=== PATIENT | female | born 1960 | race American Indian/Alaskan Native ===

== ENCOUNTER 2018-04-10 10:39 | Emergency (ER) | payer MEDICARE ==
[2018-04-10 11:46] VITALS: BP 149/67
[2018-04-10] MEDS ORDERED: NORCO 5/325 PO ONE (11:54)
--- NOTE | 2018-04-10 12:20 | Emergency Department Report ---
ED Headache HPI - General Chief Complaint: Dyspnea/Respdistress Stated Complaint: DIFFICULTY BREATHING/HEADACHE Time Seen by Provider: 04/10/18 11:24 - History of Present Illness Initial Comments: Ms. Guillermo is 58 yo female wit hx of ESRD, SC, HTN. She has had headache and shortness of breath for 2 weeks. These symptoms have occurred after dialysis. her traffic sign supervisor Dr. Scales has adjusted her dialysis due to these symptoms. However, she continues to have headache and dyspnea. Moderate left frontal left temporal headache throbbing. No chest pain. Timing/Duration: other (2 weeks) Quality: moderate Head Injury Location: frontal, temporal Recent Head Trauma: no recent headache/trauma Modifying Factors: improves with: other (none) Associated Symptoms: denies symptoms Allergies/Adverse Reactions: Allergies Penicillins Allergy (Severe, Verified 04/10/18 11:21) Anaphylaxis Calcium Channel Blocking Agent Dilt Allergy (Unknown, Verified 04/10/18 11:21) Unknown nifedipine Allergy (Unknown, Verified 04/10/18 11:23) Unknown JOHN Inhibitors Adverse Reaction (Unknown, Verified 04/10/18 11:20) Unknown Iodinated Contrast- Oral and IV Dye Adverse Reaction (Unknown, Verified 11:22) Unknown Home Medications: Ambulatory Orders traMADol [Ultram 50 MG tab] 50 mg PO Q6HR PRN #10 tablet 04/10/18 ED Review of Systems ROS: Stated complaint: DIFFICULTY BREATHING/HEADACHE Other details as noted in HPI Comment: All other systems reviewed and negative Constitutional: denies: fever, malaise Respiratory: denies: cough Cardiovascular: denies: chest pain ED Past Medical Hx - Past Medical History Previous Medical History?: Yes Hx Hypertension: Yes Hx Heart Attack/AMI: Yes (2010) Hx Renal Disease: Yes - Surgical History Past Surgical History?: Yes Hx Cholecystectomy: Yes (2011) Additional Surgical History: Stent x1 01/18, fistula left arm, gastric bypass 2013, - Social History Other Social History: lives with family, moved from [place] June 2017 - Medications Home Medications: Home Medications Medication Instructions Recorded Confirmed Last Taken Type traMADol [Ultram 50 MG tab] 50 mg PO Q6HR PRN #10 tablet 04/10/18 Unknown Rx ED Physical Exam - General Limitations: No Limitations General appearance: alert, in no apparent distress - Head Head exam: Present: atraumatic, normocephalic - Eye Eye exam: Present: normal appearance - ENT ENT exam: Present: mucous membranes moist - Neck Neck exam: Present: normal inspection. Absent: tenderness, meningismus - Respiratory Respiratory exam: Present: normal lung sounds bilaterally. Absent: respiratory distress - Cardiovascular Cardiovascular Exam: Present: regular rate, normal rhythm, normal heart sounds. Absent: systolic murmur, diastolic murmur, rubs, gallop - GI/Abdominal GI/Abdominal exam: Present: soft, normal bowel sounds. Absent: tenderness, guarding, rebound - Extremities Exam Extremities exam: Present: normal inspection - Back Exam Back exam: Present: normal inspection - Neurological Exam Neurological exam: Present: alert, oriented X3 - Psychiatric Psychiatric exam: Present: normal affect, normal mood - Skin Skin exam: Present: warm, dry, intact, normal color. Absent: rash ED Course Vital Signs 04/10/18 04/10/18 04/10/18 11:02 11:15 11:30 Temperature Pulse Rate 91 H 78 70 Respiratory 22 13 12 Rate Blood Pressure 136/61 149/67 Blood Pressure [Right] O2 Sat by Pulse 100 100 Oximetry 04/10/18 11:34 Temperature 98.9 F Pulse Rate 65 Respiratory 18 Rate Blood Pressure Blood Pressure 136/61 [Right] O2 Sat by Pulse 100 Oximetry ED Medical Decision Making - Lab Data Vital Signs - 24 hr 04/10/18 04/10/18 04/10/18 11:02 11:15 11:30 Temperature Pulse Rate 91 H 78 70 Respiratory 22 13 12 Rate Blood Pressure 136/61 149/67 Blood Pressure [Right] O2 Sat by Pulse 100 100 Oximetry 04/10/18 11:34 Temperature 98.9 F Pulse Rate 65 Respiratory 18 Rate Blood Pressure Blood Pressure 136/61 [Right] O2 Sat by Pulse 100 Oximetry - Medical Decision Making Headache and dyspnea after dialysis for 2 weeks. I do feel that her symptoms are related to dialysis treatment. While in the ED, Ms. Guillermo is resting comfortably, sleeping under the covers. No indication of CVA, intracranial hemorrhage, PE, pneumonia, CHF, ACS. I consulted Dr. Ortiz who was traffic sign supervisor on-call for [facility]. Dr. Ortiz recommended follow-up tomorrow at Dr. Scales's nephrology clinic. I have prescribed tramadol for headache as needed. Critical care attestation.: If time is entered above; I have spent that time in minutes in the direct care of this critically ill patient, excluding procedure time. ED Disposition Clinical Impression: Headache, Shortness of breath, End stage renal disease Disposition: TO HOME OR SELFCARE Is pt being admited?: No Does the pt Need Aspirin: No Condition: Stable Instructions: Acute Headache (ED) Prescriptions: traMADol [Ultram 50 MG tab] 50 mg PO Q6HR PRN #10 tablet PRN Reason: Headache Referrals: DOMINGA SCALES MD [Staff Physician] - 3-5 Days Time of Disposition: 12:50
== END 2018-04-10 13:18 | disposition home or self-care (01) ==
LOC: ED 10:39
DX: I12.0 Hypertensive chronic kidney disease with stage 5 chronic kidney disease or end stage renal disease (principal); N18.6 End stage renal disease; R51 Headache; R06.02 Shortness of breath; I25.2 Old myocardial infarction; Z90.49 Acquired absence of other specified parts of digestive tract; Z95.1 Presence of aortocoronary bypass graft; Z88.0 Allergy status to penicillin; Z91.041 Radiographic dye allergy status; Z99.2 Dependence on renal dialysis
CPT/HCPCS: 99283

== ENCOUNTER 2019-04-02 13:07 | Emergency (ER) | payer MEDICARE ==
--- NOTE | 2019-04-02 13:20 | Emergency Department Report ---
Blank Doc - Documentation Documentation: 59 y o female presents with nausea started sunday dialysis patient MWF denies dysuria,f/abd pain, diarhea
[2019-04-02 14:16] LABS: Basophils # (Auto) 0.1 K/mm3 (0.0-0.1); Basophils % (Auto) 0.7 % (0.0-1.8); Eosinophils # (Auto) 0.6 K/mm3 (0.0-0.4); Eosinophils % (Auto) 5.9 % (0.0-4.3); Hematocrit 41.9 % (30.3-42.9); Hemoglobin 13.8 gm/dl (10.1-14.3); Lymphocytes # (Auto) 1.1 K/mm3 (1.2-5.4); Lymphocytes % (Auto) 10.1 % (13.4-35.0); Mean Corpuscular HGB Conc 33 % (30-34); Mean Corpuscular Volume 97 fl (79-97); Monocytes # (Auto) 0.9 K/mm3 (0.0-0.8); Monocytes % (Auto) 8.1 % (0.0-7.3); Red Blood Count 4.33 M/mm3 (3.65-5.03); Red Cell Distribution Width 15.5 % (13.2-15.2)
[2019-04-02 14:23] LABS: Calcium 7.5 mg/dL (8.4-10.2)
[2019-04-02 16:11] LABS: Platelet Count 207 K/mm3 (140-440)
[2019-04-02] MEDS ORDERED: ZOFRAN IV ONE (18:03)
[2019-04-02] MEDS ORDERED: NACL 0.9% 500 ML 500 ML IV ONE (18:03)
--- NOTE | 2019-04-02 18:08 | Emergency Department Report ---
HPI - General Chief Complaint: Nausea/Vomiting/Diarrhea Time Seen by Provider: 04/02/19 13:17 - HPI HPI: Room 7 The patient is a 59-year-old female presenting with a chief complaint of nausea and lightheadedness. The patient states for the past 5 days she's had intermittent lightheadedness and nausea. The patient states during first day she had some vomiting but none recently. Patient denies diarrhea but states her stool has been black for the past 5 days. Patient denies history of fever. Patient denies use of Pepto-Bismol Location: [See above] Duration: [See above] Quality: [See above] Severity: [See above] Modifying factors: [see above] Context: [see above] Mode of transportation: [not driving] ED Past Medical Hx - Past Medical History Previous Medical History?: Yes Hx Hypertension: Yes Hx Heart Attack/AMI: Yes (2010) Hx Renal Disease: Yes - Surgical History Past Surgical History?: Yes Hx Cholecystectomy: Yes (2011) Additional Surgical History: Stent x1 01/18, fistula left arm, gastric bypass 2013, - Family History Family history: no significant - Social History Smoking Status: Never Smoker Substance Use Type: None, Alcohol (occasional) - Medications Home Medications: Home Medications Medication Instructions Recorded Confirmed Last Taken Type traMADol [Ultram 50 MG tab] 50 mg PO Q6HR PRN #10 tablet 04/10/18 Unknown Rx Promethazine [Phenergan] 25 mg PO Q6HR PRN #20 tab 04/03/19 Unknown Rx Promethazine [Phenergan] 25 mg ID Q6HR PRN #5 supp.rect 04/03/19 Unknown Rx ED Review of Systems ROS: Stated complaint: ABDOMINAL PAIN Other details as noted in HPI Constitutional: denies: fever Eyes: denies: eye pain ENT: denies: throat pain Respiratory: no symptoms reported Cardiovascular: denies: chest pain Endocrine: no symptoms reported Gastrointestinal: nausea, vomiting, melena. denies: abdominal pain, diarrhea Genitourinary: denies: dysuria Musculoskeletal: denies: back pain Neurological: denies: headache Physical Exam - Physical Exam Vital Signs: Vital Signs 04/02/19 13:16 Temperature 97.7 F Pulse Rate 63 Respiratory 16 Rate Blood Pressure 94/57 O2 Sat by Pulse 99 Oximetry Physical Exam: GENERAL: The patient is well-developed well-nourished female lying on stretcher not appear to be in acute distress. [] HEENT: Normocephalic. Atraumatic. Extraocular motions are intact. Patient has moist mucous membranes. NECK: Supple. Trachea midline CHEST/LUNGS: Clear to auscultation. There is no respiratory distress noted. HEART/CARDIOVASCULAR: Regular. There is no tachycardia. There is no gallop rub or murmur. ABDOMEN: Abdomen is soft, with mild midepigastric discomfort to palpation. No rebound or guarding. Patient has normal bowel sounds. There is no abdominal distention. SKIN: There is no rash. There is no edema. There is no diaphoresis. NEURO: The patient is awake, alert, and oriented. The patient is cooperative. The patient has normal speech MUSCULOSKELETAL: There is no evidence of acute injury. RECTAL: Guaiac negative brown stool ED Course Vital Signs 04/02/19 13:16 Temperature 97.7 F Pulse Rate 63 Respiratory 16 Rate Blood Pressure 94/57 O2 Sat by Pulse 99 Oximetry - Reevaluation(s) Reevaluation #1: 04/03/19 01:55 Patient tolerating by mouth. CT scan discussed with patient including left renal mass. Need for follow-up explained. Patient verbalized understanding ED Medical Decision Making - Lab Data Result diagrams: 04/02/19 13:32 04/02/19 13:32 - Differential Diagnosis GI bleed Critical care attestation.: If time is entered above; I have spent that time in minutes in the direct care of this critically ill patient, excluding procedure time. ED Disposition Clinical Impression: Nausea & vomiting Disposition: DC-01 TO HOME OR SELFCARE Is pt being admited?: No Does the pt Need Aspirin: No Condition: Stable Instructions: Acute Nausea and Vomiting (ED) Additional Instructions: Return to the emergency department immediately should you develop worsening symptoms, fever, inability to tolerate food or liquid or any other concerns. Prescriptions: Promethazine [Phenergan] 25 mg PO Q6HR PRN #20 tab PRN Reason: Nausea Promethazine [Phenergan] 25 mg ID Q6HR PRN #5 supp.rect PRN Reason: Vomiting Referrals: [facility] MD HERNANDO [Primary Care Provider] - 3-5 Days SITA MERRILL MD [Staff Physician] - [facility] (Dr. Merrill is a gastroenterologi st. Please follow up with him for further evaluation) Time of Disposition: 01:57
[2019-04-02 20:35] LABS: INR 1.13 (0.87-1.13)
[2019-04-02 20:36] LABS: Partial Thromboplastin Time 27.2 Sec. (24.2-36.6)
[2019-04-02 20:44] LABS: Alanine Aminotransferase 11 units/L (7-56); Albumin 3.7 g/dL (3.9-5)
[2019-04-02 20:51] LABS: Bilirubin,Direct < 0.2 mg/dL (0-0.2)
[2019-04-02] MEDS ORDERED: REGLAN IV ONE (23:23)
--- NOTE | 2019-04-03 01:05 | Cat Scan Report ---
PROCEDURE: CT abdomen and pelvis without contrast. TECHNIQUE: Computerized axial tomography of the abdomen and pelvis was performed without intravenous contrast. This study is performed without intravascular contrast material and its sensitivity for ab dominal and pelvic pathology, including neoplasms, inflammation, abscess, free fluid, thrombosis, art erial dissection and infarction, is reduced compared with a contrast enhanced study. CT DOSE LENGTH PRODUCT: 1536.1 mGycm HISTORY: vomiting COMPARISONS: None. FINDINGS: The lung bases are clear. There are no pleural effusions. The heart size is normal. The liver, pancre as and spleen are grossly normal. Cholecystectomy clips are present. There is no biliary dilatation. The adrenal glands are not enlarged. Both kidneys are very small. There is a low-attenuation mass in the lateral aspect of the left kidney. This measures 1.6 cm in diameter. This could represent a simpl e cyst. It is an indeterminate finding. It be better evaluated by ultrasound scanning. The abdominal aorta has a normal caliber. There is no retroperitoneal adenopathy. There are surgical shannan in the stomach. There are also some small bowel surgical shannan. There are no signs of intestinal obstruct ion. A normal appendix is visible. There are a few diverticula in the sigmoid colon. The bladder, christi marcie and adnexal regions are unremarkable. There is a small midline ventral wall hernia located superi or to the umbilicus. This contains abdominal fat. The regional skeleton appears intact. There is paige re disc space narrowing at L5-S1. IMPRESSION: Previous cholecystectomy. Bilateral renal atrophy. Small indeterminate left renal mass. Ultrasound ev aluation should be considered. Previous gastric and small bowel surgery. Small ventral wall hernia co ntaining fat. This document is electronically signed by Miguel Fletcher MD., April 03 2019 01:03:34 AM ET
[2019-04-03] MEDS ORDERED: PHENERGAN PO ONE (01:14)
[2019-04-03 02:44] VITALS: BP 129/55
== END 2019-04-03 02:30 | disposition home or self-care (01) ==
LOC: ED 13:07
DX: R11.2 Nausea with vomiting, unspecified (principal); R42 Dizziness and giddiness; I10 Essential (primary) hypertension; I21.9 Acute myocardial infarction, unspecified; K92.1 Melena; Z88.0 Allergy status to penicillin; Z88.8 Allergy status to other drugs, medicaments and biological substances; Z87.442 Personal history of urinary calculi; Z90.49 Acquired absence of other specified parts of digestive tract; Z95.1 Presence of aortocoronary bypass graft; Z98.84 Bariatric surgery status; Z79.899 Other long term (current) drug therapy
CPT/HCPCS: 36415; 74176; 80048; 80076; 82271; 85025; 85610; 85730; 86850; 86900; 86901; 96374; 96375; 99284; J2405; J2765; J7040; Q0169

== ENCOUNTER 2019-04-07 10:19 | Inpatient (IN) | payer MEDICARE ==
--- NOTE | 2019-04-07 11:19 | Emergency Department Report ---
Vomiting/Diarrhea - HPI Chief Complaint: Abdominal Pain Stated Complaint: ABD PAIN/NAUSEA Time Seen by Provider: 04/07/19 10:57 Duration: 5 Days Severity: mild Nausea/Vomiting Severity: Mild Diarrhea Severity: None Pain Location: Right Sided Pain Severity: Mild Symptoms: Yes Able to Tolerate Fluids, No Watery Diarrhea, No Bloody diarrhea, No Fever, No Recent Unusual Foods, No Recent Untreated Water, No Recent use of Antibiotics, No Family w/ Similar Symptoms, No Contacts w/ Similar Symptoms, No Rash, No Hematuria, No Recent URI Symptoms Other History: This is a 59-year-old female who presents to the emergency room with nausea and vomiting for several days. Patient states she was seen in this emergency room 3 days ago with similar symptoms. She was diagnosed with a mass to the left kidney. Patient was referred to senior javascript engineer with no follow- up. Patient states her symptoms are not improving with nausea medication prescribed. She reports pain is all right upper quadrant abdominal pain radiating to back. Patient states she usually have dialysis today but didn't go due to not feeling well. She denies diarrhea, urinary frequency, urgency, dysuria, fever, or chills. ED Review of Systems ROS: Stated complaint: ABD PAIN/NAUSEA Other details as noted in HPI Constitutional: denies: chills, fever Respiratory: denies: cough, shortness of breath, wheezing Cardiovascular: denies: chest pain, palpitations Gastrointestinal: abdominal pain, nausea, vomiting. denies: diarrhea Genitourinary: denies: urgency, dysuria, discharge Musculoskeletal: back pain Skin: denies: rash, lesions Neurological: denies: headache, weakness, paresthesias Psychiatric: denies: anxiety, depression ED Past Medical Hx - Past Medical History Previous Medical History?: Yes Hx Hypertension: Yes Hx Heart Attack/AMI: Yes (2010) Hx Renal Disease: Yes - Surgical History Past Surgical History?: Yes Hx Cholecystectomy: Yes (2011) Additional Surgical History: Stent x1 01/18, fistula left arm, gastric bypass 2013, - Social History Smoking Status: Never Smoker Substance Use Type: None - Medications Home Medications: Home Medications Medication Instructions Recorded Confirmed Last Taken Type traMADol [Ultram 50 MG tab] 50 mg PO Q6HR PRN #10 tablet 04/10/18 Unknown Rx Promethazine [Phenergan] 25 mg PO Q6HR PRN #20 tab 04/03/19 Unknown Rx Promethazine [Phenergan] 25 mg AR Q6HR PRN #5 supp.rect 04/03/19 Unknown Rx Vomiting Diarrhea Exam - Exam General: Vital signs noted. No distress. Alert and acting appropriately. HEENT: Yes Moist Mucous Membranes, No Pharyngeal Erythema, No Pharyngeal Exudates, No Rhinorrhea, No Conjuctival Injection, No Frontal Tenderness, No Maxillary Tenderness Neck: No Adenopathy, No Rigidity Lungs: Yes Clear Lung Sounds, Yes Good Air Exchange, No Wheezes, No Stridor, No Cough, No Nasal Flaring, No Retractions, No Use of Accessory Muscles Heart exam: Regular: Yes, Murmur: No, Tachycardia: No Abdomen: Tenderness: Yes (right upper quadrant and right lower quadrant), Peritoneal Signs: No, Distention: No, Hyperactive Bowel sounds: No Skin exam: Rash: No, Edema: No, Normal turgor: Yes Neurologic: Alert and oriented, no deficits. Musculoskeletal: Unremarkable. ED Course Vital Signs 04/07/19 10:25 Temperature 98.2 F Pulse Rate 61 Respiratory 18 Rate Blood Pressure 139/63 O2 Sat by Pulse 99 Oximetry - Reevaluation(s) Reevaluation #1: 04/07/19 12:34 Consulted [facility] and spoke with nurse practitioner Christine Lewis on behalf of Dr. Kimball to admit for dialysis. 7 requested nephrology agreed to admit patient for dialysis via hospitalist. Consulted Dr. Nieto who agreed to admit patient. ED Medical Decision Making - Lab Data Result diagrams: 04/07/19 11:27 04/07/19 11:27 Lab Results 04/07/19 04/07/19 Range/Units 11:27 11:27 WBC 9.3 (4.5-11.0) K/mm3 RBC 4.41 (3.65-5.03) M/mm3 Hgb 14.2 (10.1-14.3) gm/dl Hct 43.3 H (30.3-42.9) % MCV 98 H (79-97) fl MCH 32 (28-32) pg MCHC 33 (30-34) % RDW 15.7 H (13.2-15.2) % Plt Count 180 (140-440) K/mm3 Sodium 135 L (137-145) mmol/L Potassium 6.2 H* D (3.6-5.0) mmol/L Chloride 97.4 L (98-107) mmol/L Carbon Dioxide 18 L (22-30) mmol/L Anion Gap 26 mmol/L BUN 78 H (7-17) mg/dL Creatinine 14.1 H (0.7-1.2) mg/dL Estimated GFR 3 ml/min BUN/Creatinine Ratio 6 % Glucose 94 (65-100) mg/dL Calcium 7.3 L (8.4-10.2) mg/dL - EKG Data -: No EKG Interpreted by Me (EKG interpreted by attending Dr. Kaba) EKG shows normal: sinus rhythm Rate: bradycardia - Medical Decision Making Patient was examined by me. Vitals are normal and patient is in no acute distress. Past medical history IA in 2010, hypertension, and end-stage renal disease on dialysis. She was seen in this emergency room 5 days ago with similar symptoms. She had labs and CT of abdomen and pelvis. The CT found a left renal mass and small ventral wall hernia. The patient was referred to Dr. Merrill who is a senior javascript engineer for follow-up which she has not called and made an appointment. Some labs were obtained to rule out dehydration. Patient instructed to follow-up with the senior javascript engineer and the importance. Reviewed labs and require dialysis. Consulted attending Jemma Collins who advised patient be admitted. Consulted her industrial plant custodian at [facility] who agreed to admit the patient via hospitalist. Consulted Dr. Nieto who agreed to admit patient. Critical care attestation.: If time is entered above; I have spent that time in minutes in the direct care of this critically ill patient, excluding procedure time. ED Disposition Clinical Impression: ESRD on dialysis, Acute renal disease, Hyperkalemia Nausea & vomiting Qualifiers: Vomiting type: unspecified Vomiting Intractability: non-intractable Qualified Code(s): R11.2 - Nausea with vomiting, unspecified Disposition: DC-09 OP ADMIT IP TO THIS HOSP Is pt being admited?: Yes Condition: Stable Instructions: Abdominal Pain (ED) Referrals: BRAEDEN SETHI MD [Primary Care Provider] - 3-5 Days
[2019-04-07 11:52] LABS: Hematocrit 43.3 % (30.3-42.9); Hemoglobin 14.2 gm/dl (10.1-14.3); Mean Corpuscular HGB Conc 33 % (30-34); Mean Corpuscular Volume 98 fl (79-97); Platelet Count 180 K/mm3 (140-440); Red Blood Count 4.41 M/mm3 (3.65-5.03); Red Cell Distribution Width 15.7 % (13.2-15.2)
[2019-04-07 12:03] LABS: Calcium 7.3 mg/dL (8.4-10.2)
[2019-04-07] MEDS ORDERED: KIONEX PO ONE (12:38)
[2019-04-07] MEDS ORDERED: CALCIUM CHLORIDE 1,000 MG in NACL 0.9% 100 ML IV ONE (12:38)
--- NOTE | 2019-04-07 12:54 | History and Physical Report ---
History of Present Illness Chief complaint: My stomach hurts, and Im nauseated, and rudy been throwing up. History of present illness: 59 YO Female with ESRD on HD (M,W,F), Obesity S/P Gastric Bypass, Noncompliant with low carbohydrate diet, CAD S/P Stent Placement, HTN, Obesity, ME presents to ED for evaluation. Pt states that she has experienced Abdominal pain over the past 1 week, with worsening symptoms over the past 3 days. Pt also reports nausea, multiple episodes of bilious vomiting. Pt states that pain is 5-6/10, localized to the Right Upper quadrant with radiating to the back. Pt states that she was feeling too sick today to go to dialysis. Pt transported to [facility] via private vehicle. Pt seen and evaluated in ED and found to have ESRD in need of dialysis, Acidosis, Abdominal Pain. No prior admissions for review. All listed medication reconciled at time of admission. CT Abdomen/Pelvis pending at time of admission. Pt admitted to medical floor with remote telemetry. Nephrology consulted in ED. Dialysis as per renal team. No prior admission for review. Past History Past Medical History: acute ME, CAD, ESRD, hypertension, other (Obesity') Past Surgical History: cholecystectomy, Other (AV Fistula, Cardiac Stent Placement.) Social history: single. denies: smoking, alcohol abuse Family history: CAD, hypertension Medications and Allergies Allergies Allergy/AdvReac Type Severity Reaction Status Date / Time Penicillins Allergy Severe Anaphylaxis Verified 04/10/18 11:21 Calcium Channel Blocking Allergy Unknown Unknown Verified 04/10/18 11:21 Agent Dilt nifedipine Allergy Unknown Unknown Verified 04/10/18 11:23 JOHN Inhibitors AdvReac Unknown Unknown Verified 04/10/18 11:20 Iodinated Contrast- Oral and AdvReac Unknown Unknown Verified 04/10/18 11:22 IV Dye Home Medications Medication Instructions Recorded Confirmed Last Taken Type traMADol [Ultram 50 MG tab] 50 mg PO Q6HR PRN #10 tablet 04/10/18 Unknown Rx Promethazine [Phenergan] 25 mg PO Q6HR PRN #20 tab 04/03/19 Unknown Rx Promethazine [Phenergan] 25 mg IN Q6HR PRN #5 supp.rect 04/03/19 Unknown Rx Exam - Constitutional Vitals: Temp Pulse Resp BP Pulse Ox 98.2 F 61 17 139/63 99 04/07/19 10:25 04/07/19 10:25 04/07/19 11:43 04/07/19 10:25 04/07/19 10:25 General appearance: Present: mild distress, obese - EENT Eyes: Present: PERRL ENT: hearing intact, clear oral mucosa - Neck Neck: Present: supple, normal ROM - Respiratory Respiratory effort: normal Respiratory: bilateral: CTA - Cardiovascular Heart Sounds: Present: S1 & S2. Absent: rub, click - Extremities Extremities: pulses symmetrical, No edema Peripheral Pulses: within normal limits - Abdominal General gastrointestinal: Present: soft, tender, non-distended, normal bowel sounds. Absent: hepatomegaly, splenomegaly, mass Localized gastrointestinal: tender: RUQ Female genitourinary: Present: normal - Integumentary Integumentary: Present: clear, warm, dry - Musculoskeletal Musculoskeletal: gait normal, strength equal bilaterally - Psychiatric Psychiatric: appropriate mood/affect, intact judgment & insight - Neurologic Neurologic: CNII-XII intact, moves all extremities Results - Labs CBC & Chem 7: 04/07/19 11:27 04/07/19 11:27 Labs: Abnormal lab results 04/07/19 04/07/19 Range/Units 11:27 11:27 Hct 43.3 H (30.3-42.9) % MCV 98 H (79-97) fl RDW 15.7 H (13.2-15.2) % Sodium 135 L (137-145) mmol/L Potassium 6.2 H* D (3.6-5.0) mmol/L Chloride 97.4 L (98-107) mmol/L Carbon Dioxide 18 L (22-30) mmol/L BUN 78 H (7-17) mg/dL Creatinine 14.1 H (0.7-1.2) mg/dL Calcium 7.3 L (8.4-10.2) mg/dL Assessment and Plan - Patient Problems (1) ESRD on dialysis Current Visit: Yes Status: Acute Plan to address problem: Nephrology notified in ED by ED staff, dialysis as per renal team, strict I/O, monitor uop q shift, avoid nephrotoxic agents. (2) Abdominal pain Current Visit: Yes Status: Acute Qualifiers: Abdominal location: right upper quadrant Qualified Code(s): R10.11 - Right upper quadrant pain Plan to address problem: CT Abdomen Pelvis/pending at time of admission. supportive care. CT Abdomen/Pelvis to evaluate for possible anastomotic leak versus ulcer, carafate po x1, (3) CAD (coronary artery disease) Current Visit: Yes Status: Acute Qualifiers: Associated angina: without angina Plan to address problem: Risk factor reduction, low cholesterol diet, statin therapy as indicated, (4) HTN (hypertension) Current Visit: Yes Status: Acute Qualifiers: Hypertension type: essential hypertension Qualified Code(s): I10 - Essential (primary) hypertension Plan to address problem: monitor bp q shift, continue medical management. (5) Acidosis Current Visit: Yes Status: Acute Plan to address problem: repeat bmp, dialysis as per renal team. (6) Hyperkalemia Current Visit: Yes Status: Acute Plan to address problem: IV calcium gluconate, kayexelate, No EKG changes, urgent dialysis. (7) Left renal mass Current Visit: Yes Status: Acute Plan to address problem: Incidental finding on CT Abdomen/Pelvis. Outpatient urology F/U. (8) DVT prophylaxis Current Visit: Yes Status: Acute Plan to address problem: SCD to BLE while in bed.
[2019-04-07] MEDS ORDERED: NACL 0.9% 100 ML IV PRN (13:02)
[2019-04-07 13:34] LABS: Alanine Aminotransferase 5 units/L (7-56); Albumin 3.8 g/dL (3.9-5)
[2019-04-07 14:12] LABS: Bilirubin,Direct < 0.2 mg/dL (0-0.2)
[2019-04-07] MEDS ORDERED: SODIUM CHLORIDE FLUSH SYRINGE 10 ML IV PRN (14:23)
[2019-04-07] MEDS ORDERED: TYLENOL PO PRN (14:23)
[2019-04-07] MEDS ORDERED: PROVENTIL IH PRN (14:23)
[2019-04-07] MEDS ORDERED: ZOFRAN IV PRN (14:23)
[2019-04-07] MEDS ORDERED: CARAFATE PO ONE (14:48)
[2019-04-07 17:14] LABS: Hepatitis B Surface Antigen Non-Reactive (Negative); Hepatitis C Virus Antibody Non-Reactive (NonReactive)
--- NOTE | 2019-04-07 19:51 | Cat Scan Report ---
CT abdomen pelvis wo con INDICATION: Right sided pain. TECHNIQUE: All CT scans at this location are performed using the following dose modulation technique: Automated exposure control. CONTRAST: None. COMPARISON: CT abdomen and pelvis 04/02/2019. CT abdomen: Evaluation of the parenchymal organs again demonstrates bilateral renal atrophy. A low d ensity left renal lesion measuring 1.6 cm is likely an incidental cyst. Negative for abdominal mass, fluid collection or inflammation. A fat-containing ventral hernia to the right of midline lies several CM above the umbilicus remains. Status post previous gastric bypass and cholecystectomy. Negative for biliary dilatation. CT PELVIS: Negative for mass, fluid collection or inflammation. A few noninflamed sigmoid diverticula are noted. IMPRESSION: 1. Negative for obstruction or active inflammation. 2. Incidental findings unchanged. Signer Name: Johnathon Pro MD Signed: 04/07/2019 6:46 PM Workstation Name: [id number]
[2019-04-08] MEDS: SODIUM CHLORIDE FLUSH SYRINGE 10 ML IV SCH ×3 (01:16→22:06)
[2019-04-08] MEDS: KIONEX PO ONE ×2 (08:30→09:30)
--- NOTE | 2019-04-08 08:32 | XRay Report ---
CHEST 2 VIEWS INDICATION: Pain. COMPARISON: None. FINDINGS: Support devices: None. Heart: Within normal limits. Lungs/Pleura: Mild parenchymal change at the right base No significant pleural effusion. IMPRESSION: Mild parenchymal change right base. Atelectasis is favored over pneumonia. Signer Name: Johnathon Pro MD Signed: 04/08/2019 7:27 AM Workstation Name: [id number]
--- NOTE | 2019-04-08 08:44 | Consultation ---
History of Present Illness - Reason for Consult Consult date: 04/08/19 end stage renal disease, hyperkalemia - History of Present Illness Mrs. Guillermo is a 59yo with ESRD on HD (M,W,F), hx of gastric bypass and cholecystectomy who presented to the ED with c/o abdominal pain, nausea and intermittent episodes of vomiting. She denies constipation, diarrhea, BRBPR, melena. Presently, she denies chest pain and SOB. In the ED, CT abd/pelvis was obtained and was unremarkable. Labs were notable for K 6.2. Nephrology was consulted for management of hyperkalemia, ESRD. Past History Past Medical History: acute LA, CAD (s/p LHC with PCI), ESRD, hypertension Past Surgical History: cholecystectomy, Other (AV Fistula creation, Parathyroidectomy, tubal ligation) Social history: single. denies: smoking, alcohol abuse Family history: CAD, hypertension Medications and Allergies Allergies Allergy/AdvReac Type Severity Reaction Status Date / Time Penicillins Allergy Severe Anaphylaxis Verified 04/10/18 11:21 Calcium Channel Blocking Allergy Unknown Unknown Verified 04/10/18 11:21 Agent Dilt nifedipine Allergy Unknown Unknown Verified 04/10/18 11:23 JOHN Inhibitors AdvReac Unknown Unknown Verified 04/10/18 11:20 Iodinated Contrast- Oral and AdvReac Unknown Unknown Verified 04/10/18 11:22 IV Dye Home Medications Medication Instructions Recorded Confirmed Last Taken Type traMADol [Ultram 50 MG tab] 50 mg PO Q6HR PRN #10 tablet 04/10/18 04/08/19 Unknown Rx Promethazine [Phenergan] 25 mg PO Q6HR PRN #20 tab 04/03/19 04/08/19 Unknown Rx Promethazine [Phenergan] 25 mg RI Q6HR PRN #5 supp.rect 04/03/19 04/08/19 Unknown Rx Active Meds: Active Medications Acetaminophen (Tylenol) 650 mg PO Q4H PRN PRN Reason: Pain MILD(1-3)/Fever >100.5/BROWN Albuterol (Proventil) 2.5 mg IH Q4HRT PRN PRN Reason: Shortness Of Breath Sodium Chloride (Nacl 0.9%) 100 mls @ 999 mls/hr IV LUIS E PRN PRN Reason: Hypotension Ondansetron HCl (Zofran) 4 mg IV Q8H PRN PRN Reason: Nausea And Vomiting Last Admin: 04/08/19 08:41 Dose: 4 mg Documented by: Sodium Chloride (Sodium Chloride Flush Syringe 10 Ml) 10 ml IV BID THERESE Last Admin: 04/08/19 01:16 Dose: 10 ml Documented by: Sodium Chloride (Sodium Chloride Flush Syringe 10 Ml) 10 ml IV PRN PRN PRN Reason: LINE FLUSH Review of Systems All systems: negative Exam - Vital Signs Vital signs: Vital Signs Temp Pulse Resp BP Pulse Ox 98.2 F 61 18 139/63 99 04/07/19 10:25 04/07/19 10:25 04/07/19 10:25 04/07/19 10:25 04/07/19 10:25 - General Appearance General appearance: well-developed, well-nourished EENT: ATNC Respiratory: Clear to Ascultation Heart: regular, S1S2 Gastrointestinal: Present: normal. Absent: tenderness, distended Integumentary: no rash, warm and dry Neurologic: no focal deficit Musculoskeletal: Absent: other Psychiatric: cooperative Results - Lab Results 04/07/19 11:27 04/07/19 11:27 Most recent lab results Calcium 7.3 mg/dL (8.4-10.2) L 04/07/19 11:27 Assessment and Plan Impression: * End stage renal disease on hemodialysis MWF * Hyperkalemia * Abdominal pain/nausea/vomiting * Anemia secondary to ESRD * Secondary hyperparathyroidism w/ hx of parathyroidectomy * Hypocalcemia s/p parathyroidectomy Plan: * Patient is s/p hemodialysis yesterday * AM BMP ordered and pending * Continue outpatient HD MWF schedule * UF as tolerated * Hold antiHTN (Hydralazine 25mg BID) for now * Resume PhosLo TID, Calcitriol and Tums supplement * Epogen TIW prn * Renal diet
[2019-04-08] MEDS ORDERED: NACL 0.9% 100 ML IV PRN (09:03)
[2019-04-08 10:46] LABS: Calcium 7.6 mg/dL (8.4-10.2)
[2019-04-08] MEDS: TUMS PO SCH ×2 (11:23→22:05)
[2019-04-08] MEDS: PHOSLO PO SCH ×2 (11:23→17:24)
[2019-04-08] MEDS: ROCALTROL PO SCH (12:00)
--- NOTE | 2019-04-08 13:21 | Progress Note ---
Assessment and Plan Assessment and plan: (1) ESRD on dialysis - Nephrology consulted and dialysis (2) Abdominal pain - CT abdomen and pelvis is negative - Symptomatic treatment - Likely uremia induced (3) CAD (coronary artery disease) -Continue home medications (4) HTN (hypertension) - Continue home medications (5) Acidosis -Resolved with dialysis (6) Hyperkalemia - Resolved after dialysis and Kayexalate (7) Left renal mass Incidental finding on CT Abdomen/Pelvis. Outpatient urology F/U. (8) DVT prophylaxis SCD to BLE while in bed. Disposition; possible discharge tomorrow if the patient's getting better. History Interval history: Patient was seen and evaluated this morning, patient started complaining of pain, nausea and vomiting. Hospitalist Physical - Physical exam Narrative exam: Not in cardiopulmonary distress. The patient is obese. Vital signs as documented. Head exam is unremarkable. No scleral icterus . Neck is without jugular venous distension, thyromegaly, or carotid bruits. Lungs are clear to auscultation. Cardiac exam reveals regular rate and Rhythm. First and second heart sounds normal. No murmurs, rubs or gallops. Abdominal exam reveals normal bowel sounds, no masses, no organomegaly and no aortic enlargement. Extremities are nonedematous and both femoral and pedal pulses are normal. CAR SCRUBBER: Alert and oriented 3. No focal weakness. - Constitutional Vitals: Temp Pulse Resp BP Pulse Ox 97.8 F 56 L 19 119/63 98 04/08/19 11:39 04/08/19 11:39 04/08/19 11:39 04/08/19 11:39 04/08/19 11:39 General appearance: Present: mild distress, obese Results - Labs CBC & Chem 7: 04/07/19 11:27 04/08/19 10:02 Labs: Laboratory Last Values WBC 9.3 K/mm3 (4.5-11.0) 04/07/19 11:27 RBC 4.41 M/mm3 (3.65-5.03) 04/07/19 11:27 Hgb 14.2 gm/dl (10.1-14.3) 04/07/19 11:27 Hct 43.3 % (30.3-42.9) H 04/07/19 11:27 MCV 98 fl (79-97) H 04/07/19 11:27 MCH 32 pg (28-32) 04/07/19 11:27 MCHC 33 % (30-34) 04/07/19 11:27 RDW 15.7 % (13.2-15.2) H 04/07/19 11:27 Plt Count 180 K/mm3 (140-440) 04/07/19 11:27 Sodium 136 mmol/L (137-145) L 04/08/19 10:02 Potassium 4.4 mmol/L (3.6-5.0) D 04/08/19 10:02 Chloride 94.7 mmol/L (98-107) L 04/08/19 10:02 Carbon Dioxide 25 mmol/L (22-30) D 04/08/19 10:02 21 mmol/L 04/08/19 10:02 BUN 34 mg/dL (7-17) H 04/08/19 10:02 8.6 mg/dL (0.7-1.2) H 04/08/19 10:02 Estimated GFR 6 ml/min 04/08/19 10:02 4 % 04/08/19 10:02 Glucose 104 mg/dL (65-100) H 04/08/19 10:02 Calcium 7.6 mg/dL (8.4-10.2) L 04/08/19 10:02 0.40 mg/dL (0.1-1.2) 04/07/19 11:27 < 0.2 mg/dL (0-0.2) 04/07/19 11:27 AST 21 units/L (5-40) 04/07/19 11:27 ALT 5 units/L (7-56) L 04/07/19 11:27 81 units/L (35-129) 04/07/19 11:27 8.1 g/dL (6.3-8.2) 04/07/19 11:27 3.8 g/dL (3.9-5) L 04/07/19 11:27 0.9 % 04/07/19 11:27 Hepatitis A IgM Ab Non-reactive (NonReactive) 04/07/19 13:12 Hep Bs Antigen Non-reactive (Negative) 04/07/19 13:12 Hep B Core IgM Ab Non-reactive (NonReactive) 04/07/19 13:12 Non-reactive (NonReactive) 04/07/19 13:12 Active Medications - Current Medications Current Medications: Generic Name Dose Route Start Last Admin Trade Name Freq PRN Reason Stop Dose Admin Acetaminophen 650 mg 04/07/19 14:23 Tylenol PO Q4H PRN Pain MILD(1-3)/Fever >100.5/BROWN Albuterol 2.5 mg 04/07/19 14:23 Proventil IH Q4HRT PRN Shortness Of Breath Calcitriol 0.5 mcg 04/08/19 12:00 Rocaltrol PO QDAY THERESE Calcium Acetate 1,334 mg 04/08/19 12:00 04/08/19 11:23 Phoslo PO 1,334 mg TIDWM THERESE Administration Calcium Carbonate/Glycine 500 mg 04/08/19 11:00 04/08/19 11:23 Tums PO 500 mg BID THERESE Administration Famotidine 10 mg 04/08/19 22:00 Pepcid PO BID THERESE Sodium Chloride 100 mls @ 999 mls/hr 04/08/19 09:03 Nacl 0.9% IV LUIS E PRN Hypotension Ondansetron HCl 4 mg 04/07/19 14:23 04/08/19 08:41 Zofran IV 4 mg Q8H PRN Administration Nausea And Vomiting Sodium Chloride 10 ml 04/07/19 22:00 04/08/19 09:22 Sodium Chloride Flush Syringe 10 Ml IV 10 ml BID THERESE Administration Sodium Chloride 10 ml 04/07/19 14:23 Sodium Chloride Flush Syringe 10 Ml IV PRN PRN LINE FLUSH
[2019-04-08] MEDS ORDERED: REGLAN PO PRN (13:22)
[2019-04-08] MEDS ORDERED: PERCOCET 5/325 PO PRN (13:23)
[2019-04-08] MEDS ORDERED: PEPCID PO SCH (22:00)
[2019-04-08] MEDS: PEPCID PO SCH (22:05)
[2019-04-09 08:28] LABS: Calcium 7.2 mg/dL (8.4-10.2)
--- NOTE | 2019-04-09 09:04 | Discharge Summary ---
Providers - Providers Date of Admission: 04/07/19 14:23 Attending physician: JASON MARTINEZ MD 04/08/19 08:22 Consult to Physician [CONS] Routine Comment: Consulting Provider: ALY CARTWRIGHT Physician Instructions: Reason For Exam: ESRD need dialysis Primary care physician: BRAEDEN SETHI Hospitalization Reason for admission: abdominal pain, ESRD on HD Condition: Stable Hospital course: 59 YO Female with ESRD on HD (M,W,F), Obesity S/P Gastric Bypass, Noncompliant with low carbohydrate diet, CAD S/P Stent Placement, HTN, Obesity, [place] presents to ED for evaluation. Pt states that she has experienced Abdominal pain over the past 1 week, with worsening symptoms over the past 3 days. Pt also reports nausea, multiple episodes of bilious vomiting. Pt states that pain is 5-6/10, localized to the Right Upper quadrant with radiating to the back. Pt states that she was feeling too sick today to go to dialysis. Pt transported to [facility] via private vehicle. Pt seen and evaluated in ED and found to have ESRD in need of dialysis, Acidosis, Abdominal Pain. No prior admissions for review. All listed medication reconciled at time of admission. CT Abdomen/Pelvis pending at time of admission. Pt admitted to medical floor with remote telemetry. Nephrology consulted in ED. Dialysis as per renal team. No prior admission for review. Patient admitted to the floor and abdominal pain is due to uremia, patient gets hemodialysis, nephrology wasn't appreciated. Abdominal pain was treated symptomatically and getting better. Abdominal pain subsided, patient is hemodynamically stable. Patient will be discharged home after hemodialysis. Appropriate medication prescription given at the time of discharge. Patient was evaluated for this before discharge. Disposition: TO HOME OR SELFCARE Time spent for discharge: 32 minutes - Discharge Diagnoses (1) Abdominal pain Status: Acute Qualifiers: Abdominal location: right upper quadrant Qualified Code(s): R10.11 - Right upper quadrant pain (2) Acidosis Status: Acute (3) ESRD on dialysis Status: Acute (4) HTN (hypertension) Status: Acute Qualifiers: Hypertension type: essential hypertension Qualified Code(s): I10 - Essential (primary) hypertension (5) Hyperkalemia Status: Acute Core Measure Documentation - Palliative Care Palliative Care/ Comfort Measures: Not Applicable - Core Measures Any of the following diagnoses?: none Exam - Physical Exam Narrative exam: Not in cardiopulmonary distress. The patient is obese. Vital signs as documented. Head exam is unremarkable. No scleral icterus . Neck is without jugular venous distension, thyromegaly, or carotid bruits. Lungs are clear to auscultation. Cardiac exam reveals regular rate and Rhythm. First and second heart sounds normal. No murmurs, rubs or gallops. Abdominal exam reveals normal bowel sounds, no masses, no organomegaly and no aortic enlargement. Extremities are nonedematous and both femoral and pedal pulses are normal. [employer] SPACELIFT: Alert and oriented 3. No focal weakness. - Constitutional Vitals: Temp Pulse Resp BP Pulse Ox 98.6 F 60 16 104/51 95 04/09/19 05:30 04/09/19 05:30 04/09/19 05:30 04/09/19 05:30 04/09/19 05:30 Plan Activity: no restrictions Weight Bearing Status: Full Weight Bearing Diet: low salt, renal Follow up with: BRAEDEN SETHI MD [Primary Care Provider] - 3-5 Days Prescriptions: oxyCODONE /ACETAMINOPHEN [Percocet 5/325 mg] 1 tab PO Q6H PRN #10 tablet PRN Reason: Pain, Moderate (4-6) Metoclopramide HCl [Reglan TAB] 10 mg PO TIDAC #30 tablet
[2019-04-09] MEDS ORDERED: REGLAN PO PRN (12:00)
[2019-04-09] MEDS: PEPCID PO SCH (14:01)
[2019-04-09] MEDS: PHOSLO PO SCH ×2 (14:01)
[2019-04-09] MEDS: TUMS PO SCH (14:01)
[2019-04-09] MEDS: SODIUM CHLORIDE FLUSH SYRINGE 10 ML IV SCH (14:02)
[2019-04-09] MEDS: ROCALTROL PO SCH (14:02)
[2019-04-09 15:21] VITALS: BP 154/78
[2019-04-09] MEDS ORDERED: NACL 0.9 (PRIMING MACHINE ONLY DIALYSIS) MC ONE (16:49)
== END 2019-04-09 15:30 | disposition home or self-care (01) | DRG 682 ==
LOC: ED 10:19 → 3A 14:23
PROVIDERS: ADMIT Internal Medicine; ATTEND Internal Medicine
PROC: 5A1D70Z Performance of Urinary Filtration, Intermittent, Less than 6 Hours Per Day (ICD-10-PCS; principal; 2019-04-07)
PROC: 5A1D70Z Performance of Urinary Filtration, Intermittent, Less than 6 Hours Per Day (ICD-10-PCS; 2019-04-09)
DX: I12.0 Hypertensive chronic kidney disease with stage 5 chronic kidney disease or end stage renal disease (principal); N18.6 End stage renal disease; E87.2 Acidosis; N25.81 Secondary hyperparathyroidism of renal origin; E87.5 Hyperkalemia; E66.9 Obesity, unspecified; N28.89 Other specified disorders of kidney and ureter; D63.1 Anemia in chronic kidney disease; I25.10 Atherosclerotic heart disease of native coronary artery without angina pectoris; Z99.2 Dependence on renal dialysis; Z68.38 Body mass index [BMI] 38.0-38.9, adult; Z95.5 Presence of coronary angioplasty implant and graft; I25.2 Old myocardial infarction; Z82.49 Family history of ischemic heart disease and other diseases of the circulatory system; Z90.49 Acquired absence of other specified parts of digestive tract; Z88.0 Allergy status to penicillin; Z88.8 Allergy status to other drugs, medicaments and biological substances; Z98.51 Tubal ligation status
CPT/HCPCS: 36415; 71046; 74176; 80048; 80074; 80076; 85027; 93005; 93010; 96365; G0378; J2405; J7030

== ENCOUNTER 2019-11-21 10:19 | Emergency (ER) | payer MEDICARE ==
[2019-11-21 10:35] VITALS: BP 165/86
--- NOTE | 2019-11-21 11:18 | Emergency Department Report ---
ED General Adult HPI - General Chief complaint: Fall Stated complaint: FALL INJURY/LOWER BACK/TAILBONE Time Seen by Provider: 11/21/19 11:04 Source: patient Mode of arrival: Ambulatory Limitations: No Limitations - History of Present Illness Initial comments: This is a 59-year-old female who presents to the ED complaining of lower back pain status post fall while she was in the kitchen in her home on Sunday afternoon. Patient states she tripped and fell on her right side hitting her leg. Patient states that she has been having lower back tailbone pain for the past 2 days. She denies any other symptoms. She denies hitting her head injury to her neck. She denies nausea or vomiting dizziness shortness of breath. - Related Data Previous Rx's Medication Instructions Recorded Last Taken Type Promethazine [Phenergan] 25 mg PO Q6HR PRN #20 tab 04/03/19 Unknown Rx Promethazine [Phenergan] 25 mg ND Q6HR PRN #5 supp.rect 04/03/19 Unknown Rx Metoclopramide HCl [Reglan TAB] 10 mg PO TIDAC #30 tablet 04/09/19 Unknown Rx oxyCODONE /ACETAMINOPHEN [Percocet 1 tab PO Q6H PRN #10 tablet 04/09/19 Unknown Rx 5/325 mg] traMADoL [Ultram 50 MG tab] 50 mg PO Q6HR PRN #10 tablet 11/21/19 Unknown Rx Allergies Allergy/AdvReac Type Severity Reaction Status Date / Time Penicillins Allergy Severe Anaphylaxis Verified 11/21/19 10:23 Calcium Channel Blocking Allergy Unknown Unknown Verified 11/21/19 10:23 Agent Dilt nifedipine Allergy Unknown Unknown Verified 11/21/19 10:23 JOHN Inhibitors AdvReac Unknown Unknown Verified 11/21/19 10:23 Iodinated Contrast Media AdvReac Unknown Unknown Verified 11/21/19 10:23 ED Review of Systems ROS: Stated complaint: FALL INJURY/LOWER BACK/TAILBONE Other details as noted in HPI Comment: All other systems reviewed and negative ED Past Medical Hx - Past Medical History Hx Hypertension: Yes Hx Heart Attack/AMI: Yes (2010) Hx Congestive Heart Failure: No Hx Diabetes: No Hx Renal Disease: Yes Hx Arthritis: Yes Hx Asthma: Yes Hx COPD: Yes Hx HIV: No - Surgical History Hx Cholecystectomy: Yes (2011) Additional Surgical History: Stent x1 01/18, fistula left arm, gastric bypass 2013, - Social History Smoking Status: Never Smoker Substance Use Type: None - Medications Home Medications: Home Medications Medication Instructions Recorded Confirmed Last Taken Type Promethazine [Phenergan] 25 mg PO Q6HR PRN #20 tab 04/03/19 04/08/19 Unknown Rx Promethazine [Phenergan] 25 mg ND Q6HR PRN #5 supp.rect 04/03/19 04/08/19 Unknown Rx Metoclopramide HCl [Reglan TAB] 10 mg PO TIDAC #30 tablet 04/09/19 Unknown Rx oxyCODONE /ACETAMINOPHEN [Percocet 1 tab PO Q6H PRN #10 tablet 04/09/19 Unknown Rx 5/325 mg] traMADoL [Ultram 50 MG tab] 50 mg PO Q6HR PRN #10 tablet 11/21/19 Unknown Rx ED Physical Exam - General Limitations: No Limitations General appearance: alert, in no apparent distress - Head Head exam: Present: atraumatic, normocephalic - Eye Eye exam: Present: normal appearance - ENT ENT exam: Present: mucous membranes moist - Neck Neck exam: Present: normal inspection - Respiratory Respiratory exam: Present: normal lung sounds bilaterally. Absent: respiratory distress - Cardiovascular Cardiovascular Exam: Present: regular rate, normal rhythm. Absent: systolic murmur, diastolic murmur, rubs, gallop - GI/Abdominal GI/Abdominal exam: Present: soft, normal bowel sounds - Extremities Exam Extremities exam: Present: normal inspection, full ROM, normal capillary refill. Absent: tenderness, joint swelling - Back Exam Back exam: Present: normal inspection, full ROM, tenderness (To lower latissimus dorsi muscles of the back. Mild tenderness to palpation of the sacral iliac region, no swelling, no bruising noted). Absent: CVA tenderness (R), CVA tenderness (L) - Neurological Exam Neurological exam: Present: alert, oriented X3 - Psychiatric Psychiatric exam: Present: normal affect, normal mood - Skin Skin exam: Present: warm, dry, intact, normal color. Absent: rash ED Course Vital Signs 11/21/19 11/21/19 11/21/19 10:33 12:33 12:54 Temperature 98.6 F Pulse Rate 84 Respiratory 16 16 16 Rate Blood Pressure 165/86 O2 Sat by Pulse 98 Oximetry ED Medical Decision Making - Radiology Data Radiology results: report reviewed Fluoro Time In Minutes: SACRUM AND COCCYX, 3 VIEWS INDICATION: pain. COMPARISON: None. IMPRESSION: Limited exam. No obvious sacral or coccyx defect is identified. The SI joints are symmetric. Degenerative changes are noted in the lower lumbar spine. If further evaluation is needed, CT is recommended. Signer Name: Bernardo Harrington Jr, MD Signed: 11/21/2019 11:58 AM Workstation Name: [id number] Transcribed By: TTR Dictated By: BERNARDO HARRINGTON JR, MD Electronically Authenticated By: BERNARDO HARRINGTON JR, MD Signed Date/Time: 11/21/19 1158 - Medical Decision Making 59-year-old female presents to ED with lower back pain status post trip and fall in her home ED course: Patient received Toradol and Flexeril in ED. X-ray shows no acute fracture or dislocation, see report above Vital signs are normal patient is in no acute distress Discussed with patient follow-up with primary care physician. Discussed the patient and take medications as prescribed. Patient has no neurological deficit. Patient is alert and oriented 3 and understands all instructions given. Discussed drowsiness effect of tramadol makes her drowsy and not to operate machinery while taking tramadol Critical care attestation.: If time is entered above; I have spent that time in minutes in the direct care of this critically ill patient, excluding procedure time. ED Disposition Clinical Impression: Fall, Tail bone pain, Low back pain Disposition: DC-01 TO HOME OR SELFCARE Is pt being admited?: No Does the pt Need Aspirin: No Condition: Stable Instructions: Low Back Strain (ED), Lumbar Radiculopathy (ED), Fall Prevention (ED) Additional Instructions: Make sure to follow up with the primary care physician as discussed. Take all your medications as you've been prescribed. If you have any worsening symptoms or develop new symptoms please return to ED immediately. Prescriptions: traMADoL [Ultram 50 MG tab] 50 mg PO Q6HR PRN #10 tablet PRN Reason: Headache Referrals: EMMETT MOON MD [Referring] - 3-5 Days [facility] [Provider Group] - 3-5 Days [facility] [Outside] - 3-5 Days [facility] [Outside] - 3-5 Days Forms: Work/School Release Form(ED) Time of Disposition: 12:25
--- NOTE | 2019-11-21 12:03 | XRay Report ---
SACRUM AND COCCYX, 3 VIEWS INDICATION: pain. COMPARISON: None. IMPRESSION: Limited exam. No obvious sacral or coccyx defect is identified. The SI joints are symmet marcin. Degenerative changes are noted in the lower lumbar spine. If further evaluation is needed, CT i s recommended. Signer Name: Bernardo Renee Jr, MD Signed: 11/21/2019 11:58 AM Workstation Name: [id number]
[2019-11-21] MEDS: IBUPROFEN 800 MG TAB PO ONE (12:33)
== END 2019-11-21 12:56 | disposition home or self-care (01) ==
LOC: ED 10:19
DX: M53.3 Sacrococcygeal disorders, not elsewhere classified (principal); M54.5 Low back pain; I10 Essential (primary) hypertension; I25.2 Old myocardial infarction; M19.90 Unspecified osteoarthritis, unspecified site; J45.909 Unspecified asthma, uncomplicated; Z90.49 Acquired absence of other specified parts of digestive tract; Z98.890 Other specified postprocedural states; Z79.899 Other long term (current) drug therapy; Z88.0 Allergy status to penicillin; Z88.8 Allergy status to other drugs, medicaments and biological substances; Z91.048 Other nonmedicinal substance allergy status; W18.39XA Other fall on same level, initial encounter; Y93.89 Activity, other specified; Y92.090 Kitchen in other non-institutional residence as the place of occurrence of the external cause; Y99.8 Other external cause status
CPT/HCPCS: 72220

== ENCOUNTER 2020-07-20 06:14 | Day surgery (SDC) | payer MEDICARE ==
[~2020-07-20 06:14] MED LIST: MIDAZOLAM 2 MG/2 ML INJ IV NR; SODIUM CHLORIDE 0.9% 1000 ML 1,000 ML IV SCH; fentaNYL 100 MCG/2 ML INJ IV PRN
[2020-07-20] MEDS ORDERED: SODIUM CHLORIDE 0.9% 500 ML 500 ML ONE (06:45)
[2020-07-20] MEDS ORDERED: BUPIVACAINE/PF (0.5%) 5 MG/1 ML 30 ML VIAL INFILTRATI ONE ×2 (06:45→08:49)
[2020-07-20] MEDS ORDERED: SODIUM CHLORIDE 0.9% 250ML 250 ML ONE (06:45)
[2020-07-20] MEDS ORDERED: HEPARIN 10,000 UNITS/10 ML VIAL ONE (06:45)
[2020-07-20 07:16] LABS: Hematocrit 30.6 % (30.3-42.9); Hemoglobin 10.2 gm/dl (10.1-14.3); Mean Corpuscular HGB Conc 33 % (30-34); Mean Corpuscular Volume 96 fl (79-97); Platelet Count 171 K/mm3 (140-440); Red Blood Count 3.18 M/mm3 (3.65-5.03)
[2020-07-20] MEDS ORDERED: BUPIVACAINE-EPINEPHRINE/PF 0.25%-1:200,000 (10 ML) VIAL INFILTRATI ONE (07:29)
[2020-07-20] MEDS ORDERED: dexAMETHasone 4 MG/ML VIAL ONE (07:29)
[2020-07-20 07:35] LABS: Calcium 9.1 mg/dL (8.4-10.2)
[2020-07-20] MEDS ORDERED: HEPARIN 5,000 UNIT/1 ML VIAL ONE (07:39)
--- NOTE | 2020-07-20 07:41 | Anesthesia Consultation ---
Anesthesia Consult and Med Hx Date of service: 07/20/20 - Airway Anesthetic Teeth Evaluation: Poor ROM Head & Neck: Adequate Mental/Hyoid Distance: Adequate Mallampati Class: Class II Intubation Access Assessment: Probably Good - Pulmonary Exam CTA: Yes - Cardiac Exam Cardiac Exam: RRR - Pre-Operative Health Status ASA Pre-Surgery Classification: ASA3 Proposed Anesthetic Plan: MAC Nerve Block: Supraclavicular - Pulmonary Hx Smoking: No Hx Respiratory Symptoms: No COPD: Yes (chronic bronchitis, last albuterol use 1 month ago) Home Oxygen Therapy: No - Cardiovascular System Hx Hypertension: Yes Hx Coronary Artery Disease: Yes (stable 2 pillow orthopnea, approx 4 met exercise tolerance) Hx Heart Attack/AMI: Yes (2011; no nitroglycerine use since stent placement) Hx Percutaneous Transluminal Coronary Angioplasty (PTCA): Yes (stent 2011) Hx Cardia Arrhythmia: No Hx Pacemaker: No Hx Internal Defibrillator: No - Central Nervous System CVA: No - Gastrointestinal Hx Gastroesophageal Reflux Disease: Yes (controlled) - Endocrine Hx End Stage Renal Disease: Yes (last HD 07/19/20) Hx Liver Disease: No Hx Insulin Dependent Diabetes: No Hx Non-Insulin Dependent Diabetes: No - Hematic Hx Anemia: Yes - Other Systems Hx Alcohol Use: Yes (Occas) Hx Obesity: Yes (BMI 36) - Additional Comments Anesthesia Medical History Comments: No hx anesthetic complications. No signs/symptoms HF decompensation on exam.
--- NOTE | 2020-07-20 07:41 | Anesthesia Day of Surgery ---
Anesthesia Day of Surgery - Day of Surgery Patient Examined: Yes Patient H&P Reviewed: Yes Patient is NPO: Yes
[2020-07-20] MEDS ORDERED: propofoL 200 MG/20 ML VIAL IV ONE ×2 (07:46→09:08)
[2020-07-20] MEDS ORDERED: ONDANSETRON 4 MG/2 ML INJ ONE (07:46)
[2020-07-20] MEDS ORDERED: LIDOCAINE MPF (2%) 20 MG/1 ML VIAL 5 ML ONE (07:46)
[2020-07-20] MEDS ORDERED: HYDROmorphone 1 MG/1 ML INJ ONE (08:17)
[2020-07-20] MEDS ORDERED: KETAMINE/STERILE WATER 50 MG/ML SYRINGE ONE (08:17)
[2020-07-20] MEDS ORDERED: LIDOCAINE 1%/EPINEPHRINE 1:100,000 VIAL (20 ML) INFILTRATI ONE ×3 (08:30→09:40)
[2020-07-20] MEDS ORDERED: HEPARIN 10,000 UNITS/10 ML VIAL IV ONE ×2 (08:49→10:02)
[2020-07-20] MEDS ORDERED: HEPARIN 5,000 UNIT/1 ML VIAL SUB-Q ONE ×2 (08:49)
[2020-07-20] MEDS ORDERED: GLYCOPYRROLATE 0.4 MG/2 ML INJ ONE (09:31)
[2020-07-20] MEDS ORDERED: rifAMPin 600 MG VIAL ONE (09:39)
[2020-07-20] MEDS ORDERED: SODIUM CHLORIDE P/F VIAL 10 ML 10 ML ONE (09:40)
[2020-07-20] MEDS ORDERED: rifAMPin 600 MG VIAL IV ONE (10:01)
--- NOTE | 2020-07-20 10:02 | Fluoroscopy Report ---
Chest single view INDICATION: Dyspnea IMPRESSION: Right perm catheter terminates near the right atrium. Fluoroscopy time: 121 seconds. Fluoroscopic images: 1. Signer Name: Giancarlo Maxwell MD Signed: 07/20/2020 9:57 AM Workstation Name: [id number]
[2020-07-20] MEDS ORDERED: HEPARIN 1,000 UNIT/1 ML VIAL IV ONE (10:03)
--- NOTE | 2020-07-20 11:26 | Short Stay Summary ---
Short Stay Documentation Date of service: 07/20/20 Narrative H&P: See H&P - History H&P: obtained from office - Allergies and Medications Current Medications: Allergies Penicillins Allergy (Severe, Verified 07/19/20 15:20) Anaphylaxis Calcium Channel Blocking Agent Dilt Allergy (Unknown, Verified 07/19/20 15:20) Unknown nifedipine Allergy (Unknown, Verified 07/19/20 15:20) Unknown JOHN Inhibitors Adverse Reaction (Unknown, Verified 07/19/20 15:20) Unknown Iodinated Contrast Media Adverse Reaction (Unknown, Verified 07/19/20 15:20) Unknown Home Medications Medication Instructions Recorded Confirmed Last Taken Type Promethazine [Phenergan] 25 mg GA Q6HR PRN #5 supp.rect 04/03/19 07/20/20 06/29/20 09:00 Rx Metoclopramide HCl [Reglan TAB] 10 mg PO TIDAC #30 tablet 04/09/19 07/20/20 Unknown Rx Aspirin 81 mg PO DAILY 07/20/20 07/20/20 07/19/20 17:00 History Calcitriol 0.5 mcg PO BID 07/20/20 07/20/20 07/19/20 17:00 History Calcium Acetate 667 mg PO AC 07/20/20 07/20/20 07/19/20 17:00 History Cyclobenzaprine 10 mg PO BID PRN 07/20/20 07/20/20 Unknown History Montelukast 10 mg PO DAILY PRN 07/20/20 07/20/20 Unknown History Nitroglycerin 0.4 mg SUBLINGUAL PRN PRN 07/20/20 07/20/20 Unknown History Pantoprazole 40 mg PO DAILY 07/20/20 07/20/20 07/19/20 15:00 History Renvela 800 mg PO AC 07/20/20 07/20/20 07/19/20 17:00 History Rosuvastatin (Nf) 5 mg PO DAILY 07/20/20 07/20/20 07/19/20 09:00 History Sodium Bicarbonate 10 gm PO BID 07/20/20 07/20/20 07/18/20 17:00 History Symbicort 160-4.5 Mcg Inhaler 2 puff 07/20/20 07/17/20 09:00 History Vitamin D2 2,000 mg PO DAILY 10/07/20/20 07/16/20 09:00 History Zolpidem 5 mg PO HS 07/20/20 07/20/20 07/19/20 21:00 History hydrALAZINE 25 mg PO BID 07/20/20 07/20/20 07/19/20 09:00 History Active Medications Fentanyl (Sublimaze) 100 mcg IV ONCE PRN PRN Reason: sedation for nerve block Stop: 07/20/20 23:59 Last Admin: 07/20/20 07:46 Dose: 100 mcg Documented by: Sodium Chloride (Nacl 0.9% 1000 Ml) 1,000 mls @ 42 mls/hr IV DIRECT THERESE Stop: 07/20/20 23:59 Last Admin: 07/20/20 07:45 Dose: 42 mls/hr Documented by: Clindamycin HCl (Cleocin 900 Mg/50 Ml) 900 mg in 50 mls @ 100 mls/hr IV PREOP NR; Protocol Stop: 07/20/20 23:59 Midazolam HCl (Versed) 2 mg IV PREOP NR Stop: 07/20/20 23:59 Last Admin: 07/20/20 07:46 Dose: 2 mg Documented by: - Brief post op/procedure progress note Date of procedure: 07/20/20 Pre-op diagnosis: Complications of Dialysis Access Post-op diagnosis: same Procedure: 1. Ultrasound-Guided Access Right Internal Jugular Vein 2. Placement of 23 cm Bard Glidepath Permacath 3. Radiologic Supervision with Interpretation 4. Revision of Left Arm Arteriovenous Fistula With Excision of Pseudoaneurysms and Repair with Interposition 7 mm Bovine Artegraft Anesthesia: MAC, regional, local Surgeon: ZA AIKEN Estimated blood loss: 50-100ml Pathology: list (Left arm arteriovenous fistula pseudoaneurysms) Specimen disposition: other (Pathology) Condition: stable - Disposition Condition at discharge: Good Disposition: DC-01 TO HOME OR SELFCARE Short Stay Discharge Plan Activity: other (No heavy lifting with left arm for 2 weeks. Okay to use right internal jugular permacath for dialysis.) Wound: open to air, keep clean and dry, other (Okay to wash daily left arm wound with soap and water but do not soak in water for 2 weeks.) Follow up with: ZA AIKEN MD [Staff Physician] - 14 Days Prescriptions: HYDROcodone/APAP 7.5-325 [[place] 7.5/325] 1 each PO Q6HR PRN #40 tablet PRN Reason: Pain
--- NOTE | 2020-07-20 11:37 | Operative Report ---
Operative Report Operative Report: Date of procedure: 07/20/2020 Pre-operative diagnosis: Complications of Dialysis Access Post-operative diagnosis: Same Procedure(s): 1. Ultrasound-Guided Access Right Internal Vein 2. Placement of 23 cm GlidePath Permacath 3. Radiologic Supervision with Interpretation 4. Revision of Left Arm Arteriovenous Fistula With Excision of Pseudoaneurysms and Repair with Interposition 7 mm Bovine Artegraft Surgeon: Myles Brown MD Maternity Nurse: None Anesthesia: Regional/MAC/Local EBL: 100 mL Counts: Correct Complications: None Condition: Stable Findings: Successful placement of right IJ permacath with distal tip in the right atrium and no evidence of pneumothorax at the completion of the case. Left arm arteriovenous access with palpable thrill at the completion of the case. Specimen: None Indication: The patient is a 60-year-old female with a history of end-stage renal disease who is currently on hemodialysis through a left arm arteriovenous fistula. She has 3 large pseudoaneurysms in the cannulation area that have thinning of the skin and require revision. She is in need of a permacath insertion in addition to to revision, to allow for continued hemodialysis. She has been given the risk, benefits, and alternative procedures and consented to the procedure. Description of Procedure: Prior to being transported to the operating room the patient had a regional block performed of her left arm. Once this was adequately achieved the patient was transported to the operating room and adequately sedated. She then had a right neck and chest prepped and draped in normal sterile fashion. Ultrasound was used to identify the right internal jugular vein and the overlying skin and soft tissue was anesthetized with lidocaine. An 11 blade was used to make a small stab incision and a 21-gauge micropuncture needle was used with ultrasound guidance to enter the right internal jugular vein. A 0.018 micropuncture wire was advanced into the inferior vena cava under fluoroscopy and after removing the needle the micropuncture sheath was advanced into the internal jugular vein by Seldinger technique. The wire and inner cannula were removed and a 0.035 J- wire was advanced into the inferior vena cava under direct fluoroscopic visualization. The tract was serially dilated up to a 16 Green[place]ic peel-away safety sheath. An exit site on the chest was then chosen and the presumed tunnel was anesthetized with lidocaine. A small stab incision was made on the chest and then the permacath was connected to the tunneler and pulled antegrade through the tunnel. The J-wire and inner cannula from the SafeSheath were removed and the catheter was inserted into the safe sheath. The safe sheath was then peeled away while advancing the catheter. The catheter was positioned under fluoroscopy with the distal tip in the right atrium. Once in adequate position, both ports were aspirated, flushed, and primed with the appropriate amount of heparin. The neck incision was then closed with 4-0 Monocryl in interrupted subcuticular fashion and dressed with Dermabond. The permacath was secured in place with a 2-0 Ethilon in interrupted fashion and dressed with a sterile dressing. Final fluoroscopy demonstrated the catheter was in adequate position with the distal tip in the right atrium and no evidence of pneumothorax. After completing the placement of the permacath the sterile field was broken and the patient's left arm was prepped and draped in normal sterile fashion. A longitudinal incision was made on the medial aspect of the fistula, extending from the pseudoaneurysm near the venous outflow towards the pseudoaneurysm near the arterial inflow. Sharp dissection was used to carry the dissection down to the normal caliber of the fistula near the arterial inflow. This was dissected circumferentially and then controlled with a vessel loop. Sharp dissection was then used to dissect down to the venous outflow of the fistula, at the normal caliber of the fistula and this was dissected circumferentially and controlled with a vessel loop. Curved Mayos were then used to dissect the pseudoaneurysms free from the surrounding soft tissue and skin and wants to have been dissected free cautery was used to achieve hemostasis within the wound bed. A Lalitha-Wick tunneler was then used to tunnel from the arterial inflow of the fistula towards the venous outflow the fistula, lateral to the incision and then a 7 mm Bovine Artegraft was pulled through the tunnel. Heparinized saline was infused into the graft to ensure that it was not kinked or twisted. Once this was done the patient was systemically heparinized with 3000 units of heparin IV and then both the arterial inflow of the fistula and the venous outflow of the fistula were clamped with angled DeBakey clamps. The pseudoaneurysmal portion of the fistula was then transected and passed off the specimen. The arterial inflow of the graft was then beveled and an end-to-end anastomosis was created using two 6-0 Prolene's in running fashion. After the anastomosis was completed the venous outflow of the graft was clamped and the clamp was removed from the arterial inflow of the fistula to check for hemostasis at the anastomosis. Once hemostasis was confirmed the arterial inflow was reclamped and the graft was flushed with heparinized saline. The graft was then cut to length and beveled. An end-to-end anastomosis between the venous outflow of the graft and the venous outflow of the fistula was created using two 5-0 Prolene's in running fashion. Prior to completing the anastomosis the venous outflow of the fistula was flashed and reclamped and the arterial inflow of the fistula was flashed and reclamped. The fistula was then flushed with heparinized saline. The anastomosis was completed and all clamps were removed to allow flow through the graft which had a palpable thrill. Hemostasis within the wound was achieved with a combination of Quick Clot and cautery. Once hemostasis was achieved the redundant skin at the previous areas of pseudoaneurysm was resected. The wound was then anesthetized with Marcaine and closed in 2 layers using 3-0 Vicryl running fashion in the deep dermal layer and 4-0 Monocryl in running fashion the subcuticular layer and then dressed with Dermabond. The patient tolerated the procedure well. All sponge, needle, and instrument counts were correct. The patient was transported to the recovery area in stable condition.
--- NOTE | 2020-07-20 13:54 | Post Anesthesia Evaluation ---
- Post Anesthesia Evaluation Patient Participated: Yes Airway Patent: Yes Stable Respiratory Function: Yes Nausea/Vomiting: No Temp > 96.8F: Yes Pain Manageable: Yes Adequeate Hydration: Yes Anesthesia Complications: No
[2020-07-20 14:05] VITALS: BP 116/74
== END 2020-07-20 06:15 | disposition home or self-care (01) ==
LOC: OR 06:14
PROVIDERS: ATTEND Surgery Vascular Surgery
DX: T82.898A Other specified complication of vascular prosthetic devices, implants and grafts, initial encounter (principal); I13.2 Hypertensive heart and chronic kidney disease with heart failure and with stage 5 chronic kidney disease, or end stage renal disease; N18.6 End stage renal disease; I50.9 Heart failure, unspecified; J44.9 Chronic obstructive pulmonary disease, unspecified; I25.10 Atherosclerotic heart disease of native coronary artery without angina pectoris; K21.9 Gastro-esophageal reflux disease without esophagitis; E66.9 Obesity, unspecified; M19.90 Unspecified osteoarthritis, unspecified site; Z98.891 History of uterine scar from previous surgery; Z98.890 Other specified postprocedural states; Z72.89 Other problems related to lifestyle; Z88.8 Allergy status to other drugs, medicaments and biological substances; Z91.041 Radiographic dye allergy status; Z79.899 Other long term (current) drug therapy; Z79.82 Long term (current) use of aspirin; Z68.36 Body mass index [BMI] 36.0-36.9, adult; Z82.49 Family history of ischemic heart disease and other diseases of the circulatory system; Y92.89 Other specified places as the place of occurrence of the external cause; Y82.8 Other medical devices associated with adverse incidents
CPT/HCPCS: 36415; 36558; 36832; 76937; 77001; 80048; 85027; 88304; C1750; C1768; C1769; J1100; J1170; J1644; J2250; J2405; J2704; J3010; J3490; J7030; J7040; J7050; 64450

== ENCOUNTER 2020-10-04 10:39 | Observation (INO) | payer MEDICARE ==
--- NOTE | 2020-10-04 13:16 | Emergency Department Report ---
ED Neuro Deficit HPI - General Chief Complaint: Altered Mental Status Stated Complaint: ALTERED MENTAL STATUS Time Seen by Provider: 10/04/20 13:04 Source: EMS Mode of arrival: Stretcher Limitations: No Limitations, Altered Mental Status - History of Present Illness Initial Comments: CC: altered mental status HPI: This is a 60 yo female with hx of ESRD on hemodialysis, arthritis, congestive heart failure, COPD, myocardial infarction, hypertension who presents with altered mental status after receiving hemodialysis. After completion of treatment patient appeared confused. Patient unable to name the date. She was unable to name but she did recall her social security number. EMS did not see any physical neurological deficits. Patient denies pain. She is obviously slow to respond. Bradycardia also detected by EMS. -: Sudden, This morning (Just prior to arrival) Location: speech History of same: No Place: other (Hemodialysis) Severity: moderate Quality: other (Confusion) Improves With: none Worsens With: none On Anticoagulants: No (According to EMR) Context: sudden onset Associated Symptoms: denies other symptoms (Patient denies any symptoms or concerns) - Related Data Home Medications: Home Medications Medication Instructions Recorded Confirmed Last Taken Aspirin 81 mg PO DAILY 07/20/20 07/20/20 07/19/20 17:00 Calcitriol 0.5 mcg PO BID 07/20/20 07/20/20 07/19/20 17:00 Calcium Acetate 667 mg PO AC 07/20/20 07/20/20 07/19/20 17:00 Cyclobenzaprine 10 mg PO BID PRN 07/20/20 07/20/20 Unknown Montelukast 10 mg PO DAILY PRN 07/20/20 07/20/20 Unknown Nitroglycerin 0.4 mg SUBLINGUAL PRN PRN 07/20/20 07/20/20 Unknown Pantoprazole 40 mg PO DAILY 07/20/20 07/20/20 07/19/20 15:00 Renvela 800 mg PO AC 07/20/20 07/20/20 07/19/20 17:00 Rosuvastatin (Nf) 5 mg PO DAILY 07/20/20 07/20/20 07/19/20 09:00 Sodium Bicarbonate 10 gm PO BID 07/20/20 07/20/20 07/18/20 17:00 Symbicort 160-4.5 Mcg Inhaler 2 puff 07/20/20 07/17/20 09:00 Vitamin D2 2,000 mg PO DAILY 07/20/20 07/20/20 07/16/20 09:00 Zolpidem 5 mg PO HS 07/20/20 07/20/20 07/19/20 21:00 hydrALAZINE 25 mg PO BID 07/20/20 07/20/20 07/19/20 09:00 Previous Rx's Medication Instructions Recorded Last Taken Type Promethazine [Phenergan SUPPOS] 25 mg MS Q6HR PRN #5 supp.rect 04/03/19 06/29/20 09:00 Rx Metoclopramide HCl [Reglan TAB] 10 mg PO TIDAC #30 tablet 04/09/19 Unknown Rx HYDROcodone/APAP 7.5-325 [[place] 1 each PO Q6HR PRN #40 tablet 07/20/20 Unknown Rx 7.5/325] Allergies/Adverse Reactions: Allergies Allergy/AdvReac Type Severity Reaction Status Date / Time Penicillins Allergy Severe Anaphylaxis Verified 07/19/20 15:20 Calcium Channel Blocking Allergy Unknown Unknown Verified 07/19/20 15:20 Agent Dilt nifedipine Allergy Unknown Unknown Verified 07/19/20 15:20 JOHN Inhibitors AdvReac Unknown Unknown Verified 07/19/20 15:20 Iodinated Contrast Media AdvReac Unknown Unknown Verified 07/19/20 15:20 ED Review of Systems ROS: Stated complaint: ALTERED MENTAL STATUS Other details as noted in HPI Comment: All other systems reviewed and negative Constitutional: denies: fever, malaise Respiratory: denies: cough, shortness of breath Cardiovascular: denies: chest pain Gastrointestinal: denies: abdominal pain, nausea, vomiting Neurological: confusion. denies: headache, weakness, numbness, paresthesias ED Past Medical Hx - Past Medical History Previous Medical History?: Yes Hx Hypertension: Yes Hx Heart Attack/AMI: Yes (2011; no nitroglycerine use since stent placement) Hx Congestive Heart Failure: Yes Hx GERD: Yes Hx Liver Disease: No Hx Renal Disease: Yes Hx Arthritis: Yes Hx COPD: Yes (chronic bronchitis, last albuterol use 1 month ago) - Surgical History Past Surgical History?: Yes Hx Pacemaker: No Hx Internal Defibrillator: No Hx Cholecystectomy: Yes (2011) Additional Surgical History: Stent x1 01/18, fistula left arm, gastric bypass 2013, - Social History Smoking Status: Never Smoker - Medications Home Medications: Home Medications Medication Instructions Recorded Confirmed Last Taken Type Promethazine [Phenergan SUPPOS] 25 mg MS Q6HR PRN #5 supp.rect 04/03/19 07/20/20 06/29/20 09:00 Rx Metoclopramide HCl [Reglan TAB] 10 mg PO TIDAC #30 tablet 04/09/19 07/20/20 Unknown Rx Aspirin 81 mg PO DAILY 07/20/20 07/20/20 07/19/20 17:00 History Calcitriol 0.5 mcg PO BID 07/20/20 07/20/20 07/19/20 17:00 History Calcium Acetate 667 mg PO AC 07/20/20 07/20/20 07/19/20 17:00 History Cyclobenzaprine 10 mg PO BID PRN 07/20/20 07/20/20 Unknown History HYDROcodone/APAP 7.5-325 [[place] 1 each PO Q6HR PRN #40 tablet 07/20/20 Unknown Rx 7.5/325] Montelukast 10 mg PO DAILY PRN 07/20/20 07/20/20 Unknown History Nitroglycerin 0.4 mg SUBLINGUAL PRN PRN 07/20/20 07/20/20 Unknown History Pantoprazole 40 mg PO DAILY 07/20/20 07/20/20 07/19/20 15:00 History Renvela 800 mg PO AC 07/20/20 07/20/20 07/19/20 17:00 History Rosuvastatin (Nf) 5 mg PO DAILY 07/20/20 07/20/20 07/19/20 09:00 History Sodium Bicarbonate 10 gm PO BID 07/20/20 07/20/20 07/18/20 17:00 History Symbicort 160-4.5 Mcg Inhaler 2 puff 07/20/20 07/17/20 09:00 History Vitamin D2 2,000 mg PO DAILY 07/20/20 07/20/20 07/16/20 09:00 History Zolpidem 5 mg PO HS 07/20/20 07/20/20 07/19/20 21:00 History hydrALAZINE 25 mg PO BID 07/20/20 07/20/20 07/19/20 09:00 History ED Neuro Physical Exam - General Limitations: No Limitations, Altered Mental Status General appearance: alert, in no apparent distress, other (Slow to respond obviously confused) Suspected Stroke: Yes - Head Head exam: Present: atraumatic, normocephalic - Eye Eye exam: Present: normal appearance - ENT ENT exam: Present: mucous membranes moist - Neck Neck exam: Present: normal inspection, full ROM - Respiratory Respiratory exam: Present: normal lung sounds bilaterally. Absent: respiratory distress, wheezes, rales, rhonchi - Cardiovascular Cardiovascular Exam: Present: normal rhythm, bradycardia, normal heart sounds. Absent: systolic murmur, diastolic murmur, rubs, gallop - GI/Abdominal GI/Abdominal exam: Present: soft, normal bowel sounds. Absent: distended, tenderness, guarding, rebound - Extremities Exam Extremities exam: Present: normal inspection - Back Exam Back exam: Present: normal inspection - Neurological Exam Neurological exam: Present: alert, oriented X3 - NIHSS Assessment Interval: Baseline 1a. Level of Consciousness: arousable/minor stimuli 1b. LOC Questions: answers 1 question correctly 1c. LOC Commands: performs 1 task correctly 2. Best Gaze: normal 3. Visual: no visual loss 4. Facial Palsy: minor paralysis 5b. Motor Arm Right: no drift 5a. Motor Arm Left: no drift 6a. Motor Leg Left: no drift 6b. Motor Leg Right: no drift 7. Limb Ataxia: absent 8. Sensory: normal 9. Best Language: mild/moderate aphasia 10. Dysarthria: normal 11. Extinction/Inattention: no abnormality Total Score: 5 Stroke Severity: Moderate Stroke - Psychiatric Psychiatric exam: Present: normal affect, normal mood - Skin Skin exam: Present: warm, dry, intact, normal color. Absent: rash ED Course Vital Signs 10/04/20 12:42 Temperature 97.7 F Pulse Rate 46 L Respiratory 15 Rate Blood Pressure 149/64 [Right] O2 Sat by Pulse 100 Oximetry - Lab Data Result diagrams: 10/04/20 13:12 10/04/20 13:12 Lab Results 10/04/20 10/04/20 10/04/20 Range/Units 13:12 13:12 13:12 WBC 7.4 (4.5-11.0) K/mm3 RBC 3.48 L (3.65-5.03) M/mm3 Hgb 10.8 (10.1-14.3) gm/dl Hct 32.2 (30.3-42.9) % MCV 93 (79-97) fl MCH 31 (28-32) pg MCHC 34 (30-34) % RDW 14.2 (13.2-15.2) % Plt Count 189 (140-440) K/mm3 Lymph % (Auto) 16.6 (13.4-35.0) % [place] % (Auto) 8.8 H (0.0-7.3) % Eos % (Auto) 5.7 H (0.0-4.3) % Baso % (Auto) 0.9 (0.0-1.8) % Lymph # (Auto) 1.2 (1.2-5.4) K/mm3 [place] # (Auto) 0.7 (0.0-0.8) K/mm3 Eos # (Auto) 0.4 (0.0-0.4) K/mm3 Baso # (Auto) 0.1 (0.0-0.1) K/mm3 Seg Neutrophils % 68.0 (40.0-70.0) % Seg Neutrophils # 5.1 (1.8-7.7) K/mm3 Sodium 131 L (137-145) mmol/L Potassium 3.7 (3.6-5.0) mmol/L Chloride 95.5 L (98-107) mmol/L Carbon Dioxide 24 (22-30) mmol/L Anion Gap 15 mmol/L BUN 42 H (7-17) mg/dL Creatinine 6.5 H (0.6-1.2) mg/dL Estimated GFR 8 ml/min BUN/Creatinine Ratio 6 % Glucose 99 (65-100) mg/dL POC Glucose (70-105) mg/dL Lactic Acid 0.80 (0.7-2.0) mmol/L Calcium 10.4 H (8.4-10.2) mg/dL Total Bilirubin 0.30 (0.1-1.2) mg/dL AST 13 (5-40) units/L ALT 12 (7-56) units/L Alkaline Phosphatase 83 (35-129) units/L Ammonia (25-60) umol/L Total Protein 7.2 (6.3-8.2) g/dL Albumin 3.7 L (3.9-5) g/dL Albumin/Globulin Ratio 1.1 % TSH (0.270-4.200) mlU/mL Salicylates (2.8-20.0) mg/dL Acetaminophen (10.0-30.0) ug/mL Plasma/Serum Alcohol (0-0.07) % 10/04/20 10/04/20 10/04/20 Range/Units 13:12 13:12 13:12 WBC (4.5-11.0) K/mm3 RBC (3.65-5.03) M/mm3 Hgb (10.1-14.3) gm/dl Hct (30.3-42.9) % MCV (79-97) fl MCH (28-32) pg MCHC (30-34) % RDW (13.2-15.2) % Plt Count (140-440) K/mm3 Lymph % (Auto) (13.4-35.0) % [place] % (Auto) (0.0-7.3) % Eos % (Auto) (0.0-4.3) % Baso % (Auto) (0.0-1.8) % Lymph # (Auto) (1.2-5.4) K/mm3 [place] # (Auto) (0.0-0.8) K/mm3 Eos # (Auto) (0.0-0.4) K/mm3 Baso # (Auto) (0.0-0.1) K/mm3 Seg Neutrophils % (40.0-70.0) % Seg Neutrophils # (1.8-7.7) K/mm3 Sodium (137-145) mmol/L Potassium (3.6-5.0) mmol/L Chloride (98-107) mmol/L Carbon Dioxide (22-30) mmol/L Anion Gap mmol/L BUN (7-17) mg/dL Creatinine (0.6-1.2) mg/dL Estimated GFR ml/min BUN/Creatinine Ratio % Glucose (65-100) mg/dL POC Glucose (70-105) mg/dL Lactic Acid (0.7-2.0) mmol/L Calcium (8.4-10.2) mg/dL Total Bilirubin (0.1-1.2) mg/dL AST (5-40) units/L ALT (7-56) units/L Alkaline Phosphatase (35-129) units/L Ammonia 13.0 L (25-60) umol/L Total Protein (6.3-8.2) g/dL Albumin (3.9-5) g/dL Albumin/Globulin Ratio % TSH 0.878 (0.270-4.200) mlU/mL Salicylates < 0.3 L (2.8-20.0) mg/dL Acetaminophen (10.0-30.0) ug/mL Plasma/Serum Alcohol (0-0.07) % 10/04/20 10/04/20 10/04/20 Range/Units 13:12 13:12 13:17 WBC (4.5-11.0) K/mm3 RBC (3.65-5.03) M/mm3 Hgb (10.1-14.3) gm/dl Hct (30.3-42.9) % MCV (79-97) fl MCH (28-32) pg MCHC (30-34) % RDW (13.2-15.2) % Plt Count (140-440) K/mm3 Lymph % (Auto) (13.4-35.0) % [place] % (Auto) (0.0-7.3) % Eos % (Auto) (0.0-4.3) % Baso % (Auto) (0.0-1.8) % Lymph # (Auto) (1.2-5.4) K/mm3 [place] # (Auto) (0.0-0.8) K/mm3 Eos # (Auto) (0.0-0.4) K/mm3 Baso # (Auto) (0.0-0.1) K/mm3 Seg Neutrophils % (40.0-70.0) % Seg Neutrophils # (1.8-7.7) K/mm3 Sodium (137-145) mmol/L Potassium (3.6-5.0) mmol/L Chloride (98-107) mmol/L Carbon Dioxide (22-30) mmol/L Anion Gap mmol/L BUN (7-17) mg/dL Creatinine (0.6-1.2) mg/dL Estimated GFR ml/min BUN/Creatinine Ratio % Glucose (65-100) mg/dL POC Glucose 50 L (70-105) mg/dL Lactic Acid (0.7-2.0) mmol/L Calcium (8.4-10.2) mg/dL Total Bilirubin (0.1-1.2) mg/dL AST (5-40) units/L ALT (7-56) units/L Alkaline Phosphatase (35-129) units/L Ammonia (25-60) umol/L Total Protein (6.3-8.2) g/dL Albumin (3.9-5) g/dL Albumin/Globulin Ratio % TSH (0.270-4.200) mlU/mL Salicylates (2.8-20.0) mg/dL Acetaminophen 5.0 L (10.0-30.0) ug/mL Plasma/Serum Alcohol < 0.01 (0-0.07) % 10/04/20 Range/Units 13:54 WBC (4.5-11.0) K/mm3 RBC (3.65-5.03) M/mm3 Hgb (10.1-14.3) gm/dl Hct (30.3-42.9) % MCV (79-97) fl MCH (28-32) pg MCHC (30-34) % RDW (13.2-15.2) % Plt Count (140-440) K/mm3 Lymph % (Auto) (13.4-35.0) % [place] % (Auto) (0.0-7.3) % Eos % (Auto) (0.0-4.3) % Baso % (Auto) (0.0-1.8) % Lymph # (Auto) (1.2-5.4) K/mm3 [place] # (Auto) (0.0-0.8) K/mm3 Eos # (Auto) (0.0-0.4) K/mm3 Baso # (Auto) (0.0-0.1) K/mm3 Seg Neutrophils % (40.0-70.0) % Seg Neutrophils # (1.8-7.7) K/mm3 Sodium (137-145) mmol/L Potassium (3.6-5.0) mmol/L Chloride (98-107) mmol/L Carbon Dioxide (22-30) mmol/L Anion Gap mmol/L BUN (7-17) mg/dL Creatinine (0.6-1.2) mg/dL Estimated GFR ml/min BUN/Creatinine Ratio % Glucose (65-100) mg/dL POC Glucose 86 (70-105) mg/dL Lactic Acid (0.7-2.0) mmol/L Calcium (8.4-10.2) mg/dL Total Bilirubin (0.1-1.2) mg/dL AST (5-40) units/L ALT (7-56) units/L Alkaline Phosphatase (35-129) units/L Ammonia (25-60) umol/L Total Protein (6.3-8.2) g/dL Albumin (3.9-5) g/dL Albumin/Globulin Ratio % TSH (0.270-4.200) mlU/mL Salicylates (2.8-20.0) mg/dL Acetaminophen (10.0-30.0) ug/mL Plasma/Serum Alcohol (0-0.07) % - EKG Data -: EKG Interpreted by De EKG shows normal: sinus rhythm, axis, intervals, QRS complexes, ST-T waves Rate: bradycardia 10/04/20 14:20 EKG obtained 1414 EKG interpreted by nh Sinus bradycardia rate 53 bpm normal axis normal intervals no ST-T signs of ischemia - Radiology Data Radiology results: report reviewed - Medical Decision Making 1.Clinical impression TIA: On my initial exam patient answered questions incorrectly including month year. She had difficulty TV finding her words. She also had partial facial droop. After evaluation by teleneurologist, Dr. Lopez did not detect any neurological deficits. According to Dr. Lopez teleneurologist patient is not a candidate for alteplase thrombolytic therapy. 2. Asymptomatic bradycardia: Normotensive, patient denies any symptoms, EKG reveals heart rate to be 53 bpm, EKG obtained on 0 04/07/2019 revealed sinus bradycardia 57 bpm - Thrombolytic Inclusion/Exclusion Thrombolytic Exclusion Criteria: Onset of Symptoms Unknown Thrombolytic Inclusion Criteria: Glucose of 50-400mg/dl Critical Care Time: Yes Critical care time in (mins) excluding proc time.: 40 Critical care attestation.: If time is entered above; I have spent that time in minutes in the direct care of this critically ill patient, excluding procedure time. 40 minutes of critical care time excluding procedures were used in the care of t he patient. I came immediately to the bedside upon patient's arrival to emergency department. I obtained history from EMS at the bedside. I discussed treatment plan with the nursing team members. I reviewed electronic record. I initiated code stroke once I was able to perform a full exam. Patient required multiple interventions and reassessments. ED Disposition Clinical Impression: TIA (transient ischemic attack), Bradycardia, sinus Disposition: [id number] OP ADMIT IP TO THIS HOSP Is pt being admited?: Yes Does the pt Need Aspirin: No Condition: Stable
[2020-10-04 13:35] LABS: Basophils # (Auto) 0.1 K/mm3 (0.0-0.1); Basophils % (Auto) 0.9 % (0.0-1.8); Eosinophils # (Auto) 0.4 K/mm3 (0.0-0.4); Eosinophils % (Auto) 5.7 % (0.0-4.3); Hematocrit 32.2 % (30.3-42.9); Hemoglobin 10.8 gm/dl (10.1-14.3); Lymphocytes # (Auto) 1.2 K/mm3 (1.2-5.4); Lymphocytes % (Auto) 16.6 % (13.4-35.0); Mean Corpuscular HGB Conc 34 % (30-34); Mean Corpuscular Volume 93 fl (79-97); Monocytes # (Auto) 0.7 K/mm3 (0.0-0.8); Monocytes % (Auto) 8.8 % (0.0-7.3); Platelet Count 189 K/mm3 (140-440); Red Blood Count 3.48 M/mm3 (3.65-5.03); Red Cell Distribution Width 14.2 % (13.2-15.2)
--- NOTE | 2020-10-04 13:37 | Consultation ---
History of Present Illness History of present illness: [facility] Date of Service: 10/04/2020 13:13:29 Impression: R41.82 - AMS (Altered Mental Status) Comments/Sign-Out: 60 y/o woman with h/o CHF, ESRD, CAD who presents to the ED with AMS when she showed up to her dialysis appointment. Metrics: Last Known Well: Unknown [facility] Notification Time: 10/04/2020 13:13:07 Arrival Time: 10/04/2020 10:39:00 Stamp Time: 10/04/2020 13:13:29 Time First Login Attempt: 10/04/2020 13:19:31 Symptoms: AMS NIHSS Start Assessment Time: 10/04/2020 13:29:28 Patient is not a candidate for Alteplase/Activase. Patient was not deemed candidate for Alteplase/Activase thrombolytics because of NIHSS 0. Unknown last known well. . CT head was reviewed. Clinical Presentation is not Suggestive of Large Vessel Occlusive Disease ED Physician notified of diagnostic impression and management plan on 10/04/2020 13:34:43 Our recommendations are outlined below. Recommendations: Activate Stroke Protocol Admission/Order Set Stroke/Telemetry Floor Neuro Checks Bedside Swallow Eval DVT Prophylaxis IV Fluids, Normal Saline Head of Bed 30 Degrees Euglycemia and Avoid Hyperthermia (PRN Acetaminophen) ASA Covid testing Routine Consultation with Inhouse Neurology for Follow up Care Sign Out: Discussed with Emergency Department Provider History of Present Illness: Patient is a 60 year old Female. Patient was brought by EMS for symptoms of AMS 60 y/o woman with h/o CHF, ESRD, CAD who presents to the ED with AMS when she showed up to her dialysis appointment. Patient reportedly missed her previous dialysis appointment. Patient was reportedly "acting fidgety" when she got to dialysis. Emergent telestroke consult requested. CT brain reviewed and case discussed with ED attending at bedside. Patient is hypoglycemic. Unknown last known well. Patient denies being a diabetic. She said she didn't have breakfast this morning. She says "I feel fine." Examination: BP(149/64), Pulse(46), Blood Glucose(50) 1A: Level of Consciousness - Alert; keenly responsive + 0 1B: Ask Month and Age - Both Questions Right + 0 1C: Blink Eyes & Squeeze Hands - Performs Both Tasks + 0 2: Test Horizontal Extraocular Movements - Normal + 0 3: Test Visual [place] - No Visual Loss + 0 4: Test Facial Palsy (Use Grimace if Obtunded) - Normal symmetry + 0 5A: Test Left Arm Motor Drift - No Drift for 10 Seconds + 0 5B: Test Right Arm Motor Drift - No Drift for 10 Seconds + 0 6A: Test Left Leg Motor Drift - No Drift for 5 Seconds + 0 6B: Test Right Leg Motor Drift - No Drift for 5 Seconds + 0 7: Test Limb Ataxia (FNF/Heel-Whipple) - No Ataxia + 0 8: Test Sensation - Normal; No sensory loss + 0 9: Test Language/Aphasia - Normal; No aphasia + 0 10: Test Dysarthria - Normal + 0 11: Test Extinction/Inattention - No abnormality + 0 NIHSS Score: 0 Patient/Family was informed the Neurology Consult would happen via TeleHealth consult by way of interactive audio and video telecommunications and consented to receiving care in this manner. Due to the immediate potential for life-threatening deterioration due to underlying acute neurologic illness, I spent 20 minutes providing critical care. This time includes time for face to face visit via telemedicine, review of medical records, imaging studies and discussion of findings with providers, the patient and/or family. Dr Bahman Lopez [facility] Case [id number] Medications and Allergies Allergies Allergy/AdvReac Type Severity Reaction Status Date / Time Penicillins Allergy Severe Anaphylaxis Verified 07/19/20 15:20 Calcium Channel Blocking Allergy Unknown Unknown Verified 07/19/20 15:20 Agent Dilt nifedipine Allergy Unknown Unknown Verified 07/19/20 15:20 JOHN Inhibitors AdvReac Unknown Unknown Verified 07/19/20 15:20 Iodinated Contrast Media AdvReac Unknown Unknown Verified 07/19/20 15:20 Home Medications Medication Instructions Recorded Confirmed Last Taken Type Promethazine [Phenergan SUPPOS] 25 mg NV Q6HR PRN #5 supp.rect 04/03/19 07/20/20 06/29/20 09:00 Rx Metoclopramide HCl [Reglan TAB] 10 mg PO TIDAC #30 tablet 04/09/19 07/20/20 Unknown Rx Aspirin 81 mg PO DAILY 07/20/20 07/20/20 07/19/20 17:00 History Calcitriol 0.5 mcg PO BID 07/20/20 07/20/20 07/19/20 17:00 History Calcium Acetate 667 mg PO AC 07/20/20 07/20/20 07/19/20 17:00 History Cyclobenzaprine 10 mg PO BID PRN 07/20/20 07/20/20 Unknown History HYDROcodone/APAP 7.5-325 [[place] 1 each PO Q6HR PRN #40 tablet 07/20/20 Unknown Rx 7.5/325] Montelukast 10 mg PO DAILY PRN 07/20/20 07/20/20 Unknown History Nitroglycerin 0.4 mg SUBLINGUAL PRN PRN 07/20/20 07/20/20 Unknown History Pantoprazole 40 mg PO DAILY 07/20/20 07/20/20 07/19/20 15:00 History Renvela 800 mg PO AC 07/20/20 07/20/20 07/19/20 17:00 History Rosuvastatin (Nf) 5 mg PO DAILY 07/20/20 07/20/20 07/19/20 09:00 History Sodium Bicarbonate 10 gm PO BID 07/20/20 07/20/20 07/18/20 17:00 History Symbicort 160-4.5 Mcg Inhaler 2 puff 07/20/20 07/17/20 09:00 History Vitamin D2 2,000 mg PO DAILY 07/20/20 07/20/20 07/16/20 09:00 History Zolpidem 5 mg PO HS 07/20/20 07/20/20 07/19/20 21:00 History hydrALAZINE 25 mg PO BID 07/20/20 07/20/20 07/19/20 09:00 History Physical Examination - Vital Signs Vital Signs: Vital Signs Temp Pulse Resp BP Pulse Ox 97.7 F 46 L 15 149/64 100 10/04/20 12:42 10/04/20 12:42 10/04/20 12:42 10/04/20 12:42 10/04/20 12:42 Results - Laboratory Findings CBC and BMP: 10/04/20 13:12 Abnormal Lab Findings: Abnormal Labs 10/04/20 10/04/20 13:12 13:17 RBC 3.48 L [place] % (Auto) 8.8 H Eos % (Auto) 5.7 H POC Glucose 50 L
--- NOTE | 2020-10-04 13:40 | Cat Scan Report ---
CT HEAD WITHOUT CONTRAST INDICATION / CLINICAL INFORMATION: Altered Mental Status. TECHNIQUE: Axial imaging performed from the skull apex through the skull base without the use of cont rast. Sagittal and coronal reformatted images. All CT scans at this location are performed using CT dose reduction for ALARA by means of automated exposure control. COMPARISON: None available. FINDINGS: CEREBRAL PARENCHYMA: No acute parenchymal abnormality. Mild hypoattenuation throughout the white paul er is identified consistent with chronic microangiopathy. HEMORRHAGE: None. EXTRA-AXIAL SPACES: Normal in size and morphology for the patient's age. VENTRICULAR SYSTEM: Normal in size and morphology for the patient's age. MIDLINE SHIFT OR HERNIATION: None. CEREBELLUM / BRAINSTEM: No significant abnormality. CALVARIUM: Mild hyperostosis is suspected in both frontal bones. There are 2 subtle lucent lesions in the left frontal bone measuring up to 1 cm. The etiology of these are unclear. Metastatic lesions or multiple myeloma is difficult to exclude. ORBITS: Normal as visualized. PARANASAL SINUSES / MASTOID AIR CELLS: Normal as visualized. SOFT TISSUES of HEAD: No significant abnormality. ADDITIONAL FINDINGS: None. IMPRESSION: No acute intracranial abnormality. Mild chronic white matter changes as described. Subtle lucent lesions in the left frontal bone as described. Correlate with the patient's history. CODE STROKE: Time of Communication 1333 hours EST Licensed Practitioner Receiving Report: Dr. Kaba A read back was performed. Signer Name: Bernardo Renee Jr, MD Signed: 10/04/2020 1:35 PM Workstation Name: [id number]
[2020-10-04 13:57] LABS: Albumin 3.7 g/dL (3.9-5); Calcium 10.4 mg/dL (8.4-10.2)
--- NOTE | 2020-10-04 14:51 | XRay Report ---
CHEST 1 VIEW INDICATION: Altered Mental Status. COMPARISON: 04/08/2019 FINDINGS: Support devices: None. Heart: Within normal limits. Lungs/Pleura: No acute air space or interstitial disease. Additional findings: None. IMPRESSION: No acute findings. Signer Name: Bernardo Renee Jr, MD Signed: 10/04/2020 2:46 PM Workstation Name: [id number]
--- NOTE | 2020-10-04 15:00 | History and Physical Report ---
History of Present Illness Chief complaint: She got weak all of a sudden History of present illness: 60 YO Female with ESRD on HD (M,W,F), Obesity S/P Gastric Bypass, Noncompliant with low carbohydrate diet, CAD S/P Stent Placement, HTN, Obesity, MT, OA presents to ED for evaluation. Pt states is confused and provides minimal history. Patient taken from EMS staff, ED staff. Patient presented to outpatient dialysis center for routine scheduled dialysis today. Patient developed acute onset weakness and confusion at the end of dialysis which persisted shortly after dialysis. EMS was notified and upon arrival the patient was found to be in distress and subsequently transported to [facility] for further care and evaluation. The patient was seen and evaluated in the emergency department. All lab and imaging studies reviewed. The patient was found to have a focal neurologic deficit. A code stroke was called. Teleneurology consulted in ED. Patient found to have symptoms consistent with CVA, as well as dialysis disequilibrium syndrome. Patient placed in observation status and initiated on stroke protocol. No further history is obtainable. Patient is unable to provide detailed history due to confusion. But patient has a positive gag reflex and is able to maintain her airway without difficulty. Prior admission on 04/07/2019 reviewed. All medication listed at time of admission has been reconciled. Advanced care planning conducted in ED. Past History Past Medical History: acute MT, arthritis, CAD, GERD, hypertension, other (See HPI) Past Surgical History: cholecystectomy, bowel surgery, Other (AV fistula, cardiac stent placement) Social history: single. denies: smoking, alcohol abuse, prescription drug abuse Family history: diabetes, hypertension Medications and Allergies Allergies Allergy/AdvReac Type Severity Reaction Status Date / Time Penicillins Allergy Severe Anaphylaxis Verified 07/19/20 15:20 Calcium Channel Blocking Allergy Unknown Unknown Verified 07/19/20 15:20 Agent Dilt nifedipine Allergy Unknown Unknown Verified 07/19/20 15:20 JOHN Inhibitors AdvReac Unknown Unknown Verified 07/19/20 15:20 Iodinated Contrast Media AdvReac Unknown Unknown Verified 07/19/20 15:20 Home Medications Medication Instructions Recorded Confirmed Last Taken Type Promethazine [Phenergan SUPPOS] 25 mg MA Q6HR PRN #5 supp.rect 04/03/19 10/04/20 06/29/20 09:00 Rx Metoclopramide HCl [Reglan TAB] 10 mg PO TIDAC #30 tablet 04/09/19 10/04/20 Unknown Rx Aspirin 81 mg PO DAILY 07/20/20 10/04/20 07/19/20 17:00 History Calcitriol 0.5 mcg PO BID 07/20/20 10/04/20 07/19/20 17:00 History Calcium Acetate 667 mg PO AC 07/20/20 10/04/20 07/19/20 17:00 History Cyclobenzaprine 10 mg PO BID PRN 07/20/20 10/04/20 Unknown History HYDROcodone/APAP 7.5-325 [[place] 1 each PO Q6HR PRN #40 tablet 07/20/20 10/04/20 Unknown Rx 7.5/325] Montelukast 10 mg PO DAILY PRN 07/20/20 10/04/20 Unknown History Nitroglycerin 0.4 mg SUBLINGUAL PRN PRN 07/20/20 10/04/20 Unknown History Pantoprazole 40 mg PO DAILY 07/20/20 10/04/20 07/19/20 15:00 History Renvela 800 mg PO AC 07/20/20 10/04/20 07/19/20 17:00 History Rosuvastatin (Nf) 5 mg PO DAILY 07/20/20 10/04/20 07/19/20 09:00 History Sodium Bicarbonate 10 gm PO BID 07/20/20 10/04/20 07/18/20 17:00 History Symbicort 160-4.5 Mcg Inhaler 2 puff INHALATION BID PRN 07/20/20 10/04/20 07/17/20 09:00 History Vitamin D2 2,000 mg PO DAILY 07/20/20 10/04/20 07/16/20 09:00 History Zolpidem 5 mg PO HS 07/20/20 10/04/20 07/19/20 21:00 History hydrALAZINE 25 mg PO BID 07/20/20 10/04/20 07/19/20 09:00 History Review of Systems ROS unobtainable: due to mental status Exam - Constitutional Vitals: Temp Pulse Resp BP Pulse Ox 97.7 F 46 L 15 149/64 100 10/04/20 12:42 10/04/20 12:42 10/04/20 12:42 10/04/20 12:42 10/04/20 12:42 General appearance: Present: mild distress, obese - EENT Eyes: Present: PERRL ENT: hearing intact, clear oral mucosa, hearing decreased - Neck Neck: Present: supple, normal ROM - Respiratory Respiratory effort: normal Respiratory: bilateral: CTA - Cardiovascular Heart Sounds: Present: S1 & S2. Absent: rub, click - Extremities Extremities: pulses symmetrical, No edema Peripheral Pulses: within normal limits - Abdominal General gastrointestinal: Present: soft, non-tender, non-distended, normal bowel sounds Female genitourinary: Present: normal - Integumentary Integumentary: Present: clear, warm, dry - Musculoskeletal Musculoskeletal: generalized weakness - Psychiatric Psychiatric: no appropriate mood/affect, no intact judgment & insight, no memory intact - Neurologic Neurologic: CNII-XII intact, moves all extremities, no gait normal Results - Labs CBC & Chem 7: 10/04/20 13:12 10/04/20 13:12 Labs: Abnormal lab results 10/04/20 10/04/20 10/04/20 Range/Units 13:12 13:12 13:12 RBC 3.48 L (3.65-5.03) M/mm3 [place] % (Auto) 8.8 H (0.0-7.3) % Eos % (Auto) 5.7 H (0.0-4.3) % Sodium 131 L (137-145) mmol/L Chloride 95.5 L (98-107) mmol/L BUN 42 H (7-17) mg/dL Creatinine 6.5 H (0.6-1.2) mg/dL POC Glucose (70-105) mg/dL Calcium 10.4 H (8.4-10.2) mg/dL Ammonia 13.0 L (25-60) umol/L Albumin 3.7 L (3.9-5) g/dL Salicylates (2.8-20.0) mg/dL Acetaminophen (10.0-30.0) ug/mL 10/04/20 10/04/20 10/04/20 Range/Units 13:12 13:12 13:17 RBC (3.65-5.03) M/mm3 [place] % (Auto) (0.0-7.3) % Eos % (Auto) (0.0-4.3) % Sodium (137-145) mmol/L Chloride (98-107) mmol/L BUN (7-17) mg/dL Creatinine (0.6-1.2) mg/dL POC Glucose 50 L (70-105) mg/dL Calcium (8.4-10.2) mg/dL Ammonia (25-60) umol/L Albumin (3.9-5) g/dL Salicylates < 0.3 L (2.8-20.0) mg/dL Acetaminophen 5.0 L (10.0-30.0) ug/mL Assessment and Plan - Patient Problems (1) CVA (cerebral vascular accident) Current Visit: Yes Status: Acute Qualifiers: CVA mechanism: unspecified Qualified Code(s): I63.9 - Cerebral infarction, unspecified Plan to address problem: CVA protocol: CT head, neuro check, seizure precaution, aspiration precautions, physical therapy consulted, Occupational Therapy consulted, speech therapy consulted, antiplatelet therapy, lipid panel, statin therapy, teleneurology consulted in ED. echocardiogram, carotid Doppler. (2) Dialysis disequilibrium syndrome Current Visit: Yes Status: Acute Plan to address problem: Supportive care, nephrology team consulted, dialysis as per renal team, monitor blood pressure every shift, continue supportive care. (3) ESRD on dialysis Current Visit: No Status: Acute Plan to address problem: Nephrology team consulted in ED, strict I's/O, monitor urine output every shift, daily weight, avoid nephrotoxic agents (4) HTN (hypertension) Current Visit: No Status: Acute Qualifiers: Hypertension type: essential hypertension Qualified Code(s): I10 - Essential (primary) hypertension Plan to address problem: Monitor blood pressure every shift, continue medical management (5) DVT prophylaxis Current Visit: No Status: Acute Plan to address problem: SCD to bilateral lower extremities while in bed, prophylactic anticoagulation (6) Advance care planning Current Visit: Yes Status: Acute Plan to address problem: Disease education conducted, patient is full code, care plan discussed, prognosis discussed, +30 minutes
[2020-10-04] MEDS ORDERED: ACETAMINOPHEN 325 MG TAB PO PRN (15:16)
[2020-10-04] MEDS ORDERED: METOCLOPRAMIDE 10 MG TAB PO PRN (15:16)
[2020-10-04] MEDS ORDERED: MAGNESIUM HYDROXIDE (MOM) ORAL LIQD UDC PO PRN (15:16)
[2020-10-04] MEDS ORDERED: PROMETHAZINE 25 MG RECT SUPP PR PRN ×2 (15:16→18:26)
[2020-10-04] MEDS ORDERED: ONDANSETRON 4 MG/2 ML INJ IV PRN (15:16)
[2020-10-04] MEDS ORDERED: NON-FORMULARY EACH (Cyclobenzaprine 10 MG) PO PRN (18:26)
[2020-10-04] MEDS ORDERED: NON-FORMULARY EACH (Symbicort 160-4.5 Mcg Inhaler 2 PUFF) INHALATION PRN (18:26)
[2020-10-04] MEDS ORDERED: NON-FORMULARY EACH (Montelukast 10 MG) PO PRN (18:26)
[2020-10-04] MEDS ORDERED: CYCLOBENZAPRINE 10 MG TAB PO PRN (20:38)
[2020-10-04] MEDS ORDERED: MONTELUKAST 10 MG TAB PO PRN (20:49)
[2020-10-04] MEDS: hydrALAZINE 25 MG TAB PO SCH (21:40)
[2020-10-04] MEDS: CALCITRIOL 0.5 MCG CAP PO SCH ×2 (21:41→22:42)
[2020-10-04] MEDS: HEPARIN 5,000 UNIT/1 ML VIAL SUB-Q SCH (21:41)
[2020-10-04] MEDS ORDERED: NON-FORMULARY EACH (Hydralazine 25 MG) PO SCH (22:00)
[2020-10-04] MEDS ORDERED: CALCITRIOL 0.5 MCG PO SCH (22:00)
[2020-10-04] MEDS ORDERED: ZOLPIDEM 5 MG PO SCH (22:00)
[2020-10-04] MEDS ORDERED: SODIUM BICARBONATE 10 GM PO SCH (22:00)
[2020-10-04] MEDS ORDERED: ZOLPIDEM 5 MG TAB PO SCH (22:00)
[2020-10-04] MEDS: SODIUM BICARBONATE 650 MG TAB PO SCH (22:43)
[2020-10-05] MEDS ORDERED: CALCIUM ACETATE 667 MG CAP PO SCH (07:30)
[2020-10-05] MEDS ORDERED: RENVELA 800 MG PO SCH (07:30)
[2020-10-05] MEDS ORDERED: NON-FORMULARY EACH (Metoclopramide Hcl [Reglan Tab] 5 MG Tablet) PO SCH (07:30)
[2020-10-05] MEDS ORDERED: ARFORMOTEROL 15 MCG/2 ML NEBU IH SCH (08:00)
[2020-10-05] MEDS ORDERED: BUDESONIDE 0.5 MG/2 ML NEBU IH SCH (08:00)
--- NOTE | 2020-10-05 08:00 | Vascular Lab Report ---
Duplex carotid sonography with spectral analysis Indication: stroke Mild carotid atherosclerotic changes are seen. In the right internal carotid artery no significant velocity elevations are seen to suggest a hemodyn amically-significant stenosis. Peak systolic velocity of the right ICA is 102 cm/s. In the left internal carotid artery no significant velocity elevations are seen to suggest a hemodyna mically-significant stenosis. Peak systolic velocity of the left ICA is 88 cm/s. Vertebral flow is antegrade bilaterally. Incidental note is made of a complex 17 mm partially cystic nodule in the lower pole the right lobe o f the thyroid. Impression: 1. No evidence of hemodynamically-significant stenosis by NASCET-type criteria. 2. Right thyroid complex nodule. If this is not a known finding, dedicated thyroid ultrasound is sugg ammy. INCIDENTAL THYROID NODULE RECOMMENDATIONS Nonpalpable nodules detected on US or other anatomic imaging studies are termed incidentally discover ed nodules or incidentalomas. Nonpalpable nodules have the same risk of malignancy as palpable nodule s with the same size. Generally, only nodules >1 cm should be evaluated, since they have a greater po tential to be clinically significant cancers. (ALEXANDER, 2009). Follow up for incidental thyroid nodules <1 cm is not recommended. In patients <35 years with an incidental thyroid nodule detected on CT, MRI, or extrathyroidal ultras ound, dedicated thyroid ultrasound is recommended if the nodule is 1 cm, has no suspicious imaging fe atures, and if the patient has normal life expectancy. In patients 35 years with an incidental thyroid nodule detected on CT, MRI, or extrathyroidal ultraso und, dedicated thyroid ultrasound is recommended if the nodule is 1.5 cm, has no suspicious imaging f eatures, and if the patient has normal life expectancy. Signer Name: Riley Arriola MD Signed: 10/05/2020 7:56 AM Workstation Name: [id number]
[2020-10-05] MEDS: SEVELAMER CARBONATE 800 MG TAB PO SCH ×2 (08:21→11:17)
[2020-10-05 08:45] VITALS: BP 127/63
[2020-10-05] MEDS ORDERED: PANTOPRAZOLE 40 MG TAB PO SCH (10:00)
[2020-10-05] MEDS ORDERED: NON-FORMULARY EACH (Aspirin 81 MG) PO SCH (10:00)
[2020-10-05] MEDS ORDERED: NON-FORMULARY EACH (Rosuvastatin (Nf) 5 MG) PO SCH (10:00)
[2020-10-05] MEDS ORDERED: NON-FORMULARY EACH (Pantoprazole 40 MG) PO SCH (10:00)
[2020-10-05] MEDS ORDERED: ASPIRIN 81 MG TAB CHEW PO SCH (10:00)
[2020-10-05] MEDS ORDERED: CHOLECALCIFEROL (VIT D3) 1000 UNIT (25 mcg) TAB PO SCH (10:00)
--- NOTE | 2020-10-05 10:48 | Consultation ---
History of Present Illness - Reason for Consult Consult date: 10/05/20 end stage renal disease, accelerated hypertension Requesting physician: MIKKI DE LA O - History of Present Illness 60 YO Female with ESRD on HD (M,W,F), Obesity S/P Gastric Bypass, Noncompliant with low carbohydrate diet, CAD S/P Stent Placement, HTN, Obesity, [place], OA presents to ED for evaluation. Pt states is confused and provides minimal history. Patient taken from EMS staff, ED staff. Patient presented to outpatient dialysis center for routine scheduled dialysis today. Patient developed acute onset weakness and confusion at the end of dialysis which persisted shortly after dialysis. EMS was notified and upon arrival the patient was found to be in distress and subsequently transported to [facility] for further care and evaluation. The patient was seen and evaluated in the emergency department. All lab and imaging studies reviewed. The patient was found to have a focal neurologic deficit. A code stroke was called. Teleneurology consulted in ED. Patient found to have symptoms consistent with CVA, as well as dialysis disequilibrium syndrome. Patient placed in observation status and initiated on stroke protocol. No further history is obtainable. Patient is unable to provide detailed history due to confusion. But patient has a positive gag reflex and is able to maintain her airway without difficulty. Prior admission on 04/07/2019 reviewed. All medication listed at time of admission has been reconciled. Advanced care planning conducted in ED. Past History Past Medical History: acute [place], arthritis, CAD, GERD, hypertension, other (See HPI) Past Surgical History: cholecystectomy, bowel surgery, Other (AV fistula, cardiac stent placement) Social history: single. denies: smoking, alcohol abuse, prescription drug abuse Family history: diabetes, hypertension Medications and Allergies Allergies Allergy/AdvReac Type Severity Reaction Status Date / Time Penicillins Allergy Severe Anaphylaxis Verified 07/19/20 15:20 Calcium Channel Blocking Allergy Unknown Unknown Verified 07/19/20 15:20 Agent Dilt nifedipine Allergy Unknown Unknown Verified 07/19/20 15:20 JOHN Inhibitors AdvReac Unknown Unknown Verified 07/19/20 15:20 Iodinated Contrast Media AdvReac Unknown Unknown Verified 07/19/20 15:20 Home Medications Medication Instructions Recorded Confirmed Last Taken Type Promethazine [Phenergan SUPPOS] 25 mg DE Q6HR PRN #5 supp.rect 04/03/19 10/04/20 06/29/20 09:00 Rx Metoclopramide HCl [Reglan TAB] 10 mg PO TIDAC #30 tablet 04/09/19 10/04/20 Unknown Rx Aspirin 81 mg PO DAILY 07/20/20 10/04/20 07/19/20 17:00 History Calcitriol 0.5 mcg PO BID 07/20/20 10/04/20 07/19/20 17:00 History Calcium Acetate 667 mg PO AC 07/20/20 10/04/20 07/19/20 17:00 History Cyclobenzaprine 10 mg PO BID PRN 07/20/20 10/04/20 Unknown History HYDROcodone/APAP 7.5-325 [[place] 1 each PO Q6HR PRN #40 tablet 07/20/20 10/04/20 Unknown Rx 7.5/325] Montelukast 10 mg PO DAILY PRN 07/20/20 10/04/20 Unknown History Nitroglycerin 0.4 mg SUBLINGUAL PRN PRN 07/20/20 10/04/20 Unknown History Pantoprazole 40 mg PO DAILY 07/20/20 10/04/20 07/19/20 15:00 History Renvela 800 mg PO AC 07/20/20 10/04/20 07/19/20 17:00 History Rosuvastatin (Nf) 5 mg PO DAILY 07/20/20 10/04/20 07/19/20 09:00 History Sodium Bicarbonate 10 gm PO BID 07/20/20 10/04/20 07/18/20 17:00 History Symbicort 160-4.5 Mcg Inhaler 2 puff INHALATION BID PRN 07/20/20 10/04/20 09:00 History Vitamin D2 2,000 mg PO DAILY 07/20/20 10/04/20 07/16/20 09:00 History Zolpidem 5 mg PO HS 07/20/20 10/04/20 07/19/20 21:00 History hydrALAZINE 25 mg PO BID 07/20/20 10/04/20 07/19/20 09:00 History Review of Systems ROS unobtainable: due to mental status Past History Past Medical History: acute [place], arthritis, CAD, GERD, hypertension, other (See HPI) Past Surgical History: cholecystectomy, bowel surgery, Other (AV fistula, cardiac stent placement) Social history: single. denies: smoking, alcohol abuse, prescription drug abuse Family history: diabetes, hypertension Medications and Allergies Allergies Allergy/AdvReac Type Severity Reaction Status Date / Time Penicillins Allergy Severe Anaphylaxis Verified 07/19/20 15:20 Calcium Channel Blocking Allergy Unknown Unknown Verified 07/19/20 15:20 Agent Dilt nifedipine Allergy Unknown Unknown Verified 07/19/20 15:20 JOHN Inhibitors AdvReac Unknown Unknown Verified 07/19/20 15:20 Iodinated Contrast Media AdvReac Unknown Unknown Verified 07/19/20 15:20 Home Medications Medication Instructions Recorded Confirmed Last Taken Type Promethazine [Phenergan SUPPOS] 25 mg DE Q6HR PRN #5 supp.rect 04/03/19 10/04/20 06/29/20 09:00 Rx Metoclopramide HCl [Reglan TAB] 10 mg PO TIDAC #30 tablet 04/09/19 10/04/20 Unknown Rx Aspirin 81 mg PO DAILY 07/20/20 10/04/20 07/19/20 17:00 History Calcitriol 0.5 mcg PO BID 07/20/20 10/04/20 07/19/20 17:00 History Calcium Acetate 667 mg PO AC 07/20/20 10/04/20 07/19/20 17:00 History Cyclobenzaprine 10 mg PO BID PRN 07/20/20 10/04/20 Unknown History HYDROcodone/APAP 7.5-325 [[place] 1 each PO Q6HR PRN #40 tablet 07/20/20 10/04/20 Unknown Rx 7.5/325] Montelukast 10 mg PO DAILY PRN 07/20/20 10/04/20 Unknown History Nitroglycerin 0.4 mg SUBLINGUAL PRN PRN 07/20/20 10/04/20 Unknown History Pantoprazole 40 mg PO DAILY 07/20/20 10/04/20 07/19/20 15:00 History Renvela 800 mg PO AC 07/20/20 10/04/20 07/19/20 17:00 History Rosuvastatin (Nf) 5 mg PO DAILY 07/20/20 10/04/20 07/19/20 09:00 History Sodium Bicarbonate 10 gm PO BID 07/20/20 10/04/20 07/18/20 17:00 History Symbicort 160-4.5 Mcg Inhaler 2 puff INHALATION BID PRN 07/20/20 10/04/20 07/17/20 09:00 History Vitamin D2 2,000 mg PO DAILY 07/20/20 10/04/20 07/16/20 09:00 History Zolpidem 5 mg PO HS 07/20/20 10/04/20 07/19/20 21:00 History hydrALAZINE 25 mg PO BID 07/20/20 10/04/20 07/19/20 09:00 History Active Meds: Active Medications Acetaminophen (Acetaminophen 325 Mg Tab) 650 mg PO Q4H PRN PRN Reason: Pain, Mild (1-3) Arformoterol Tartrate (Arformoterol 15 Mcg/2 Ml Nebu) 15 mcg IH Q12HRT [facility] Last Admin: 10/05/20 08:06 Dose: 15 mcg Documented by: Aspirin (Aspirin 81 Mg Tab Chew) 81 mg PO QDAY [facility] Atorvastatin Calcium (Atorvastatin 40 Mg Tab) 40 mg PO QHS [facility] Last Admin: 10/04/20 21:40 Dose: 40 mg Documented by: Atorvastatin Calcium (Atorvastatin 10 Mg Tab) 10 mg PO QHS [facility] Last Admin: 10/04/20 21:41 Dose: Not Given Documented by: Bisacodyl (Bisacodyl 10 Mg Rect Supp) 10 mg DE QDAY PRN PRN Reason: Constipation Budesonide (Budesonide 0.5 Mg/2 Ml Nebu) 0.5 mg IH Q12HRT [facility] Last Admin: 10/05/20 08:06 Dose: 0.5 mg Documented by: Calcitriol (Calcitriol 0.5 Mcg Cap) 0.5 mcg PO BID [facility] Last Admin: 10/04/20 21:41 Dose: Not Given Documented by: Calcitriol (Calcitriol 0.5 Mcg Cap) 0.5 mcg PO BID [facility] Last Admin: 10/04/20 22:42 Dose: 0.5 mcg Documented by: Cholecalciferol (Cholecalciferol (Vit D3) 1000 Unit (25 Mcg) Tab) 2,000 unit PO DAILY [facility] Cyclobenzaprine HCl (Cyclobenzaprine 10 Mg Tab) 10 mg PO BID PRN PRN Reason: Muscle Spasm Heparin Sodium (Porcine) (Heparin 5,000 Unit/1 Ml Vial) 5,000 unit SUB-Q Q12HR [facility] Last Admin: 10/04/20 21:41 Dose: 5,000 unit Documented by: Hydralazine HCl (Hydralazine 25 Mg Tab) 25 mg PO BID [facility] Last Admin: 10/04/20 21:40 Dose: 25 mg Documented by: Magnesium Hydroxide (Magnesium Hydroxide (Mom) Oral Liqd Udc) 30 ml PO Q4H PRN PRN Reason: Constipation Metoclopramide HCl (Metoclopramide 10 Mg Tab) 10 mg PO Q6H PRN PRN Reason: Nausea And Vomiting Montelukast Sodium (Montelukast 10 Mg Tab) 10 mg PO QHS PRN PRN Reason: SHORTNESS OF BREATH Ondansetron HCl (Ondansetron 4 Mg/2 Ml Inj) 4 mg IV Q8H PRN PRN Reason: Nausea And Vomiting Pantoprazole Sodium (Pantoprazole 40 Mg Tab) 40 mg PO DAILY [facility] Promethazine HCl (Promethazine 25 Mg Rect Supp) 25 mg DE Q6HR PRN PRN Reason: Vomiting Sevelamer Carbonate (Sevelamer Carbonate 800 Mg Tab) 800 mg PO [facility] Sodium Bicarbonate (Sodium Bicarbonate 650 Mg Tab) 650 mg PO BID [facility] Last Admin: 10/04/20 22:43 Dose: Not Given Documented by: Sodium Chloride (Sodium Chloride 0.9% 10 Ml Flush Syringe) 10 ml IV PRN PRN PRN Reason: LINE FLUSH Zolpidem Tartrate (Zolpidem 5 Mg Tab) 5 mg PO QHS [facility] Last Admin: 10/04/20 21:41 Dose: 5 mg Documented by: Exam - Vital Signs Vital signs: Vital Signs Temp Pulse Resp BP Pulse Ox 97.7 F 46 L 15 149/64 100 10/04/20 12:42 10/04/20 12:42 10/04/20 12:42 10/04/20 12:42 10/04/20 12:42 - Physical Exam Narrative exam: General appearance: Present: mild distress, obese - EENT Eyes: Present: PERRL ENT: hearing intact, clear oral mucosa, hearing decreased - Neck Neck: Present: supple, normal ROM - Respiratory Respiratory effort: normal Respiratory: bilateral: CTA - Cardiovascular Heart Sounds: Present: S1 & S2. Absent: rub, click - Extremities Extremities: pulses symmetrical, No edema Peripheral Pulses: within normal limits - Abdominal General gastrointestinal: Present: soft, non-tender, non-distended, normal bowel sounds Female genitourinary: Present: normal - Integumentary Integumentary: Present: clear, warm, dry - Musculoskeletal Musculoskeletal: generalized weakness - Psychiatric Psychiatric: no appropriate mood/affect, no intact judgment & insight, no memory intact - Neurologic Neurologic: CNII-XII intact, moves all extremities, no gait normal Results - Lab Results 10/04/20 13:12 10/04/20 13:12 Most recent lab results Calcium 10.4 mg/dL (8.4-10.2) H 10/04/20 13:12 Assessment and Plan Impression: * End stage renal disease on hemodialysis MWF * Hyperkalemia * Abdominal pain/nausea/vomiting * AMS * Hypotension * Bradycardia * Anemia secondary to ESRD * Secondary hyperparathyroidism w/ hx of parathyroidectomy * Hypocalcemia s/p parathyroidectomy Plan: * Continue outpatient HD MWF schedule * hold bp meds * ct noted, * does not have dialysis disequilibrium syndrome * may be due to hypotension with hd * rec cards consult for bradycardia * UF as tolerated * Epogen TIW prn * Renal diet
[2020-10-05] MEDS: CALCITRIOL 0.5 MCG CAP PO SCH ×2 (11:16→11:21)
[2020-10-05] MEDS: hydrALAZINE 25 MG TAB PO SCH (11:16)
[2020-10-05] MEDS: SODIUM BICARBONATE 650 MG TAB PO SCH (11:16)
[2020-10-05] MEDS: HEPARIN 5,000 UNIT/1 ML VIAL SUB-Q SCH (11:17)
--- NOTE | 2020-10-05 16:46 | Discharge Summary ---
Providers - Providers Date of Admission: 10/04/20 15:16 Date of discharge: 10/05/20 Attending physician: BRAEDEN SETHI 10/04/20 15:16 Occupational Therapy Evaluate and Treat [CONS] Routine Comment: Reason For Exam: Neuro deficits Physical Therapy Evaluation and Treat [CONS] Routine Comment: Reason For Exam: Neuro deficits 10/04/20 15:17 Speech Therapy Evaluation and Treat [CONS] Routine Reason For Exam: swallow eval 10/04/20 15:19 Consult to Physician [CONS] Routine Comment: Consulting Provider: ALY CARTWRIGHT Physician Instructions: Reason For Exam: esrd Primary care physician: [employer] Hospitalization Condition: Stable Hospital course: 60 YO Female with ESRD on HD (M,W,F), Obesity S/P Gastric Bypass, Noncompliant with low carbohydrate diet, CAD S/P Stent Placement, HTN, Obesity, [place], OA presents to ED for evaluation. Pt states is confused and provides minimal history. Patient taken from EMS staff, ED staff. Patient presented to outpatient dialysis center for routine scheduled dialysis today. Patient developed acute onset weakness and confusion at the end of dialysis which persisted shortly after dialysis. EMS was notified and upon arrival the patient was found to be in distress and subsequently transported to [facility] for further care and evaluation. The patient was seen and evaluated in the emergency department. All lab and imaging studies reviewed. The patient was found to have a focal neurologic deficit. A code stroke was called. Teleneurology consulted in ED. Patient found to have symptoms consistent with CVA, as well as dialysis disequilibrium syndrome. Patient placed in observation status and initiated on stroke protocol. No further history is obtainable. Patient was unable to provide detailed history due to confusion. October 05, 2020 Patient alert and oriented Patient moving all 4 extremities Able to walk 5/5 power in all 4 extremities No evidence of any cerebrovascular accident Patient had echocardiogram results of which are pending Assessment and plan (1) CVA (cerebral vascular accident) CVA unlikely CVA work-up (2) Dialysis disequilibrium syndrome Current Visit: Yes Status: Acute Plan to address problem: Admitting diagnoses more supportive dialysis disequilibrium which involved confusion and difficulty in giving history Patient today alert and oriented (3) ESRD on dialysis Current Visit: No Status: Acute Plan to address problem: Patient had hemodialysis (4) HTN (hypertension) Current Visit: No Status: Acute Qualifiers: Hypertension type: essential hypertension Qualified Code(s): I10 - E ssential (primary) hypertension Plan to address problem: Blood pressure well controlled (5) DVT prophylaxis Current Visit: No Status: Acute Plan to address problem: SCD to bilateral lower extremities while in bed, prophylactic anticoagulation Disposition: DC-01 TO HOME OR SELFCARE Time spent for discharge: 35 minutes - Discharge Diagnoses (1) Dialysis disequilibrium syndrome Status: Acute (2) HTN (hypertension) Status: Chronic Qualifiers: Hypertension type: essential hypertension Qualified Code(s): I10 - Essential (primary) hypertension Comment: Continue antihypertensives (3) Hyperkalemia Status: Acute Comment: Repeat BMP pending Patient to be discharged home if potassium level is normal (4) CVA (cerebral vascular accident) Status: Acute Qualifiers: CVA mechanism: unspecified Qualified Code(s): I63.9 - Cerebral infarction, unspecified Comment: Ruled out Core Measure Documentation - Palliative Care Palliative Care/ Comfort Measures: Not Applicable - Core Measures Any of the following diagnoses?: none Exam - Constitutional Vitals: Temp Pulse Resp BP Pulse Ox 98.4 F 53 L 18 127/63 100 10/05/20 08:45 10/05/20 08:45 10/05/20 08:45 10/05/20 08:45 10/05/20 08:45 General appearance: Present: no acute distress, well-nourished - EENT Eyes: Present: PERRL ENT: hearing intact, clear oral mucosa - Neck Neck: Present: supple, normal ROM - Respiratory Respiratory effort: normal Respiratory: bilateral: CTA - Cardiovascular Heart rate: 78 Rhythm: regular Heart Sounds: Present: S1 & S2. Absent: rub, click - Extremities Extremities: pulses symmetrical, No edema Peripheral Pulses: within normal limits - Abdominal General gastrointestinal: Present: soft, non-tender, non-distended, normal bowel sounds Female genitourinary: Present: normal - Integumentary Integumentary: Present: clear, warm, dry - Musculoskeletal Musculoskeletal: strength equal bilaterally (Power is 5/5 power in both upper and lower extremities) - Psychiatric Psychiatric: appropriate mood/affect, intact judgment & insight - Neurologic Neurologic: CNII-XII intact, moves all extremities, other (Alert and oriented x4) Plan Activity: no restrictions Diet: renal Follow up with: EDDA WILKES MD [Primary Care Provider] - 7 Days WENDY FERNANDEZ MD [Staff Physician] - 7 Days
[2020-10-05] MEDS ORDERED: SODIUM POLYSTYRENE 15 GM/60 ML ORAL LIQD PO SCH (17:00)
[2020-10-05 17:57] LABS: Calcium 9.8 mg/dL (8.4-10.2)
== END 2020-10-05 18:43 | disposition home or self-care (01) ==
LOC: ED 10:39 → 4A 15:16
PROVIDERS: ADMIT Internal Medicine; ATTEND Internal Medicine
DX: I63.9 Cerebral infarction, unspecified (principal); E87.8 Other disorders of electrolyte and fluid balance, not elsewhere classified; I13.2 Hypertensive heart and chronic kidney disease with heart failure and with stage 5 chronic kidney disease, or end stage renal disease; I50.9 Heart failure, unspecified; N18.6 End stage renal disease; E66.9 Obesity, unspecified; I25.2 Old myocardial infarction; M19.90 Unspecified osteoarthritis, unspecified site; K21.9 Gastro-esophageal reflux disease without esophagitis; R00.1 Bradycardia, unspecified; R29.705 NIHSS score 5; R41.82 Altered mental status, unspecified; Z99.2 Dependence on renal dialysis; Z98.84 Bariatric surgery status; Z90.49 Acquired absence of other specified parts of digestive tract; Z98.890 Other specified postprocedural states; Z79.82 Long term (current) use of aspirin; Z95.1 Presence of aortocoronary bypass graft; Z79.899 Other long term (current) drug therapy; Z68.36 Body mass index [BMI] 36.0-36.9, adult
CPT/HCPCS: 36415; 70450; 71045; 80048; 80053; 82140; 82962; 84443; 85025; 92610; 93005; 93306; 93880; 94640; 96372; 97162; 97165; 99291; A9270; G0378; J1644; 80320; G0480

== ENCOUNTER 2021-01-03 13:17 | Observation (INO) | payer MEDICARE ==
--- NOTE | 2021-01-03 14:05 | XRay Report ---
CHEST 2 VIEWS INDICATION / CLINICAL INFORMATION: Chest pain. COMPARISON: One view of the chest from 10/04/2020. FINDINGS: SUPPORT DEVICES: None. HEART / MEDIASTINUM: No significant abnormality. LUNGS / PLEURA: Clear lungs. No significant pleural effusion. No pneumothorax. ADDITIONAL FINDINGS: A stent is partially visualized along the left axillary region with adjacent cli ps. IMPRESSION: 1. No acute abnormality of the chest. Signer Name: Phillip Schofield MD Signed: 01/03/2021 2:00 PM Workstation Name: [id number]
[2021-01-03 14:24] LABS: Basophils # (Auto) 0.1 K/mm3 (0.0-0.1); Basophils % (Auto) 0.6 % (0.0-1.8); Eosinophils # (Auto) 0.9 K/mm3 (0.0-0.4); Eosinophils % (Auto) 9.2 % (0.0-4.3); Hematocrit 38.4 % (30.3-42.9); Hemoglobin 12.5 gm/dl (10.1-14.3); Lymphocytes # (Auto) 1.4 K/mm3 (1.2-5.4); Mean Corpuscular HGB Conc 33 % (30-34); Mean Corpuscular Volume 96 fl (79-97); Monocytes # (Auto) 0.8 K/mm3 (0.0-0.8); Monocytes % (Auto) 8.3 % (0.0-7.3); Platelet Count 172 K/mm3 (140-440); Red Blood Count 3.99 M/mm3 (3.65-5.03); Red Cell Distribution Width 15.4 % (13.2-15.2)
[2021-01-03 14:42] LABS: Albumin 3.7 g/dL (3.9-5); Calcium 10.8 mg/dL (8.4-10.2)
--- NOTE | 2021-01-03 18:57 | Emergency Department Report ---
ED Chest Pain HPI - General Chief Complaint: Chest Pain Stated Complaint: CHEST PAIN Time Seen by Provider: 01/03/21 18:45 Source: patient Mode of arrival: Ambulatory Limitations: No Limitations - History of Present Illness Initial Comments: 60-year-old female with history of ESRD, CAD with stent, hypertension, TIA, presents to ED with chest pain. Patient states pain started at around 12:30 PM, after returning from dialysis. Patient reports pain lasted for approximately 1 hour. Pain located in the left chest, nonradiating, throbbing in nature, co nstant. Onset at rest. Denies any aggravating or alleviating factors. Pain is currently resolved. She denies any associated shortness of breath, leg pain or swelling, nausea or vomiting, or diaphoresis. Patient states last stress test was approximately 2 years ago. Key Bed Installer: Dr. Carlos BEGUM Complaint: chest pain -: This afternoon Onset: during rest Pain Location: left chest Pain Radiation: none Severity: moderate Quality: other (throbbing) Consistency: constant, now resolved Improves With: nothing Worsens With: nothing re: denies: nausea, vomting, diaphoresis, dyspnea Other Symptoms: denies: cough, fever, leg swelling Treatments Prior to Arrival: aspirin - Related Data Home Medications Medication Instructions Recorded Confirmed Last Taken Aspirin 81 mg PO DAILY 07/20/20 10/04/20 07/19/20 17:00 Calcitriol 0.5 mcg PO BID 07/20/20 10/04/20 07/19/20 17:00 Calcium Acetate 667 mg PO AC 07/20/20 10/04/20 07/19/20 17:00 Cyclobenzaprine 10 mg PO BID PRN 07/20/20 10/04/20 Unknown Montelukast 10 mg PO DAILY PRN 07/20/20 10/04/20 Unknown Nitroglycerin 0.4 mg SUBLINGUAL PRN PRN 07/20/20 10/04/20 Unknown Pantoprazole 40 mg PO DAILY 07/20/20 10/04/20 07/19/20 15:00 Renvela 800 mg PO AC 07/20/20 10/04/20 07/19/20 17:00 Rosuvastatin (Nf) 5 mg PO DAILY 07/20/20 10/04/20 07/19/20 09:00 Sodium Bicarbonate 10 gm PO BID 07/20/20 10/04/2007/18/20 17:00 Symbicort 160-4.5 Mcg Inhaler 2 puff INHALATION BID PRN 07/20/20 10/04/20 07/17/20 09:00 Vitamin D2 2,000 mg PO DAILY 07/20/20 10/04/20 07/16/20 09:00 Zolpidem 5 mg PO HS 07/20/20 10/04/20 07/19/20 21:00 hydrALAZINE 25 mg PO BID 07/20/20 10/04/20 07/19/20 09:00 Previous Rx's Medication Instructions Recorded Last Taken Type Promethazine [Phenergan SUPPOS] 25 mg SC Q6HR PRN #5 supp.rect 04/03/19 06/29/20 09:00 Rx Metoclopramide HCl [Reglan TAB] 10 mg PO TIDAC #30 tablet 04/09/19 Unknown Rx HYDROcodone/APAP 7.5-325 [[place] 1 each PO Q6HR PRN #40 tablet 07/20/20 Unknown Rx 7.5-325 mg TAB] Allergies Allergy/AdvReac Type Severity Reaction Status Date / Time Penicillins Allergy Severe Anaphylaxis Verified 01/03/21 13:23 Calcium Channel Blocking Allergy Unknown Unknown Verified 01/03/21 13:23 Agent Dilt nifedipine Allergy Unknown Unknown Verified 01/03/21 13:23 JOHN Inhibitors AdvReac Unknown Unknown Verified 01/03/21 13:23 Iodinated Contrast Media AdvReac Unknown Unknown Verified 01/03/21 13:23 Heart Score - HEART Score History: Slightly suspicious EKG: Normal Age: 45-65 Risk factors: > 3 risk factors or hx of atherosclerotic disease Troponin: < normal limit HEART Score: 3 ED Review of Systems ROS: Stated complaint: CHEST PAIN Other details as noted in HPI Comment: All other systems reviewed and negative Constitutional: denies: chills, fever Respiratory: denies: cough, shortness of breath Cardiovascular: chest pain Gastrointestinal: denies: nausea, vomiting ED Past Medical Hx - Past Medical History Hx Hypertension: Yes Hx Heart Attack/AMI: Yes (2011; no nitroglycerine use since stent placement) Hx Congestive Heart Failure: Yes Hx GERD: Yes Hx Liver Disease: No Hx Renal Disease: Yes Hx Arthritis: Yes Hx COPD: Yes (chronic bronchitis, last albuterol use 1 month ago) - Surgical History Hx Pacemaker: No Hx Internal Defibrillator: No Hx Cholecystectomy: Yes (2011) Additional Surgical History: Stent x1 01/18, fistula left arm, gastric bypass 2013, - Social History Smoking Status: Never Smoker Substance Use Type: None - Medications Home Medications: Home Medications Medication Instructions Recorded Confirmed Last Taken Type Promethazine [Phenergan SUPPOS] 25 mg SC Q6HR PRN #5 supp.rect 04/03/19 10/04/20 06/29/20 09:00 Rx Metoclopramide HCl [Reglan TAB] 10 mg PO TIDAC #30 tablet 04/09/19 10/04/20 Unkn own Rx Aspirin 81 mg PO DAILY 07/20/20 10/04/20 07/19/20 17:00 History Calcitriol 0.5 mcg PO BID 07/20/20 10/04/20 07/19/20 17:00 History Calcium Acetate 667 mg PO AC 07/20/20 10/04/20 07/19/20 17:00 History Cyclobenzaprine 10 mg PO BID PRN 07/20/20 10/04/20 Unknown History HYDROcodone/APAP 7.5-325 [[place] 1 each PO Q6HR PRN #40 tablet 07/20/20 10/04/20 Unknown Rx 7.5-325 mg TAB] Montelukast 10 mg PO DAILY PRN 07/20/20 10/04/20 Unknown History Nitroglycerin 0.4 mg SUBLINGUAL PRN PRN 07/20/20 10/04/20 Unknown History Pantoprazole 40 mg PO DAILY 07/20/20 10/04/20 07/19/20 15:00 History Renvela 800 mg PO AC 07/20/20 10/04/20 07/19/20 17:00 History Rosuvastatin (Nf) 5 mg PO DAILY 07/20/20 10/04/20 07/19/20 09:00 History Sodium Bicarbonate 10 gm PO BID 07/20/20 10/04/20 07/18/20 17:00 History Symbicort 160-4.5 Mcg Inhaler 2 puff INHALATION BID PRN 07/20/20 10/04/20 07/17/20 09:00 History Vitamin D2 2,000 mg PO DAILY 07/20/20 10/04/20 07/16/20 09:00 History Zolpidem 5 mg PO HS 07/20/20 10/04/20 07/19/20 21:00 History hydrALAZINE 25 mg PO BID 07/20/20 10/04/20 07/19/20 09:00 History ED Physical Exam - General Limitations: No Limitations General appearance: alert, in no apparent distress - Head Head exam: Present: atraumatic, normocephalic - Eye Eye exam: Present: normal appearance, EOMI - ENT ENT exam: Present: mucous membranes moist - Neck Neck exam: Present: normal inspection - Respiratory Respiratory exam: Present: normal lung sounds bilaterally. Absent: respiratory distress - Cardiovascular Cardiovascular Exam: Present: regular rate, normal rhythm - GI/Abdominal GI/Abdominal exam: Present: soft. Absent: distended, tenderness - Extremities Exam Extremities exam: Present: normal inspection - Neurological Exam Neurological exam: Present: alert, oriented X3 - Psychiatric Psychiatric exam: Present: normal affect, normal mood - Skin Skin exam: Present: warm, dry, intact, normal color ED Course Vital Signs 01/03/21 01/03/21 01/03/21 13:22 19:00 19:01 Temperature 97.8 F 97.7 F Pulse Rate 99 H 70 Respiratory 20 18 18 Rate Blood Pressure 91/56 Blood Pressure 105/52 [Right] O2 Sat by Pulse 99 98 98 Oximetry 01/03/21 01/03/21 01/03/21 19:21 19:22 20:00 Temperature 98.2 F Pulse Rate 66 62 Respiratory 15 11 L Rate Blood Pressure 117/64 Blood Pressure 110/57 [Right] O2 Sat by Pulse 100 100 Oximetry 01/03/21 01/03/21 01/03/21 21:00 22:00 23:29 Temperature Pulse Rate 65 71 71 Respiratory 14 15 Rate Blood Pressure 111/60 109/58 Blood Pressure [Right] O2 Sat by Pulse 98 100 Oximetry ED Medical Decision Making - Lab Data Result diagrams: 01/03/21 14:01 01/03/21 14:01 - EKG Data -: EKG Interpreted by Co EKG shows normal: sinus rhythm, axis, intervals, QRS complexes, ST-T waves Rate: normal - EKG Data Interpretation: no acute changes - Radiology Data Radiology results: report reviewed, image reviewed - Medical Decision Making 60-year-old female with history of CAD presents to ED with chest pain. Patient reports pain lasted for approximately 1 hour. EKG shows no ST changes, troponin within normal limits x2. Chest x-ray is unremarkable. Patient is currently chest pain-free. Patient states she has followed up with her program development specialist in the past year. States it has been approximately 2 years since her last stress test. Patient reports taking aspirin at home prior to ED arrival. Spoke with hospitalist, Dr. Alcocer, who will admit the patient for further management. - Differential Diagnosis ACS, pneumonia, atypical chest pain Critical care attestation.: If time is entered above; I have spent that time in minutes in the direct care of this critically ill patient, excluding procedure time. ED Disposition Clinical Impression: Chest pain Disposition: DC-09 OP ADMIT IP TO THIS HOSP Is pt being admited?: Yes Condition: Stable Time of Disposition: 21:37
[2021-01-03] MEDS ORDERED: ASPIRIN 325 MG TAB PO ONE (21:37)
[2021-01-03] MEDS ORDERED: NITROGLYCERIN 0.4 MG TAB SUBL SL PRN (22:13)
[2021-01-03] MEDS ORDERED: ONDANSETRON 4 MG/2 ML INJ IV PRN (22:13)
[2021-01-03] MEDS ORDERED: ACETAMINOPHEN 325 MG TAB PO PRN ×2 (22:13)
[2021-01-03] MEDS ORDERED: MAGNESIUM HYDROXIDE (MOM) ORAL LIQD UDC PO PRN (22:13)
[2021-01-03] MEDS ORDERED: traMADol 50 MG TAB PO PRN (22:13)
[2021-01-03] MEDS ORDERED: MORPHINE 4 MG/1 ML INJ IV PRN (22:13)
--- NOTE | 2021-01-03 22:27 | History and Physical Report ---
History of Present Illness Date of examination: 01/03/21 Date of admission: 01/03/21 21:38 Chief complaint: Chest Pain History of present illness: 60-year-old -Greek female with known history of coronary artery disease with stent in the past, hypertension, TIA, end-stage renal disease on dialysis on Sunday, Sunday and Sunday presenting to the emergency room today complaining of chest pain. Chest pain was said to have started earlier this afternoon after returning from dialysis session. Pain lasted for about 1 hour and was left-sided and throbbing in nature. Pain was constant and nonradiating. No no relieving or exacerbating factor. She denies any nausea vomiting, no headache or dizziness, no diaphoresis, no shortness of breath. Patient follows up with rn homecare Dr. Gonzalez and indicates her last stress test was about 2 years ago. Work-up in the emergency room so far has been negative. Patient is being admitted for chest pain work-up. Past History Past Medical History: arthritis, CAD (With [place] in 2011), COPD, dialysis, ESRD, GERD, hypertension Past Surgical History: cholecystectomy, PTCA (stent placement in 2012), Other (A-V fistula placement. Gastric bypass in 2013.) Social history: no significant social history Family history: no significant family history Medications and Allergies Allergies Allergy/AdvReac Type Severity Reaction Status Date / Time Penicillins Allergy Severe Anaphylaxis Verified 01/03/21 13:23 Calcium Channel Blocking Allergy Unknown Unknown Verified 01/03/21 13:23 Agent Dilt nifedipine Allergy Unknown Unknown Verified 01/03/21 13:23 JOHN Inhibitors AdvReac Unknown Unknown Verified 01/03/21 13:23 Iodinated Contrast Media AdvReac Unknown Unknown Verified 01/03/21 13:23 Home Medications Medication Instructions Recorded Confirmed Last Taken Type Promethazine [Phenergan SUPPOS] 25 mg SC Q6HR PRN #5 supp.rect 04/03/19 10/04/20 06/29/20 09:00 Rx Metoclopramide HCl [Reglan TAB] 10 mg PO TIDAC #30 tablet 04/09/19 10/04/20 Unknown Rx Aspirin 81 mg PO DAILY 07/20/20 10/04/20 07/19/20 17:00 History Calcitriol 0.5 mcg PO BID 07/20/20 10/04/20 07/19/20 17:00 History Calcium Acetate 667 mg PO AC 07/20/20 10/04/20 07/19/20 17:00 History Cyclobenzaprine 10 mg PO BID PRN 07/20/20 10/04/20 Unknown History HYDROcodone/APAP 7.5-325 [[place] 1 each PO Q6HR PRN #40 tablet 07/20/20 10/04/20 Unknown Rx 7.5-325 mg TAB] Montelukast 10 mg PO DAILY PRN 07/20/20 10/04/20 Unknown History Nitroglycerin 0.4 mg SUBLINGUAL PRN PRN 07/20/20 10/04/20 Unknown History Pantoprazole 40 mg PO DAILY 07/20/20 10/04/20 07/19/20 15:00 History Renvela 800 mg PO AC 07/20/20 10/04/20 07/19/20 17:00 History Rosuvastatin (Nf) 5 mg PO DAILY 07/20/20 10/04/20 07/19/20 09:00 History Sodium Bicarbonate 10 gm PO BID 07/20/20 10/04/20 07/18/20 17:00 History Symbicort 160-4.5 Mcg Inhaler 2 puff INHALATION BID PRN 07/20/20 10/04/20 07/17/20 09:00 History Vitamin D2 2,000 mg PO DAILY 07/20/20 10/04/20 07/16/20 09:00 History Zolpidem 5 mg PO HS 07/20/20 10/04/20 07/19/20 21:00 History hydrALAZINE 25 mg PO BID 07/20/20 10/04/20 07/19/20 09:00 History Active Meds: Active Medications Acetaminophen (Acetaminophen 325 Mg Tab) 650 mg PO Q4H PRN PRN Reason: Pain MILD(1-3)/Fever >100.5/BROWN Acetaminophen (Acetaminophen 325 Mg Tab) 650 mg PO Q6H PRN PRN Reason: Pain, Mild (1-3) Aspirin (Aspirin Ec 325 Mg Tab) 325 mg PO QDAY THERESE Heparin Sodium (Porcine) (Heparin 5,000 Unit/1 Ml Vial) 5,000 unit SUB-Q Q8HR [facility]ERESE Magnesium Hydroxide (Magnesium Hydroxide (Mom) Oral Liqd Udc) 30 ml PO Q4H PRN PRN Reason: Constipation Morphine Sulfate (Morphine 4 Mg/1 Ml Inj) 2 mg IV Q5MIN PRN PRN Reason: Chest Pain Nitroglycerin (Nitroglycerin 0.4 Mg Tab Subl) 0.4 mg SL Q5M PRN PRN Reason: Chest Pain Ondansetron HCl (Ondansetron 4 Mg/2 Ml Inj) 4 mg IV Q8H PRN PRN Reason: Nausea And Vomiting Sodium Chloride (Sodium Chloride 0.9% 10 Ml Flush Syringe) 10 ml IV BID THERESE Sodium Chloride (Sodium Chloride 0.9% 10 Ml Flush Syringe) 10 ml IV PRN PRN PRN Reason: LINE FLUSH Sodium Chloride (Sodium Chloride 0.9% 10 Ml Flush Syringe) 10 ml IV PRN PRN PRN Reason: LINE FLUSH Tramadol HCl (Tramadol 50 Mg Tab) 50 mg PO Q6H PRN PRN Reason: Pain, Moderate (4-6) Review of Systems Constitutional: no fever, no chills Ears, nose, mouth and throat: no nasal congestion, no sore throat Cardiovascular: chest pain, no palpitations Respiratory: no cough, no shortness of breath Gastrointestinal: no abdominal pain, no nausea, no vomiting, no diarrhea Genitourinary Female: no dysuria, no hematuria Musculoskeletal: no neck pain, no low back pain Integumentary: no rash, no pruritis Neurological: no headaches, no confusion Psychiatric: no anxiety, no confusion Endocrine: nocturia, no polyphagia, no polydipsia, no polyuria Exam - Constitutional Vitals: Temp Pulse Resp BP Pulse Ox 98.2 F 71 15 109/58 100 01/03/21 19:22 01/03/21 22:00 01/03/21 22:00 01/03/21 22:00 01/03/21 22:00 General appearance: Present: no acute distress, well-nourished - EENT Eyes: Present: PERRL, EOM intact. Absent: scleral icterus ENT: hearing intact, clear oral mucosa, dentition normal - Neck Neck: Present: supple, normal ROM - Respiratory Respiratory effort: normal Respiratory: bilateral: CTA - Cardiovascular Rhythm: regular Heart Sounds: Present: S1 & S2. Absent: gallop, systolic murmur, diastolic murmur, rub, click - Extremities Extremities: no ischemia, pulses intact, pulses symmetrical, No edema, normal temperature, normal color, Full ROM Peripheral Pulses: within normal limits - Abdominal General gastrointestinal: Present: soft, non-tender, non-distended, normal bowel sounds. Absent: mass - Integumentary Integumentary: Present: clear, warm, dry, normal turgor. Absent: rash - Musculoskeletal Musculoskeletal: strength equal bilaterally - Psychiatric Psychiatric: appropriate mood/affect, intact judgment & insight, memory intact, cooperative - Neurologic Neurologic: CNII-XII intact, moves all extremities HEART Score - HEART Score History: Slightly suspicious EKG: Non-specific Age: 45-65 Risk factors: 1-2 risk factors Troponin: Troponin T 0.019 ng/mL (0.00-0.029) 01/03/21 19:00 Troponin: < normal limit HEART Score: 3 Results - Labs CBC & Chem 7: 01/03/21 14:01 01/03/21 14:01 Labs: Abnormal lab results 01/03/21 01/03/21 Range/Units 14:01 14:01 RDW 15.4 H (13.2-15.2) % [place] % (Auto) 8.3 H (0.0-7.3) % Eos % (Auto) 9.2 H (0.0-4.3) % Eos # (Auto) 0.9 H (0.0-0.4) K/mm3 Sodium 132 L (137-145) mmol/L Chloride 96.1 L (98-107) mmol/L Carbon Dioxide 20 L (22-30) mmol/L BUN 22 H (7-17) mg/dL Creatinine 4.8 H (0.6-1.2) mg/dL Calcium 10.8 H (8.4-10.2) mg/dL Albumin 3.7 L (3.9-5) g/dL Assessment and Plan - Patient Problems (1) Chest pain Current Visit: Yes Status: Acute Plan to address problem: Patient admitted and placed on telemetry. We will monitor serial cardiac enzymes. Patient placed on aspirin, sublingual nitroglycerin and IV morphine as needed for chest pain. We will place consult to cardiology for evaluation. (2) CAD (coronary artery disease) Current Visit: No Status: Acute Qualifiers: Associated angina: without angina Plan to address problem: Patient has known history of coronary artery disease with stent placement sometime in 2012. Last stress test was about 2 years ago. Patient follows up with rn homecare -Dr. Gonzalez (3) ESRD on dialysis Current Visit: No Status: Acute Plan to address problem: Patient gets dialysis on Mondays, Wednesdays and Fridays. She has been compliant with her dialysis. We will place consult to nephrology for evaluation. (4) HTN (hypertension) Current Visit: No Status: Chronic Qualifiers: Hypertension type: essential hypertension Qualified Code(s): I10 - Essential (primary) hypertension Plan to address problem: We will resume routine home medications and monitor vital signs closely. (5) DVT prophylaxis Current Visit: No Status: Acute Plan to address problem: Patient placed on subcutaneous heparin. (6) Full code status Current Visit: Yes Status: Acute Plan to address problem: Patient is a full code.
[2021-01-04] MEDS ORDERED: PROMETHAZINE 25 MG RECT SUPP PR PRN (01:24)
[2021-01-04] MEDS ORDERED: NON-FORMULARY EACH (Symbicort 160-4.5 Mcg Inhaler 2 PUFF) INHALATION PRN (01:24)
[2021-01-04 06:14] LABS: Basophils # (Auto) 0.1 K/mm3 (0.0-0.1); Basophils % (Auto) 0.8 % (0.0-1.8); Eosinophils # (Auto) 0.9 K/mm3 (0.0-0.4); Hemoglobin 11.8 gm/dl (10.1-14.3); Lymphocytes # (Auto) 1.6 K/mm3 (1.2-5.4); Lymphocytes % (Auto) 18.2 % (13.4-35.0); Mean Corpuscular HGB Conc 33 % (30-34); Mean Corpuscular Volume 94 fl (79-97); Monocytes # (Auto) 0.8 K/mm3 (0.0-0.8); Monocytes % (Auto) 9.1 % (0.0-7.3); Platelet Count 184 K/mm3 (140-440); Red Blood Count 3.84 M/mm3 (3.65-5.03); Red Cell Distribution Width 15.4 % (13.2-15.2)
[2021-01-04 06:23] LABS: INR 1.04 (0.87-1.13)
[2021-01-04] MEDS: HEPARIN 5,000 UNIT/1 ML VIAL SUB-Q SCH ×3 (06:55→21:14)
[2021-01-04 07:00] LABS: Calcium 10.5 mg/dL (8.4-10.2); Chol/HDL Ratio 1.87 %
[2021-01-04] MEDS ORDERED: REGADENOSON 0.4 MG/5 ML INJ IV ONE ×2 (07:11→10:04)
[2021-01-04] MEDS ORDERED: NON-FORMULARY EACH (Metoclopramide Hcl [Reglan Tab] 5 MG Tablet) PO SCH (07:30)
[2021-01-04] MEDS ORDERED: RENVELA 800 MG PO SCH (07:30)
[2021-01-04] MEDS ORDERED: BUDESONIDE 0.5 MG/2 ML NEBU IH SCH (08:00)
[2021-01-04] MEDS: SEVELAMER CARBONATE 800 MG TAB PO SCH ×3 (09:51→16:29)
[2021-01-04] MEDS: METOCLOPRAMIDE 10 MG TAB PO SCH ×3 (09:51→16:29)
[2021-01-04] MEDS: ASPIRIN EC 325 MG TAB PO SCH ×2 (09:52→14:04)
[2021-01-04] MEDS: hydrALAZINE 25 MG TAB PO SCH ×3 (09:52→21:13)
[2021-01-04] MEDS: PANTOPRAZOLE 40 MG TAB PO SCH (09:53)
[2021-01-04] MEDS: CHOLECALCIFEROL (VIT D3) 1000 UNIT (25 mcg) TAB PO SCH ×2 (09:53→14:03)
[2021-01-04] MEDS: SODIUM BICARBONATE 650 MG TAB PO SCH ×3 (09:53→21:22)
[2021-01-04] MEDS: CALCITRIOL 0.5 MCG CAP PO SCH ×3 (09:53→21:15)
[2021-01-04] MEDS ORDERED: VITAMIN D2 PO SCH (10:00)
[2021-01-04] MEDS ORDERED: SODIUM BICARBONATE 10 GM PO SCH (10:00)
[2021-01-04] MEDS ORDERED: NON-FORMULARY EACH (Pantoprazole 40 MG) PO SCH (10:00)
[2021-01-04] MEDS ORDERED: NON-FORMULARY EACH (Hydralazine 25 MG) PO SCH (10:00)
[2021-01-04] MEDS ORDERED: NON-FORMULARY EACH (Rosuvastatin (Nf) 5 MG) PO SCH (10:00)
[2021-01-04] MEDS ORDERED: CALCITRIOL 0.5 MCG PO SCH (10:00)
--- NOTE | 2021-01-04 10:44 | Discharge Summary ---
Providers - Providers Date of Admission: 01/03/21 21:38 Date of discharge: 01/04/21 Attending physician: EVELINA ROSENBAUM 01/03/21 Consult to Cardiac Rehabilitation [CONS] Routine Reason For Exam: Phase I 01/03/21 22:13 Consult to Cardiology [CONS] Routine Consulting Provider: JORGE BISHOP Reason For Exam: chest pain 01/04/21 08:37 Consult to Physician [CONS] Routine Comment: Consulting Provider: DOMINGA BUTLER Physician Instructions: Reason For Exam: ESRD oN HD Primary care physician: ZA DURON Hospitalization Reason for admission: Chest pain Condition: Stable Hospital course: 60-year-old -Central African female with known history of coronary artery disease with stent in the past, hypertension, COPD, GERD TIA, end-stage renal disease on dialysis on Sunday, Sunday and Sunday presenting to the emergency room yesterday complaining of chest pain. The patient was admitted with diagnosis of chest pain. EKG revealed normal sinus rhythm with no ST-T wave changes. Troponin was found to be normal. The patient underwent stress test and if found to be negative will likely discharge home. Etiology of chest pain if stress test negative secondary to GERD. Patient is currently pain-free. Dedicated discharge time 32 minutes. Disposition: - TO HOME OR SELFCARE Final Discharge Diagnosis (Prints w/discharge instructions): Chest pain associated with GERD Time spent for discharge: 32 - Discharge Diagnoses (1) GERD (gastroesophageal reflux disease) Status: Acute (2) Chest pain Status: Acute Core Measure Documentation - Palliative Care Palliative Care/ Comfort Measures: Not Applicable - Core Measures Any of the following diagnoses?: none Exam - Constitutional Vitals: Temp Pulse Resp BP Pulse Ox 97.9 F 67 16 120/54 100 01/04/21 07:36 01/04/21 07:36 01/04/21 07:36 01/04/21 07:36 01/04/21 07:36 General appearance: Present: no acute distress, well-nourished - EENT Eyes: Present: PERRL ENT: hearing intact, clear oral mucosa - Neck Neck: Present: supple, normal ROM - Respiratory Respiratory effort: normal Respiratory: bilateral: CTA - Cardiovascular Heart Sounds: Present: S1 & S2. Absent: rub, click - Extremities Extremities: pulses symmetrical, No edema Peripheral Pulses: within normal limits - Abdominal General gastrointestinal: Present: soft, non-tender, non-distended, normal bowel sounds Female genitourinary: Present: normal - Integumentary Integumentary: Present: clear, warm, dry - Musculoskeletal Musculoskeletal: gait normal, strength equal bilaterally - Psychiatric Psychiatric: appropriate mood/affect, intact judgment & insight - Neurologic Neurologic: CNII-XII intact, moves all extremities Plan Activity: advance as tolerated Weight Bearing Status: Weight Bear as Tolerated Diet: low fat, low cholesterol, low salt Follow up with: ZA DURON MD [Primary Care Provider] - 3-5 Days Prescriptions: Pantoprazole 40 mg PO DAILY #30
--- NOTE | 2021-01-04 11:57 | Consultation ---
History of Present Illness - Reason for Consult Consult date: 01/04/21 end stage renal disease - History of Present Illness This is a 60 year-old woman with ESRD who presents for chest pain Patient usually dialyzes M/W/F at [facility]. Last HD 01/03. Denies any recent issues with HD, including dizziness, lightheadedness, cramping, chest pain on HD. However, she began having chest discomfort on left side about 1-2 hours after HD, not had recently similar pain. Currently, patient denies any issues including dyspnea, edema, access issues, nausea, vomiting, headaches. Notes that chest is feeling better this AM. Past History Past Medical History: arthritis, CAD (With [place] in 2011), COPD, dialysis, ESRD, GERD, hypertension Past Surgical History: cholecystectomy, PTCA (stent placement in 2012), Other (A-V fistula placement. Gastric bypass in 2013.) Social history: no significant social history Family history: no significant family history Medications and Allergies Allergies Allergy/AdvReac Type Severity Reaction Status Date / Time Penicillins Allergy Severe Anaphylaxis Verified 01/03/21 13:23 Calcium Channel Blocking Allergy Unknown Unknown Verified 01/03/21 13:23 Agent Dilt nifedipine Allergy Unknown Unknown Verified 01/03/21 13:23 JOHN Inhibitors AdvReac Unknown Unknown Verified 01/03/21 13:23 Iodinated Contrast Media AdvReac Unknown Unknown Verified 01/03/21 13:23 Home Medications Medication Instructions Recorded Confirmed Last Taken Type Promethazine [Phenergan SUPPOS] 25 mg NC Q6HR PRN #5 supp.rect 04/03/19 10/04/20 06/29/20 09:00 Rx Metoclopramide HCl [Reglan TAB] 10 mg PO TIDAC #30 tablet 04/09/19 10/04/20 Unknown Rx Aspirin 81 mg PO DAILY 07/20/20 10/04/20 07/19/20 17:00 History Calcitriol 0.5 mcg PO BID 07/20/20 10/04/20 07/19/20 17:00 History Calcium Acetate 667 mg PO AC 07/20/20 10/04/20 07/19/20 17:00 History Cyclobenzaprine 10 mg PO BID PRN 07/20/20 10/04/20 Unknown History HYDROcodone/APAP 7.5-325 [[place] 1 each PO Q6HR PRN #40 tablet 07/20/20 10/04/20 Unknown Rx 7.5-325 mg TAB] Montelukast 10 mg PO DAILY PRN 07/20/20 10/04/20 Unknown History Nitroglycerin 0.4 mg SUBLINGUAL PRN PRN 07/20/20 10/04/20 Unknown History Renvela 800 mg PO AC 07/20/20 10/04/20 07/19/20 17:00 History Rosuvastatin (Nf) 5 mg PO DAILY 07/20/20 10/04/20 07/19/20 09:00 History Sodium Bicarbonate 10 gm PO BID 07/20/20 10/04/20 07/18/20 17:00 History Symbicort 160-4.5 Mcg Inhaler 2 puff INHALATION BID PRN 07/20/20 10/04/20 07/17/20 09:00 History Vitamin D2 2,000 mg PO DAILY 07/20/20 10/04/20 07/16/20 09:00 History Zolpidem 5 mg PO HS 07/20/20 10/04/20 07/19/20 21:00 History hydrALAZINE 25 mg PO BID 07/20/20 10/04/20 07/19/20 09:00 History Pantoprazole 40 mg PO DAILY #30 01/04/21 Unknown Rx Active Meds: Active Medications Acetaminophen (Acetaminophen 325 Mg Tab) 650 mg PO Q4H PRN PRN Reason: Pain MILD(1-3)/Fever >100.5/BROWN Arformoterol Tartrate (Arformoterol 15 Mcg/2 Ml Nebu) 15 mcg IH Q12HRT [facility] Aspirin (Aspirin Ec 325 Mg Tab) 325 mg PO QDAY [facility] Last Admin: 01/04/21 09:52 Dose: Not Given Documented by: Atorvastatin Calcium (Atorvastatin 10 Mg Tab) 10 mg PO QHS [facility] Budesonide (Budesonide 0.5 Mg/2 Ml Nebu) 1 mg IH Q12HRT [facility] Calcitriol (Calcitriol 0.5 Mcg Cap) 0.5 mcg PO BID [facility] Last Admin: 01/04/21 09:53 Dose: Not Given Documented by: Cholecalciferol (Cholecalciferol (Vit D3) 1000 Unit (25 Mcg) Tab) 2,000 unit PO DAILY [facility] Last Admin: 01/04/21 09:53 Dose: Not Given Documented by: Heparin Sodium (Porcine) (Heparin 5,000 Unit/1 Ml Vial) 5,000 unit SUB-Q Q8HR [facility] Last Admin: 01/04/21 06:55 Dose: 5,000 unit Documented by: Hydralazine HCl (Hydralazine 25 Mg Tab) 25 mg PO BID [facility] Last Admin: 01/04/21 09:52 Dose: Not Given Documented by: Magnesium Hydroxide (Magnesium Hydroxide (Mom) Oral Liqd Udc) 30 ml PO Q4H PRN PRN Reason: Constipation Metoclopramide HCl (Metoclopramide 10 Mg Tab) 5 mg PO TIDAC [facility] Last Admin: 01/04/21 09:51 Dose: Not Given Documented by: Morphine Sulfate (Morphine 4 Mg/1 Ml Inj) 2 mg IV Q5MIN PRN PRN Reason: Chest Pain Nitroglycerin (Nitroglycerin 0.4 Mg Tab Subl) 0.4 mg SL Q5M PRN PRN Reason: Chest Pain Ondansetron HCl (Ondansetron 4 Mg/2 Ml Inj) 4 mg IV Q8H PRN PRN Reason: Nausea And Vomiting Pantoprazole Sodium (Pantoprazole 40 Mg Tab) 40 mg PO DAILY [facility] Last Admin: 01/04/21 09:53 Dose: Not Given Documented by: Promethazine HCl (Promethazine 25 Mg Rect Supp) 25 mg NC Q6HR PRN PRN Reason: Vomiting Sevelamer Carbonate (Sevelamer Carbonate 800 Mg Tab) 800 mg PO AC [facility] Last Admin: 01/04/21 09:51 Dose: Not Given Documented by: Sodium Bicarbonate (Sodium Bicarbonate 650 Mg Tab) 650 mg PO BID [facility] Last Admin: 01/04/21 09:53 Dose: Not Given Documented by: Sodium Chloride (Sodium Chloride 0.9% 10 Ml Flush Syringe) 10 ml IV BID [facility] Last Admin: 01/04/21 09:52 Dose: 10 ml Documented by: Sodium Chloride (Sodium Chloride 0.9% 10 Ml Flush Syringe) 10 ml IV PRN PRN PRN Reason: LINE FLUSH Tramadol HCl (Tramadol 50 Mg Tab) 50 mg PO Q6H PRN PRN Reason: Pain, Moderate (4-6) Zolpidem Tartrate (Zolpidem 5 Mg Tab) 5 mg PO QHS [facility] Review of Systems All systems: negative (as per HPI) Exam - Vital Signs Vital signs: Vital Signs Temp Pulse Resp BP Pulse Ox 97.8 F 99 H 20 91/56 99 01/03/21 13:22 01/03/21 13:22 01/03/21 13:22 01/03/21 13:22 01/03/21 13:22 - Physical Exam Narrative exam: Constitutional: no acute distress Head: NC/AT Neck: supple Lungs: clear to auscultation CV: RRR, no M/R/G Abdomen: soft, non-tender, bowel sounds present Back: nontender Extremities: no edema, pulses WNL Skin: intact Neuro: no focal deficits, alert and oriented x4 Results - Lab Results 01/04/21 05:46 01/04/21 05:46 Most recent lab results Calcium 10.5 mg/dL (8.4-10.2) H 01/04/21 05:46 Assessment and Plan This is a 60 year old woman who presents with chest pain # ESRD: no indication for HD today per labs/volume, plan for HD tomorrow inpatient or outpatient pending cardiology workup - daily labs - renally dose meds - avoid nephrotoxins - renal diet # Anemia: last hemoglobin at goal for ESRD, no indication for ESAs # HTN: UF as tolerated. BP reasonable # Secondary Hyperparathyroidism: continue home binders as needed # Chest Pain: management per primary/cardiology, history of CAD with stent placement in 2012. Per history, pain did not occur on HD but HD remains risk factor for cardiac stress. Follows with Dr. Gonzalez outpatient
--- NOTE | 2021-01-04 12:25 | Consultation ---
History of Present Illness Consult date: 01/04/21 Consult reason: chest pain History of present illness: Patient is a 60-year-old woman with end-stage renal disease on hemodialysis, referred to the emergency room for chest pain evaluation. She states that she had some left-sided chest pain which occurred at rest, associated with some shortness of breath, in the emergency room ECG was normal sinus rhythm with no ST or T wave abnormalities, normal ECG. Chest x-ray revealed a normal-sized cardiac silhouette and clear lungs. The troponin levels x3 were negative. She was referred for a Lexiscan thallium stress test which has been completed, results are pending. The patient gives a history of coronary artery disease and states that she had a coronary stent implantation in 2008, but there are no records available to review the details of this coronary intervention. An echocardiogram done in this hospital just 3 months ago reported normal left ventricular systolic funct ion with ejection fraction 55 to 60%. Past History Past Medical History: arthritis, CAD (With AR in 2011), COPD, dialysis, ESRD, GERD, hypertension Past Surgical History: cholecystectomy, PTCA (stent placement in 2012), Other (A-V fistula placement. Gastric bypass in 2013.) Social history: no significant social history Family history: no significant family history Medications and Allergies Allergies Allergy/AdvReac Type Severity Reaction Status Date / Time Penicillins Allergy Severe Anaphylaxis Verified 01/03/21 13:23 Calcium Channel Blocking Allergy Unknown Unknown Verified 01/03/21 13:23 Agent Dilt nifedipine Allergy Unknown Unknown Verified 01/03/21 13:23 JOHN Inhibitors AdvReac Unknown Unknown Verified 01/03/21 13:23 Iodinated Contrast Media AdvReac Unknown Unknown Verified 01/03/21 13:23 Home Medications Medication Instructions Recorded Confirmed Last Taken Type Promethazine [Phenergan SUPPOS] 25 mg MD Q6HR PRN #5 supp.rect 04/03/19 10/04/20 06/29/20 09:00 Rx Metoclopramide HCl [Reglan TAB] 10 mg PO TIDAC #30 tablet 04/09/19 10/04/20 Unknown Rx Aspirin 81 mg PO DAILY 07/20/20 10/04/20 07/19/20 17:00 History Calcitriol 0.5 mcg PO BID 07/20/20 10/04/20 07/19/20 17:00 History Calcium Acetate 667 mg PO AC 07/20/20 10/04/20 07/19/20 17:00 History Cyclobenzaprine 10 mg PO BID PRN 07/20/20 10/04/20 Unknown History HYDROcodone/APAP 7.5-325 [[place] 1 each PO Q6HR PRN #40 tablet 07/20/20 10/04/20 Unknown Rx 7.5-325 mg TAB] Montelukast 10 mg PO DAILY PRN 07/20/20 10/04/20 Unknown History Nitroglycerin 0.4 mg SUBLINGUAL PRN PRN 07/20/20 10/04/20 Unknown History Renvela 800 mg PO AC 07/20/20 10/04/20 07/19/20 17:00 History Rosuvastatin (Nf) 5 mg PO DAILY 07/20/20 10/04/20 07/19/20 09:00 History Sodium Bicarbonate 10 gm PO BID 07/20/20 10/04/20 07/18/20 17:00 History Symbicort 160-4.5 Mcg Inhaler 2 puff INHALATION BID PRN 07/20/20 10/04/20 07/17/20 09:00 History Vitamin D2 2,000 mg PO DAILY 07/20/20 10/04/20 07/16/20 09:00 History Zolpidem 5 mg PO HS 07/20/20 10/04/20 07/19/20 21:00 History hydrALAZINE 25 mg PO BID 07/20/20 10/04/20 07/19/20 09:00 History Pantoprazole 40 mg PO DAILY #30 01/04/21 Unknown Rx Active Meds: Active Medications Acetaminophen (Acetaminophen 325 Mg Tab) 650 mg PO Q4H PRN PRN Reason: Pain MILD(1-3)/Fever >100.5/BROWN Arformoterol Tartrate (Arformoterol 15 Mcg/2 Ml Nebu) 15 mcg IH Q12HRT [facility] Aspirin (Aspirin Ec 325 Mg Tab) 325 mg PO QDAY THERESE Last Admin: 01/04/21 09:52 Dose: Not Given Documented by: Atorvastatin Calcium (Atorvastatin 10 Mg Tab) 10 mg PO QHS THERESE Budesonide (Budesonide 0.5 Mg/2 Ml Nebu) 1 mg IH Q12HRT THERESE Calcitriol (Calcitriol 0.5 Mcg Cap) 0.5 mcg PO BID THERESE Last Admin: 01/04/21 09:53 Dose: Not Given Documented by: Cholecalciferol (Cholecalciferol (Vit D3) 1000 Unit (25 Mcg) Tab) 2,000 unit PO DAILY [facility] Last Admin: 01/04/21 09:53 Dose: Not Given Documented by: Heparin Sodium (Porcine) (Heparin 5,000 Unit/1 Ml Vial) 5,000 unit SUB-Q Q8HR [facility] Last Admin: 01/04/21 06:55 Dose: 5,000 unit Documented by: Hydralazine HCl (Hydralazine 25 Mg Tab) 25 mg PO BID [facility] Last Admin: 01/04/21 09:52 Dose: Not Given Documented by: Magnesium Hydroxide (Magnesium Hydroxide (Mom) Oral Liqd Udc) 30 ml PO Q4H PRN PRN Reason: Constipation Metoclopramide HCl (Metoclopramide 10 Mg Tab) 5 mg PO TIDAC [facility] Last Admin: 01/04/21 09:51 Dose: Not Given Documented by: Morphine Sulfate (Morphine 4 Mg/1 Ml Inj) 2 mg IV Q5MIN PRN PRN Reason: Chest Pain Nitroglycerin (Nitroglycerin 0.4 Mg Tab Subl) 0.4 mg SL Q5M PRN PRN Reason: Chest Pain Ondansetron HCl (Ondansetron 4 Mg/2 Ml Inj) 4 mg IV Q8H PRN PRN Reason: Nausea And Vomiting Pantoprazole Sodium (Pantoprazole 40 Mg Tab) 40 mg PO DAILY [facility] Last Admin: 01/04/21 09:53 Dose: Not Given Documented by: Promethazine HCl (Promethazine 25 Mg Rect Supp) 25 mg MD Q6HR PRN PRN Reason: Vomiting Sevelamer Carbonate (Sevelamer Carbonate 800 Mg Tab) 800 mg PO AC [facility] Last Admin: 01/04/21 09:51 Dose: Not Given Documented by: Sodium Bicarbonate (Sodium Bicarbonate 650 Mg Tab) 650 mg PO BID [facility] Last Admin: 01/04/21 09:53 Dose: Not Given Documented by: Sodium Chloride (Sodium Chloride 0.9% 10 Ml Flush Syringe) 10 ml IV BID [facility] Last Admin: 01/04/21 09:52 Dose: 10 ml Documented by: Sodium Chloride (Sodium Chloride 0.9% 10 Ml Flush Syringe) 10 ml IV PRN PRN PRN Reason: LINE FLUSH Tramadol HCl (Tramadol 50 Mg Tab) 50 mg PO Q6H PRN PRN Reason: Pain, Moderate (4-6) Zolpidem Tartrate (Zolpidem 5 Mg Tab) 5 mg PO QHS [facility] Review of Systems Cardiovascular: chest pain, shortness of breath, no orthopnea, no palpitations, no rapid/irregular heart beat, no edema, no syncope, no lightheadedness Physical Examination Vital Signs Temp Pulse Resp BP Pulse Ox 97.8 F 99 H 20 91/56 99 01/03/21 13:22 01/03/21 13:22 01/03/21 13:22 01/03/21 13:22 01/03/21 13:22 General appearance: no acute distress HEENT: Positive: PERRL Neck: Positive: neck supple Cardiac: Positive: Reg Rate and Rhythm Lungs: Positive: clear to auscultation Neuro: Positive: Grossly Intact Abdomen: Positive: Soft Female genitourinary: deferred Skin: Positive: Clear Extremities: Absent: edema Results 01/04/21 05:46 01/04/21 05:46 Cardiac Enzymes 01/03/21 Range/Units 14:01 AST 26 (5-40) units/L Coagulation 01/04/21 Range/Units 05:46 PT 13.5 (12.2-14.9) Sec. INR 1.04 (0.87-1.13) Lipids 01/04/21 Range/Units 05:46 Triglycerides 61 (2-149) mg/dL Cholesterol 150 (50-199) mg/dL HDL Cholesterol 80 H (40-59) mg/dL Cholesterol/HDL Ratio 1.87 % CBC 01/03/21 01/04/21 Range/Units 14:01 05:46 WBC 9.4 9.0 (4.5-11.0) K/mm3 RBC 3.99 3.84 (3.65-5.03) M/mm3 Hgb 12.5 11.8 (10.1-14.3) gm/dl Hct 38.4 36.0 (30.3-42.9) % Plt Count 172 184 (140-440) K/mm3 Lymph # (Auto) 1.4 1.6 (1.2-5.4) K/mm3 [place] # (Auto) 0.8 0.8 (0.0-0.8) K/mm3 Eos # (Auto) 0.9 H 0.9 H (0.0-0.4) K/mm3 Baso # (Auto) 0.1 0.1 (0.0-0.1) K/mm3 Comprehensive Metabolic Panel 01/03/21 01/04/21 Range/Units 14:01 05:46 Sodium 132 L 135 L (137-145) mmol/L Potassium 3.7 4.3 (3.6-5.0) mmol/L Chloride 96.1 L 95.7 L (98-107) mmol/L Carbon Dioxide 20 L 25 (22-30) mmol/L BUN 22 H 34 H (7-17) mg/dL Creatinine 4.8 H 6.4 H (0.6-1.2) mg/dL Glucose 66 83 (65-100) mg/dL Calcium 10.8 H 10.5 H (8.4-10.2) mg/dL AST 26 (5-40) units/L ALT 16 (7-56) units/L Alkaline Phosphatase 75 (35-129) units/L Total Protein 7.6 (6.3-8.2) g/dL Albumin 3.7 L (3.9-5) g/dL EKG interpretations - Telemetry EKG Rhythm: Sinus Rhythm Assessment and Plan - Patient Problems (1) Chest pain Current Visit: Yes Status: Acute Plan to address problem: Patient was admitted with atypical, nonexertional chest pain. Serial ECGs are normal, serial troponin levels are normal, she has completed a Lexiscan thallium stress test, results are pending.
[2021-01-04] MEDS: ARFORMOTEROL 15 MCG/2 ML NEBU IH SCH ×2 (17:16→20:28)
[2021-01-04] MEDS: BUDESONIDE 0.5 MG/2 ML NEBU IH SCH (20:28)
[2021-01-04] MEDS: ZOLPIDEM 5 MG TAB PO SCH (21:15)
[2021-01-04] MEDS: predniSONE 50 MG TAB PO SCH ×2 (21:22→22:34)
[2021-01-04] MEDS ORDERED: SODIUM CHLORIDE 0.9% 100 ML IV PRN (21:35)
[2021-01-04] MEDS ORDERED: ZOLPIDEM 5 MG PO SCH (22:00)
[2021-01-05] MEDS: predniSONE 50 MG TAB PO SCH ×4 (02:48→17:20)
[2021-01-05] MEDS: HEPARIN 5,000 UNIT/1 ML VIAL SUB-Q SCH ×3 (05:58→22:03)
[2021-01-05] MEDS: ARFORMOTEROL 15 MCG/2 ML NEBU IH SCH ×2 (07:46→20:34)
[2021-01-05] MEDS: BUDESONIDE 0.5 MG/2 ML NEBU IH SCH ×2 (07:46→20:34)
[2021-01-05] MEDS: SEVELAMER CARBONATE 800 MG TAB PO SCH ×3 (09:24→17:20)
[2021-01-05] MEDS: ASPIRIN EC 325 MG TAB PO SCH ×2 (09:24→10:57)
[2021-01-05] MEDS: METOCLOPRAMIDE 10 MG TAB PO SCH ×3 (09:24→17:20)
[2021-01-05] MEDS: CALCITRIOL 0.5 MCG CAP PO SCH ×3 (09:24→21:58)
[2021-01-05] MEDS: PANTOPRAZOLE 40 MG TAB PO SCH ×2 (09:24→10:57)
[2021-01-05] MEDS: hydrALAZINE 25 MG TAB PO SCH ×2 (09:24→21:58)
[2021-01-05] MEDS: SODIUM BICARBONATE 650 MG TAB PO SCH ×3 (09:25→21:58)
[2021-01-05] MEDS: CHOLECALCIFEROL (VIT D3) 1000 UNIT (25 mcg) TAB PO SCH ×2 (09:25→10:57)
--- NOTE | 2021-01-05 09:55 | Progress Note ---
Assessment and Plan - Patient Problems (1) Chest pain Current Visit: Yes Status: Acute Plan to address problem: The patient gives a history of coronary artery disease and states that she had a coronary stent implantation in 2008, but there are no records available to review the details of this coronary intervention. An echocardiogram done in this hospital just 3 months ago reported normal left ventricular systolic function with ejection fraction 55 to 60%. Patient with ESRD and will dialyze today. Will plan for a cardiac catheterization on tomorrow for abnormal MPI and chest pain. Subjective Date of service: 01/05/21 Interval history: Patient is resting in bed comfortably. Denies chest pain and denies unusual shortness of breath. She is planned for dialysis today. Objective Vital Signs Temp Pulse Pulse Pulse Resp Resp Resp 01/05/21 09:24 69 01/05/21 07:55 65 68 18 18 01/05/21 07:32 97.6 F 69 16 01/05/21 03:48 97.9 F 73 16 01/04/21 22:45 97.4 F L 81 16 01/04/21 21:13 82 01/04/21 20:28 82 20 01/04/21 19:56 01/04/21 19:47 96.4 F L 77 16 01/04/21 16:49 97.8 F 93 H 16 01/04/21 14:04 79 01/04/21 10:28 01/04/21 10:25 BP BP Pulse Ox 01/05/21 09:24 112/55 01/05/21 07:55 01/05/21 07:32 112/55 99 01/05/21 03:48 108/53 100 01/04/21 22:45 101/59 100 01/04/21 21:13 87/42 01/04/21 20:28 01/04/21 19:56 87/42 01/04/21 19:47 82/26 100 01/04/21 16:49 108/54 94 01/04/21 14:04 141/81 01/04/21 10:28 149/71 01/04/21 10:25 150/58 - Physical Examination General: No Apparent Distress HEENT: Positive: PERRL Neck: Positive: neck supple Cardiac: Positive: Reg Rate and Rhythm Lungs: Positive: Normal Breath Sounds Neuro: Positive: Grossly Intact Abdomen: Positive: Soft Extremities: Absent: edema
--- NOTE | 2021-01-05 11:30 | Progress Note ---
Assessment and Plan This is a 60 year old woman who presents with chest pain # ESRD: HD today per MWF schedule - daily labs - renally dose meds - avoid nephrotoxins - renal diet # Anemia: last hemoglobin at goal for ESRD, no indication for ESAs # HTN: UF as tolerated. BP reasonable # Secondary Hyperparathyroidism: continue home binders as needed # Chest Pain: management per primary/cardiology, history of CAD with stent placement in 2012. Per history, pain did not occur on HD but HD remains risk factor for cardiac stress. Follows with Dr. Gonzalez outpatient. Note plans for cardiac cath Subjective Date of service: 01/05/21 Interval history: No acute issues noted, no chest pain this AM Objective - Exam Narrative Exam: Constitutional: no acute distress Head: NC/AT Neck: supple Lungs: clear to auscultation CV: RRR, no M/R/G Abdomen: soft, non-tender, bowel sounds present Back: nontender Extremities: no edema, pulses WNL Skin: intact Neuro: no focal deficits, alert and oriented x4 - Vital Signs Vital signs: Vital Signs - 12hr 01/05/21 01/05/21 01/05/21 03:48 07:32 07:55 Temperature 97.9 F 97.6 F Pulse Rate 73 69 Pulse Rate [ 68 Anterior Bilateral Throughout] Respiratory 16 16 Rate Respiratory 18 Rate [Anterior Bilateral Throughout] Blood Pressure 108/53 112/55 O2 Sat by Pulse 100 99 Oximetry 01/05/21 01/05/21 09:24 10:44 Temperature 98.0 F Pulse Rate 69 111 H Pulse Rate [ Anterior Bilateral Throughout] Respiratory 18 Rate Respiratory Rate [Anterior Bilateral Throughout] Blood Pressure 112/55 121/70 O2 Sat by Pulse 97 Oximetry - Lab 01/04/21 05:46 01/04/21 05:46 Most recent lab results Calcium 10.5 mg/dL (8.4-10.2) H 01/04/21 05:46 Medications & Allergies - Medications Allergies/Adverse Reactions: Allergies Penicillins Allergy (Severe, Verified 01/03/21 13:23) Anaphylaxis Calcium Channel Blocking Agent Dilt Allergy (Unknown, Verified 01/03/21 13:23) Unknown nifedipine Allergy (Unknown, Verified 01/03/21 13:23) Unknown JOHN Inhibitors Adverse Reaction (Unknown, Verified 01/03/21 13:23) Unknown Iodinated Contrast Media Adverse Reaction (Unknown, Verified 01/03/21 13:23) Unknown Home Medications: Home Medications Medication Instructions Recorded Confirmed Last Taken Type Renvela 800 mg PO AC 07/20/20 01/05/21 07/19/20 17:00 History Symbicort 160-4.5 Mcg Inhaler 2 puff INHALATION BID PRN 07/20/20 01/05/21 07/17/20 09:00 History hydrALAZINE 25 mg PO BID 07/20/20 01/05/21 07/19/20 09:00 History AtorvaSTATin [Lipitor] 10 mg PO QHS 01/05/21 01/05/21 Unknown History Calcium Acetate [Phoslo] 667 mg PO DAILY 01/05/21 01/05/21 Unknown History Montelukast Sodium 10 mg PO DAILY 01/05/21 01/05/21 Unknown History Pantoprazole [Protonix] 40 mg PO QDAY 01/05/21 01/05/21 Unknown History Rosuvastatin Calcium 5 mg PO DAILY 01/05/21 01/05/21 Unknown History Valsartan [Diovan] 160 mg PO QDAY 01/05/21 01/05/21 Unknown History polyethylene glycoL 3350 [Miralax 17 gm PO QDAY 01/05/21 01/05/21 Unknown History 3350] Active Medications: Generic Name Dose Route Start Last Admin Trade Name Freq PRN Reason Stop Dose Admin Acetaminophen 650 mg 01/03/21 22:13 Acetaminophen 325 Mg Tab PO Q4H PRN Pain MILD(1-3)/Fever >100.5/BROWN Arformoterol Tartrate 15 mcg 01/04/21 08:00 01/05/21 07:46 Arformoterol 15 Mcg/2 Ml Nebu IH 15 mcg Q12HRT THERESE Administration Aspirin 325 mg 01/04/21 10:00 01/05/21 10:57 Aspirin Ec 325 Mg Tab PO 325 mg QDAY THERESE Administration Atorvastatin Calcium 10 mg 01/04/21 22:00 01/04/21 21:15 Atorvastatin 10 Mg Tab PO 10 mg QHS THERESE Administration Budesonide 0.5 mg 01/04/21 17:14 01/05/21 07:46 Budesonide 0.5 Mg/2 Ml Nebu IH 0.5 mg Q12HRT THERESE Administration Calcitriol 0.5 mcg 01/04/21 10:00 01/05/21 10:57 Calcitriol 0.5 Mcg Cap PO 0.5 mcg BID THERESE Administration Cholecalciferol 2,000 unit 01/04/21 10:00 01/05/21 10:57 Cholecalciferol (Vit D3) 1000 Unit (25 Mcg) Tab PO 2,000 unit DAILY THERESE Administration Heparin Sodium (Porcine) 5,000 unit 01/04/21 06:00 01/05/21 05:58 Heparin 5,000 Unit/1 Ml Vial SUB-Q 5,000 unit Q8HR THERESE Administration Hydralazine HCl 25 mg 01/04/21 10:00 01/05/21 09:24 Hydralazine 25 Mg Tab PO 25 mg BID THERESE Administration Sodium Chloride 100 mls @ 999 mls/hr 01/04/21 21:35 Nacl 0.9% IV LUIS E PRN Hypotension Magnesium Hydroxide 30 ml 01/03/21 22:13 Magnesium Hydroxide (Mom) Oral Liqd Udc PO Q4H PRN Constipation Metoclopramide HCl 5 mg 01/04/21 07:30 01/05/21 11:01 Metoclopramide 10 Mg Tab PO 5 mg TIDAC THERESE Administration Morphine Sulfate 2 mg 01/03/21 22:13 Morphine 4 Mg/1 Ml Inj IV Q5MIN PRN Chest Pain Nitroglycerin 0.4 mg 01/03/21 22:13 Nitroglycerin 0.4 Mg Tab Subl SL Q5M PRN Chest Pain Ondansetron HCl 4 mg 01/03/21 22:13 Ondansetron 4 Mg/2 Ml Inj IV Q8H PRN Nausea And Vomiting Pantoprazole Sodium 40 mg 01/04/21 10:00 01/05/21 10:57 Pantoprazole 40 Mg Tab PO 40 mg DAILY THERESE Administration Prednisone 50 mg 01/04/21 18:00 01/05/21 11:01 Prednisone 50 Mg Tab PO 50 mg Q6HR THERESE Administration Promethazine HCl 25 mg 01/04/21 01:24 Promethazine 25 Mg Rect Supp HI Q6HR PRN Vomiting Sevelamer Carbonate 800 mg 01/04/21 07:30 01/05/21 10:58 Sevelamer Carbonate 800 Mg Tab PO 800 mg AC THERESE Administration Sodium Bicarbonate 650 mg 01/04/21 10:00 01/05/21 10:57 Sodium Bicarbonate 650 Mg Tab PO 650 mg BID THERESE Administration Sodium Chloride 10 ml 01/04/21 10:00 01/05/21 09:25 Sodium Chloride 0.9% 10 Ml Flush Syringe IV 10 ml BID THERESE Administration Sodium Chloride 10 ml 01/03/21 22:13 Sodium Chloride 0.9% 10 Ml Flush Syringe IV PRN PRN LINE FLUSH Tramadol HCl 50 mg 01/03/21 22:13 Tramadol 50 Mg Tab PO Q6H PRN Pain, Moderate (4-6) Zolpidem Tartrate 5 mg 01/04/21 22:00 01/04/21 21:15 Zolpidem 5 Mg Tab PO 5 mg QHS THERESE Administration
--- NOTE | 2021-01-05 11:49 | Progress Note ---
Assessment and Plan Assessment and plan: Patient is a 60-year-old woman with end-stage renal disease on hemodialysis, referred to the emergency room for chest pain evaluation. She states that she had some left-sided chest pain which occurred at rest, associated with some shortness of breath, in the emergency room ECG was normal sinus rhythm with no ST or T wave abnormalities, normal ECG. Chest x-ray revealed a normal-sized cardiac silhouette and clear lungs. The troponin levels x3 were negative. She was referred for a Lexiscan thallium stress test which was abnormal The patient gave history of coronary artery disease and states that she had a coronary stent implantation in 2008, but there are no records available to review the details of this coronary intervention. An echocardiogram done in this hospital just 3 months ago reported normal left ventricular systolic function with ejection fraction 55 to 60%. Cardiology recommended for cardiac catheterization Coronary artery disease. Chest pain ESRD on hemodialysis. Hypertension. 01/05/2021. Cardiology plans for a cardiac catheterization on tomorrow for abnormal MPI and chest pain. Nephrology following for hemodialysis. Patient underwent hemodialysis today. - Patient Problems (1) GERD (gastroesophageal reflux disease) Current Visit: Yes Status: Acute (2) Chest pain Current Visit: Yes Status: Acute History Interval history: No new issues overnight. Hospitalist Physical - Constitutional Vitals: Temp Pulse Resp BP Pulse Ox 98.0 F 111 H 18 121/70 97 01/05/21 10:44 01/05/21 10:44 01/05/21 10:44 01/05/21 10:44 01/05/21 10:44 General appearance: Present: no acute distress - EENT Eyes: Present: PERRL, EOM intact ENT: hearing intact, clear oral mucosa, dentition normal - Neck Neck: Present: supple, normal ROM - Respiratory Respiratory effort: normal Respiratory: bilateral: CTA - Cardiovascular Rhythm: regular Heart Sounds: Present: S1 & S2. Absent: gallop, rub - Extremities Extremities: no ischemia, No edema, Full ROM - Abdominal General gastrointestinal: soft, non-tender, non-distended, normal bowel sounds - Integumentary Integumentary: Present: clear, warm, dry - Neurologic Neurologic: CNII-XII intact, moves all extremities HEART Score - HEART Score EKG: Non-specific Age: 45-65 Risk factors: 1-2 risk factors Troponin: Troponin T 0.024 ng/mL (0.00-0.029) 01/04/21 05:46 Troponin: < normal limit Results - Labs CBC & Chem 7: 01/04/21 05:46 01/04/21 05:46 Labs: Laboratory Last Values WBC 9.0 K/mm3 (4.5-11.0) 01/04/21 05:46 RBC 3.84 M/mm3 (3.65-5.03) 01/04/21 05:46 Hgb 11.8 gm/dl (10.1-14.3) 01/04/21 05:46 Hct 36.0 % (30.3-42.9) 01/04/21 05:46 MCV 94 fl (79-97) 01/04/21 05:46 MCH 31 pg (28-32) 01/04/21 05:46 MCHC 33 % (30-34) 01/04/21 05:46 RDW 15.4 % (13.2-15.2) H 01/04/21 05:46 Plt Count 184 K/mm3 (140-440) 01/04/21 05:46 Lymph % (Auto) 18.2 % (13.4-35.0) 01/04/21 05:46 Ida % (Auto) 9.1 % (0.0-7.3) H 01/04/21 05:46 Eos % (Auto) 10.0 % (0.0-4.3) H 01/04/21 05:46 Baso % (Auto) 0.8 % (0.0-1.8) 01/04/21 05:46 Lymph # (Auto) 1.6 K/mm3 (1.2-5.4) 01/04/21 05:46 Ida # (Auto) 0.8 K/mm3 (0.0-0.8) 01/04/21 05:46 Eos # (Auto) 0.9 K/mm3 (0.0-0.4) H 01/04/21 05:46 Baso # (Auto) 0.1 K/mm3 (0.0-0.1) 01/04/21 05:46 Seg Neutrophils % 61.9 % (40.0-70.0) 01/04/21 05:46 Seg Neutrophils # 5.6 K/mm3 (1.8-7.7) 01/04/21 05:46 PT 13.5 Sec. (12.2-14.9) 01/04/21 05:46 INR 1.04 (0.87-1.13) 01/04/21 05:46 Sodium 135 mmol/L (137-145) L 01/04/21 05:46 Potassium 4.3 mmol/L (3.6-5.0) 01/04/21 05:46 Chloride 95.7 mmol/L (98-107) L 01/04/21 05:46 Carbon Dioxide 25 mmol/L (22-30) 01/04/21 05:46 Anion Gap 19 mmol/L 01/04/21 05:46 BUN 34 mg/dL (7-17) H 01/04/21 05:46 Creatinine 6.4 mg/dL (0.6-1.2) H 01/04/21 05:46 Estimated GFR 8 ml/min 01/04/21 05:46 BUN/Creatinine Ratio 5 % 01/04/21 05:46 Glucose 83 mg/dL (65-100) 01/04/21 05:46 POC Glucose 116 mg/dL (70-105) H 01/05/21 04:51 Calcium 10.5 mg/dL (8.4-10.2) H 01/04/21 05:46 Total Bilirubin 0.30 mg/dL (0.1-1.2) 01/03/21 14:01 AST 26 units/L (5-40) 01/03/21 14:01 ALT 16 units/L (7-56) 01/03/21 14:01 Alkaline Phosphatase 75 units/L (35-129) 01/03/21 14:01 Troponin T 0.024 ng/mL (0.00-0.029) 01/04/21 05:46 Total Protein 7.6 g/dL (6.3-8.2) 01/03/21 14:01 Albumin 3.7 g/dL (3.9-5) L 01/03/21 14:01 Albumin/Globulin Ratio 0.9 % 01/03/21 14:01 Triglycerides 61 mg/dL (2-149) 01/04/21 05:46 Cholesterol 150 mg/dL (50-199) 01/04/21 05:46 LDL Cholesterol Direct 64 mg/dL (50-130) 01/04/21 05:46 HDL Cholesterol 80 mg/dL (40-59) H 01/04/21 05:46 Cholesterol/HDL Ratio 1.87 % 01/04/21 05:46 Burnett/IV: Voiding Method Toilet Active Medications - Current Medications Current Medications: Generic Name Dose Route Start Last Admin Trade Name Freq PRN Reason Stop Dose Admin Acetaminophen 650 mg 01/03/21 22:13 Acetaminophen 325 Mg Tab PO Q4H PRN Pain MILD(1-3)/Fever >100.5/BROWN Arformoterol Tartrate 15 mcg 01/04/21 08:00 01/05/21 07:46 Arformoterol 15 Mcg/2 Ml Nebu IH 15 mcg Q12HRT THERESE Administration Aspirin 325 mg 01/04/21 10:00 01/05/21 10:57 Aspirin Ec 325 Mg Tab PO 325 mg QDAY THERESE Administration Atorvastatin Calcium 10 mg 01/04/21 22:00 01/04/21 21:15 Atorvastatin 10 Mg Tab PO 10 mg QHS THERESE Administration Budesonide 0.5 mg 01/04/21 17:14 01/05/21 07:46 Budesonide 0.5 Mg/2 Ml Nebu IH 0.5 mg Q12HRT THERESE Administration Calcitriol 0.5 mcg 01/04/21 10:00 01/05/21 10:57 Calcitriol 0.5 Mcg Cap PO 0.5 mcg BID THERESE Administration Cholecalciferol 2,000 unit 01/04/21 10:00 01/05/21 10:57 Cholecalciferol (Vit D3) 1000 Unit (25 Mcg) Tab PO 2,000 unit DAILY THERESE Administration Heparin Sodium (Porcine) 5,000 unit 01/04/21 06:00 01/05/21 05:58 Heparin 5,000 Unit/1 Ml Vial SUB-Q 5,000 unit Q8HR THERESE Administration Hydralazine HCl 25 mg 01/04/21 10:00 01/05/21 09:24 Hydralazine 25 Mg Tab PO 25 mg BID THERESE Administration Sodium Chloride 100 mls @ 999 mls/hr 01/04/21 21:35 Nacl 0.9% IV LUIS E PRN Hypotension Magnesium Hydroxide 30 ml 01/03/21 22:13 Magnesium Hydroxide (Mom) Oral Liqd Udc PO Q4H PRN Constipation Metoclopramide HCl 5 mg 01/04/21 07:30 01/05/21 11:01 Metoclopramide 10 Mg Tab PO 5 mg TIDAC THERESE Administration Morphine Sulfate 2 mg 01/03/21 22:13 Morphine 4 Mg/1 Ml Inj IV Q5MIN PRN Chest Pain Nitroglycerin 0.4 mg 01/03/21 22:13 Nitroglycerin 0.4 Mg Tab Subl SL Q5M PRN Chest Pain Ondansetron HCl 4 mg 01/03/21 22:13 Ondansetron 4 Mg/2 Ml Inj IV Q8H PRN Nausea And Vomiting Pantoprazole Sodium 40 mg 01/04/21 10:00 01/05/21 10:57 Pantoprazole 40 Mg Tab PO 40 mg DAILY THERESE Administration Prednisone 50 mg 01/05/21 18:00 Prednisone 50 Mg Tab PO 01/06/21 06:01 Q6HR THERESE Promethazine HCl 25 mg 01/04/21 01:24 Promethazine 25 Mg Rect Supp LA Q6HR PRN Vomiting Sevelamer Carbonate 800 mg 01/04/21 07:30 01/05/21 10:58 Sevelamer Carbonate 800 Mg Tab PO 800 mg AC THERESE Administration Sodium Bicarbonate 650 mg 01/04/21 10:00 01/05/21 10:57 Sodium Bicarbonate 650 Mg Tab PO 650 mg BID THERESE Administration Sodium Chloride 10 ml 01/04/21 10:00 01/05/21 09:25 Sodium Chloride 0.9% 10 Ml Flush Syringe IV 10 ml BID THERESE Administration Sodium Chloride 10 ml 01/03/21 22:13 Sodium Chloride 0.9% 10 Ml Flush Syringe IV PRN PRN LINE FLUSH Tramadol HCl 50 mg 01/03/21 22:13 Tramadol 50 Mg Tab PO Q6H PRN Pain, Moderate (4-6) Zolpidem Tartrate 5 mg 01/04/21 22:00 01/04/21 21:15 Zolpidem 5 Mg Tab PO 5 mg QHS THERESE Administration
[2021-01-05 16:45] LABS: Hepatitis B Surface Antigen Non-Reactive (Negative); Hepatitis C Virus Antibody Non-Reactive (NonReactive)
[2021-01-05] MEDS: ZOLPIDEM 5 MG TAB PO SCH (21:58)
[2021-01-06] MEDS: predniSONE 50 MG TAB PO SCH ×2 (00:57→05:16)
[2021-01-06] MEDS: HEPARIN 5,000 UNIT/1 ML VIAL SUB-Q SCH ×3 (05:17→23:06)
[2021-01-06] MEDS: SEVELAMER CARBONATE 800 MG TAB PO SCH ×3 (08:23→16:31)
[2021-01-06] MEDS: ARFORMOTEROL 15 MCG/2 ML NEBU IH SCH ×2 (09:05→23:32)
[2021-01-06] MEDS: BUDESONIDE 0.5 MG/2 ML NEBU IH SCH ×2 (09:05→23:32)
[2021-01-06] MEDS ORDERED: SODIUM CHLORIDE 0.9% 500 ML 500 ML ONE (09:53)
[2021-01-06] MEDS: ASPIRIN EC 325 MG TAB PO SCH (10:32)
--- NOTE | 2021-01-06 10:49 | Event Note ---
Date: 01/06/21 The patient is awaiting a diagnostic cardiac catheterization for further assessment of chest pain and abnormal thallium stress test. Some benefits have been discussed with the patient and she consents to proceed.
[2021-01-06] MEDS ORDERED: diphenhydrAMINE 50 MG/ML VIAL ONE ×2 (11:28→12:25)
[2021-01-06] MEDS ORDERED: HYDROCORTISONE SOD SUCC 100 MG/2 ML VIAL ONE ×2 (11:28→12:34)
--- NOTE | 2021-01-06 11:29 | Progress Note ---
Assessment and Plan Assessment and plan: Patient is a 60-year-old woman with end-stage renal disease on hemodialysis, referred to the emergency room for chest pain evaluation. She states that she had some left-sided chest pain which occurred at rest, associated with some shortness of breath, in the emergency room ECG was normal sinus rhythm with no ST or T wave abnormalities, normal ECG. Chest x-ray revealed a normal-sized cardiac silhouette and clear lungs. The troponin levels x3 were negative. She was referred for a Lexiscan thallium stress test which was abnormal The patient gave history of coronary artery disease and states that she had a coronary stent implantation in 2008, but there are no records available to review the details of this coronary intervention. An echocardiogram done in this hospital just 3 months ago reported normal left ventricular systolic function with ejection fraction 55 to 60%. Cardiology recommended for cardiac catheterization Coronary artery disease. Chest pain ESRD on hemodialysis. Hypertension. 01/05/2021. Cardiology plans for a cardiac catheterization on tomorrow for abnormal MPI and chest pain. Nephrology following for hemodialysis. Patient underwent hemodialysis today. 01/06/2021. Patient undergo cardiac catheterization today. Await results and further recommendations per cardiology. Continue hemodialysis per nephrology - Patient Problems (1) GERD (gastroesophageal reflux disease) Current Visit: Yes Status: Acute (2) Chest pain Current Visit: Yes Status: Acute History Interval history: No new issues overnight. Hospitalist Physical - Constitutional Vitals: Temp Pulse Resp BP Pulse Ox 98.3 F 73 18 124/63 98 01/06/21 07:56 01/06/21 09:35 01/06/21 09:35 01/06/21 07:56 01/06/21 07:56 General appearance: Present: no acute distress - EENT Eyes: Present: PERRL, EOM intact ENT: hearing intact, clear oral mucosa, dentition normal - Neck Neck: Present: supple, normal ROM - Respiratory Respiratory effort: normal Respiratory: bilateral: CTA - Cardiovascular Rhythm: regular Heart Sounds: Present: S1 & S2. Absent: gallop, rub - Extremities Extremities: no ischemia, No edema, Full ROM - Abdominal General gastrointestinal: soft, non-tender, non-distended, normal bowel sounds - Integumentary Integumentary: Present: clear, warm, dry - Neurologic Neurologic: CNII-XII intact, moves all extremities HEART Score - HEART Score EKG: Non-specific Age: 45-65 Risk factors: 1-2 risk factors Troponin: Troponin T 0.024 ng/mL (0.00-0.029) 01/04/21 05:46 Troponin: < normal limit Results - Labs CBC & Chem 7: 01/04/21 05:46 01/04/21 05:46 Labs: Laboratory Last Values WBC 9.0 K/mm3 (4.5-11.0) 01/04/21 05:46 RBC 3.84 M/mm3 (3.65-5.03) 01/04/21 05:46 Hgb 11.8 gm/dl (10.1-14.3) 01/04/21 05:46 Hct 36.0 % (30.3-42.9) 01/04/21 05:46 MCV 94 fl (79-97) 01/04/21 05:46 MCH 31 pg (28-32) 01/04/21 05:46 MCHC 33 % (30-34) 01/04/21 05:46 RDW 15.4 % (13.2-15.2) H 01/04/21 05:46 Plt Count 184 K/mm3 (140-440) 01/04/21 05:46 Lymph % (Auto) 18.2 % (13.4-35.0) 01/04/21 05:46 [place] % (Auto) 9.1 % (0.0-7.3) H 01/04/21 05:46 Eos % (Auto) 10.0 % (0.0-4.3) H 01/04/21 05:46 Baso % (Auto) 0.8 % (0.0-1.8) 01/04/21 05:46 Lymph # (Auto) 1.6 K/mm3 (1.2-5.4) 01/04/21 05:46 Weakley # (Auto) 0.8 K/mm3 (0.0-0.8) 01/04/21 05:46 Eos # (Auto) 0.9 K/mm3 (0.0-0.4) H 01/04/21 05:46 Baso # (Auto) 0.1 K/mm3 (0.0-0.1) 01/04/21 05:46 Seg Neutrophils % 61.9 % (40.0-70.0) 01/04/21 05:46 Seg Neutrophils # 5.6 K/mm3 (1.8-7.7) 01/04/21 05:46 PT 13.5 Sec. (12.2-14.9) 01/04/21 05:46 INR 1.04 (0.87-1.13) 01/04/21 05:46 Sodium 135 mmol/L (137-145) L 01/04/21 05:46 Potassium 4.3 mmol/L (3.6-5.0) 01/04/21 05:46 Chloride 95.7 mmol/L (98-107) L 01/04/21 05:46 Carbon Dioxide 25 mmol/L (22-30) 01/04/21 05:46 Anion Gap 19 mmol/L 01/04/21 05:46 BUN 34 mg/dL (7-17) H 01/04/21 05:46 Creatinine 6.4 mg/dL (0.6-1.2) H 01/04/21 05:46 Estimated GFR 8 ml/min 01/04/21 05:46 BUN/Creatinine Ratio 5 % 01/04/21 05:46 Glucose 83 mg/dL (65-100) 01/04/21 05:46 POC Glucose 136 mg/dL (70-105) H 01/06/21 05:30 Calcium 10.5 mg/dL (8.4-10.2) H 01/04/21 05:46 Total Bilirubin 0.30 mg/dL (0.1-1.2) 01/03/21 14:01 AST 26 units/L (5-40) 01/03/21 14:01 ALT 16 units/L (7-56) 01/03/21 14:01 Alkaline Phosphatase 75 units/L (35-129) 01/03/21 14:01 Troponin T 0.024 ng/mL (0.00-0.029) 01/04/21 05:46 Total Protein 7.6 g/dL (6.3-8.2) 01/03/21 14:01 Albumin 3.7 g/dL (3.9-5) L 01/03/21 14:01 Albumin/Globulin Ratio 0.9 % 01/03/21 14:01 Triglycerides 61 mg/dL (2-149) 01/04/21 05:46 Cholesterol 150 mg/dL (50-199) 01/04/21 05:46 LDL Cholesterol Direct 64 mg/dL (50-130) 01/04/21 05:46 HDL Cholesterol 80 mg/dL (40-59) H 01/04/21 05:46 Cholesterol/HDL Ratio 1.87 % 01/04/21 05:46 Hepatitis A IgM Ab Non-reactive (NonReactive) 01/05/21 15:59 Hep Bs Antigen Non-reactive (Negative) 01/05/21 15:59 Hep B Core IgM Ab Non-reactive (NonReactive) 01/05/21 15:59 Hepatitis C Antibody Non-reactive (NonReactive) 01/05/21 15:59 Burnett/IV: Voiding Method Toilet Active Medications - Current Medications Current Medications: Generic Name Dose Route Start Last Admin Trade Name Freq PRN Reason Stop Dose Admin Acetaminophen 650 mg 01/03/21 22:13 Acetaminophen 325 Mg Tab PO Q4H PRN Pain MILD(1-3)/Fever >100.5/BROWN Arformoterol Tartrate 15 mcg 01/04/21 08:00 01/06/21 09:05 Arformoterol 15 Mcg/2 Ml Nebu IH 15 mcg Q12HRT THERESE Administration Aspirin 325 mg 01/04/21 10:00 01/06/21 10:32 Aspirin Ec 325 Mg Tab PO 325 mg QDAY THERESE Administration Atorvastatin Calcium 10 mg 01/04/21 22:00 01/05/21 21:58 Atorvastatin 10 Mg Tab PO 10 mg QHS THERESE Administration Budesonide 0.5 mg 01/04/21 17:14 01/06/21 09:05 Budesonide 0.5 Mg/2 Ml Nebu IH 0.5 mg Q12HRT THERESE Administration Calcitriol 0.5 mcg 01/04/21 10:00 01/05/21 21:58 Calcitriol 0.5 Mcg Cap PO 0.5 mcg BID THERESE Administration Cholecalciferol 2,000 unit 01/04/21 10:00 01/05/21 10:57 Cholecalciferol (Vit D3) 1000 Unit (25 Mcg) Tab PO 2,000 unit DAILY THERESE Administration Heparin Sodium (Porcine) 5,000 unit 01/04/21 06:00 01/06/21 05:17 Heparin 5,000 Unit/1 Ml Vial SUB-Q 5,000 unit Q8HR THERESE Administration Hydralazine HCl 25 mg 01/04/21 10:00 01/05/21 21:58 Hydralazine 25 Mg Tab PO 25 mg BID THERESE Administration Sodium Chloride 100 mls @ 999 mls/hr 01/04/21 21:35 Nacl 0.9% IV LUIS E PRN Hypotension Magnesium Hydroxide 30 ml 01/03/21 22:13 Magnesium Hydroxide (Mom) Oral Liqd Udc PO Q4H PRN Constipation Metoclopramide HCl 5 mg 01/04/21 07:30 01/05/21 17:20 Metoclopramide 10 Mg Tab PO Not Given TIDAC THERESE Morphine Sulfate 2 mg 01/03/21 22:13 Morphine 4 Mg/1 Ml Inj IV Q5MIN PRN Chest Pain Nitroglycerin 0.4 mg 01/03/21 22:13 Nitroglycerin 0.4 Mg Tab Subl SL Q5M PRN Chest Pain Ondansetron HCl 4 mg 01/03/21 22:13 Ondansetron 4 Mg/2 Ml Inj IV Q8H PRN Nausea And Vomiting Pantoprazole Sodium 40 mg 01/04/21 10:00 01/05/21 10:57 Pantoprazole 40 Mg Tab PO 40 mg DAILY THERESE Administration Promethazine HCl 25 mg 01/04/21 01:24 Promethazine 25 Mg Rect Supp [place] Q6HR PRN Vomiting Sevelamer Carbonate 800 mg 01/04/21 07:30 01/06/21 08:23 Sevelamer Carbonate 800 Mg Tab PO Not Given AC THERESE Sodium Bicarbonate 650 mg 01/04/21 10:00 01/05/21 21:58 Sodium Bicarbonate 650 Mg Tab PO 650 mg BID THERESE Administration Sodium Chloride 10 ml 01/04/21 10:00 01/05/21 22:02 Sodium Chloride 0.9% 10 Ml Flush Syringe IV 10 ml BID THERESE Administration Sodium Chloride 10 ml 01/03/21 22:13 Sodium Chloride 0.9% 10 Ml Flush Syringe IV PRN PRN LINE FLUSH Tramadol HCl 50 mg 01/03/21 22:13 Tramadol 50 Mg Tab PO Q6H PRN Pain, Moderate (4-6) Zolpidem Tartrate 5 mg 01/04/21 22:00 01/05/21 21:58 Zolpidem 5 Mg Tab PO 5 mg QHS THERESE Administration
[2021-01-06] MEDS ORDERED: HEPARIN/NS 5000 UNIT/500ML 1,000 ML IR ONE (11:43)
[2021-01-06] MEDS ORDERED: fentaNYL 100 MCG/2 ML INJ ONE (11:43)
[2021-01-06] MEDS ORDERED: MIDAZOLAM 2 MG/2 ML INJ ONE (11:43)
[2021-01-06] MEDS ORDERED: LIDOCAINE (2%) 20 MG/1 ML VIAL 20 ML MDV INFILTRATI ONE (11:43)
[2021-01-06] MEDS ORDERED: VERAPAMIL 5 MG/2 ML INJ ONE (11:43)
[2021-01-06] MEDS ORDERED: NITROGLYCERIN SYRINGE 3 ML ONE ×2 (11:44→12:50)
[2021-01-06] MEDS ORDERED: diphenhydrAMINE 50 MG/ML VIAL IV NR (11:53)
[2021-01-06] MEDS: HEPARIN 10,000 UNITS/10 ML VIAL ONE ×3 (12:20→13:08)
[2021-01-06] MEDS ORDERED: HYDROCORTISONE SOD SUCC 100 MG/2 ML VIAL IV NR (12:30)
[2021-01-06] MEDS ORDERED: NITROGLYCERIN 600 MCG/3 ML SYRINGE INTRA-CORO ONE ×2 (12:45→12:49)
[2021-01-06] MEDS ORDERED: CLOPIDOGREL 300 MG TAB ONE (12:59)
[2021-01-06] MEDS ORDERED: HEPARIN 10,000 UNITS/10 ML VIAL ONE (13:05)
--- NOTE | 2021-01-06 13:23 | Event Note ---
Date: 01/06/21 Cardiac catheterization was completed via the right femoral approach, no complications. We found a greater than 99% stenosis of the distal LAD, we performed successful angioplasty with coronary stenting using drug-eluting stents. Excellent postprocedure result. Patient will be started on dual oral antiplatelet therapy with Plavix, and observed post intervention overnight. Anticipate discharge tomorrow after her routine hemodialysis.
--- NOTE | 2021-01-06 13:33 | Cardiac Catherization Report ---
CARDIAC CATHETERIZATION AND CORONARY ANGIOPLASTY REPORT REASON FOR PROCEDURE: The patient is a 60-year-old woman with end-stage renal disease, who presented to the hospital with chest pain. After a rule out MD protocol, a stress test revealed a reversible inferoapical defect, which prompted a recommendation for a cardiac catheterization. PROCEDURE: I was present for the entire procedure and supervised the moderate sedation protocol. The patient was prepped and draped in a sterile fashion after informed consent. The right femoral artery was entered using the Seldinger technique followed by placement of a 6-Chilean sheath. Selective left and right coronary angiography was performed using #4 right and left Anne catheters. The right Anne was used for left ventricular angiography. FINDINGS: HEMODYNAMICS: Left ventricular end-diastolic pressure was 22, following coronary angiography. Ascending aortic pressure was 130/63. There was no significant pressure gradient on pullback across the aortic valve. CORONARY ANGIOGRAPHY: The left main coronary artery was free of significant disease. The left anterior descending artery contained heavy calcification in its proximal to mid segment, associated with diffuse mild atherosclerosis. There was another, 20% luminal narrowing of the mid segment. Beyond the mid LAD, there was a long, 99% stenosis of the distal LAD just after the origin of a medium sized distal diagonal branch. This lesion led to a fairly large wraparound LAD. The circumflex system including a large anterolateral obtuse marginal, were free of significant disease. The right coronary artery was dominant and similarly free of significant disease. There was normal left ventricular systolic function with ejection fraction 55-60%. CORONARY ANGIOPLASTY: After review of the angiograms, we proceeded with ad hoc coronary intervention to the distal LAD stenosis. We selected a #3.5 XB guiding catheter and advanced to the left coronary ostium. A 0.014 inch Whisper wire was then transitioned into the LAD, and successfully across the very tight the lesional segment. Following wire placement in the distal vessel, we then predilated the stenosis using a 2.5 mm balloon catheter. Following this, two serial, 2.25-2.5 mm drug-eluting stents were then deployed across the lesion, inflating to optimal pressures. Following stent deployment as described, there was an excellent angiographic result, 0 residual stenosis and MANE 3 flow revealing a wraparound distal LAD with excellent flow. The distal diagonal, which originated from adjacent to the lesional segment demonstrated no obstruction to its ostium, remained patent with MANE 3 flow. The catheters and the wires were removed, sheath removed, and hemostasis achieved using an Angio-Seal device. The patient was returned to the postprocedure unit in stable condition. There were no complications. CONCLUSIONS: 1. Coronary artery disease, with a 99% stenosis of the distal LAD. 2. Successful angioplasty and stenting of the distal LAD stenosis with an excellent angiographic result following a serial, 2.25-2.5 mm drug-eluting stents. 3. Normal left ventricular systolic function, ejection fraction 55-60%. Prior to this procedure, the patient expressed a history of a remote coronary stent, which she states was implanted when she lived in [place] many years ago. After review of the current angiograms, no apparent stents were clearly visible, except the proximal to mid LAD was heavily calcified and fluoroscopically the calcification could be obscuring the presence of a stent in the proximal LAD. [facility]# [id number] THOMAS/NTS
--- NOTE | 2021-01-06 15:37 | Progress Note ---
Assessment and Plan This is a 60 year old woman who presents with chest pain # ESRD: HD tomorrow per MWF schedule, no issues with last HD. - daily labs - renally dose meds - avoid nephrotoxins - renal diet # Anemia: last hemoglobin at goal for ESRD, no indication for ESAs # HTN: UF as tolerated. BP reasonable # Secondary Hyperparathyroidism: continue home binders as needed # Chest Pain: management per primary/cardiology, history of CAD with stent placement in 2012. Per history, pain did not occur on HD but HD remains risk factor for cardiac stress. Follows with Dr. Gonzalez outpatient. Note findings from cath- will plan for HD in AM Subjective Date of service: 01/06/21 Interval history: No acute issues noted, resting this AM Objective - Exam Narrative Exam: Constitutional: no acute distress Head: NC/AT Neck: supple Lungs: clear to auscultation CV: RRR, no M/R/G Abdomen: soft, non-tender, bowel sounds present Back: nontender Extremities: no edema, pulses WNL Skin: intact Neuro: no focal deficits, alert and oriented x4 - Vital Signs Vital signs: Vital Signs - 12hr 01/06/21 01/06/21 01/06/21 05:28 07:56 09:35 Temperature 99.6 F 98.3 F Pulse Rate 111 H 74 Pulse Rate [ 73 Anterior Bilateral Throughout] Respiratory 20 20 Rate Respiratory 18 Rate [Anterior Bilateral Throughout] Blood Pressure 128/70 124/63 O2 Sat by Pulse 100 98 Oximetry 01/06/21 01/06/21 01/06/21 13:24 13:45 14:00 Temperature 97.9 F Pulse Rate 87 98 H 79 Pulse Rate [ Anterior Bilateral Throughout] Respiratory 18 14 15 Rate Respiratory Rate [Anterior Bilateral Throughout] Blood Pressure 137/42 155/42 148/44 O2 Sat by Pulse 99 100 99 Oximetry 01/06/21 01/06/21 14:15 14:30 Temperature Pulse Rate 84 80 Pulse Rate [ Anterior Bilateral Throughout] Respiratory 13 14 Rate Respiratory Rate [Anterior Bilateral Throughout] Blood Pressure 144/37 137/50 O2 Sat by Pulse 98 99 Oximetry - Lab 01/04/21 05:46 01/04/21 05:46 Most recent lab results Calcium 10.5 mg/dL (8.4-10.2) H 01/04/21 05:46 Medications & Allergies - Medications Allergies/Adverse Reactions: Allergies Penicillins Allergy (Severe, Verified 01/03/21 13:23) Anaphylaxis Calcium Channel Blocking Agent Dilt Allergy (Unknown, Verified 01/03/21 13:23) Unknown nifedipine Allergy (Unknown, Verified 01/03/21 13:23) Unknown JOHN Inhibitors Adverse Reaction (Unknown, Verified 01/03/21 13:23) Unknown Iodinated Contrast Media Adverse Reaction (Unknown, Verified 01/03/21 13:23) Unknown Home Medications: Home Medications Medication Instructions Recorded Confirmed Last Taken Type Renvela 800 mg PO AC 07/20/20 01/05/21 07/19/20 17:00 History Symbicort 160-4.5 Mcg Inhaler 2 puff INHALATION BID PRN 07/20/20 01/05/21 07/17/20 09:00 History hydrALAZINE 25 mg PO BID 07/20/20 01/05/21 07/19/20 09:00 History AtorvaSTATin [Lipitor] 10 mg PO QHS 01/05/21 01/05/21 Unknown History Calcium Acetate [Phoslo] 667 mg PO DAILY 01/05/21 01/05/21 Unknown History Montelukast Sodium 10 mg PO DAILY 01/05/21 01/05/21 Unknown History Pantoprazole [Protonix] 40 mg PO QDAY 01/05/21 01/05/21 Unknown History Rosuvastatin Calcium 5 mg PO DAILY 01/05/21 01/05/21 Unknown History Valsartan [Diovan] 160 mg PO QDAY 01/05/21 01/05/21 Unknown History polyethylene glycoL 3350 [Miralax 17 gm PO QDAY 01/05/21 01/05/21 Unknown History 3350] Active Medications: Generic Name Dose Route Start Last Admin Trade Name Freq PRN Reason Stop Dose Admin Acetaminophen 650 mg 01/03/21 22:13 Acetaminophen 325 Mg Tab PO Q4H PRN Pain MILD(1-3)/Fever >100.5/BROWN Arformoterol Tartrate 15 mcg 01/04/21 08:00 01/06/21 09:05 Arformoterol 15 Mcg/2 Ml Nebu IH 15 mcg Q12HRT THERESE Administration Aspirin 325 mg 01/04/21 10:00 01/06/21 10:32 Aspirin Ec 325 Mg Tab PO 325 mg QDAY THERESE Administration Atorvastatin Calcium 40 mg 01/06/21 22:00 Atorvastatin 40 Mg Tab PO QHS [facility] Budesonide 0.5 mg 01/04/21 17:14 01/06/21 09:05 Budesonide 0.5 Mg/2 Ml Nebu IH 0.5 mg Q12HRT THERESE Administration Calcitriol 0.5 mcg 01/04/21 10:00 01/05/21 21:58 Calcitriol 0.5 Mcg Cap PO 0.5 mcg BID THERESE Administration Cholecalciferol 2,000 unit 01/04/21 10:00 01/05/21 10:57 Cholecalciferol (Vit D3) 1000 Unit (25 Mcg) Tab PO 2,000 unit DAILY [facility] Administration Clopidogrel Bisulfate 75 mg 01/07/21 10:00 Clopidogrel 75 Mg Tab PO QDAY [facility] Heparin Sodium (Porcine) 5,000 unit 01/04/21 06:00 01/06/21 05:17 Heparin 5,000 Unit/1 Ml Vial SUB-Q 5,000 unit Q8HR THERESE Administration Hydralazine HCl 25 mg 01/04/21 10:00 01/05/21 21:58 Hydralazine 25 Mg Tab PO 25 mg BID [facility] Administration Sodium Chloride 100 mls @ 999 mls/hr 01/04/21 21:35 Nacl 0.9% IV LUIS E PRN Hypotension Isosorbide Mononitrate 30 mg 01/06/21 14:00 Isosorbide Mononitrate Er 30 Mg Tab PO QDAY [facility] Magnesium Hydroxide 30 ml 01/03/21 22:13 Magnesium Hydroxide (Mom) Oral Liqd Udc PO Q4H PRN Constipation Metoclopramide HCl 5 mg 01/04/21 07:30 01/05/21 17:20 Metoclopramide 10 Mg Tab PO Not Given TIDAC [facility] Metoprolol Tartrate 25 mg 01/06/21 14:00 Metoprolol Tartrate 25 Mg Tab PO Q8H [facility] Morphine Sulfate 2 mg 01/03/21 22:13 Morphine 4 Mg/1 Ml Inj IV Q5MIN PRN Chest Pain Nitroglycerin 0.4 mg 01/03/21 22:13 Nitroglycerin 0.4 Mg Tab Subl SL Q5M PRN Chest Pain Ondansetron HCl 4 mg 01/03/21 22:13 Ondansetron 4 Mg/2 Ml Inj IV Q8H PRN Nausea And Vomiting Pantoprazole Sodium 40 mg 01/04/21 10:00 01/05/21 10:57 Pantoprazole 40 Mg Tab PO 40 mg DAILY THERESE Administration Promethazine HCl 25 mg 01/04/21 01:24 Promethazine 25 Mg Rect Supp [place] Q6HR PRN Vomiting Sevelamer Carbonate 800 mg 01/04/21 07:30 01/06/21 08:23 Sevelamer Carbonate 800 Mg Tab PO Not Given AC THERESE Sodium Bicarbonate 650 mg 01/04/21 10:00 01/05/21 21:58 Sodium Bicarbonate 650 Mg Tab PO 650 mg BID THERESE Administration Sodium Chloride 10 ml 01/04/21 10:00 01/05/21 22:02 Sodium Chloride 0.9% 10 Ml Flush Syringe IV 10 ml BID THERESE Administration Sodium Chloride 10 ml 01/03/21 22:13 Sodium Chloride 0.9% 10 Ml Flush Syringe IV PRN PRN LINE FLUSH Tramadol HCl 50 mg 01/03/21 22:13 Tramadol 50 Mg Tab PO Q6H PRN Pain, Moderate (4-6) Zolpidem Tartrate 5 mg 01/04/21 22:00 01/05/21 21:58 Zolpidem 5 Mg Tab PO 5 mg QHS THERESE Administration
[2021-01-06] MEDS: CALCITRIOL 0.5 MCG CAP PO SCH ×2 (16:07→23:06)
[2021-01-06] MEDS: CHOLECALCIFEROL (VIT D3) 1000 UNIT (25 mcg) TAB PO SCH (16:07)
[2021-01-06] MEDS: SODIUM BICARBONATE 650 MG TAB PO SCH ×2 (16:08→23:06)
[2021-01-06] MEDS: METOCLOPRAMIDE 10 MG TAB PO SCH ×3 (16:08→20:05)
[2021-01-06] MEDS: PANTOPRAZOLE 40 MG TAB PO SCH (16:08)
[2021-01-06] MEDS: METOPROLOL TARTRATE 25 MG TAB PO SCH ×2 (16:15→22:00)
[2021-01-06] MEDS: hydrALAZINE 25 MG TAB PO SCH ×2 (16:34→22:00)
[2021-01-06] MEDS: ZOLPIDEM 5 MG TAB PO SCH (23:08)
[2021-01-07] MEDS: HEPARIN 5,000 UNIT/1 ML VIAL SUB-Q SCH ×3 (06:30→21:28)
[2021-01-07] MEDS: METOPROLOL TARTRATE 25 MG TAB PO SCH ×4 (06:30→22:00)
--- NOTE | 2021-01-07 07:56 | Discharge Summary ---
Providers - Providers Date of Admission: 01/03/21 21:38 Date of discharge: 01/07/21 Attending physician: EVELINA ROSENBAUM 01/03/21 Consult to Cardiac Rehabilitation [CONS] Routine Reason For Exam: Phase I 01/03/21 22:13 Consult to Cardiology [CONS] Routine Consulting Provider: JORGE BISHOP Reason For Exam: chest pain 01/04/21 08:37 Consult to Physician [CONS] Routine Comment: Consulting Provider: DOMINGA BUTLER Physician Instructions: Reason For Exam: ESRD oN HD 01/06/21 Consult to Cardiac Rehabilitation [CONS] Routine Reason For Exam: post pci Primary care physician: ZA DURON Hospitalization Reason for admission: cp Condition: Stable Hospital course: 60-year-old -Serbian female with known history of coronary artery disease with stent in the past, hypertension, COPD, GERD TIA, end-stage renal disease on dialysis on Sunday, Sunday and Sunday presenting to the emergency room yesterday complaining of chest pain. The patient was admitted with diagnosis of chest pain. EKG revealed normal sinus rhythm with no ST-T wave changes. Troponin was found to be normal. However, pt had an abnormal MPI and underwent cardiac cath at recommendations of Cardiology. The cath revealed greater than 99% stenosis of the distal LAD, we performed successful angioplasty with coronary stenting using drug-eluting stents. Excellent postprocedure result. Patient will be started on dual oral antiplatelet therapy with Plavix, and observed post intervention overnight. Anticipate discharge today after her routine hemodialysis. D/C time 35 min Disposition: - TO HOME OR SELFCARE Final Discharge Diagnosis (Prints w/discharge instructions): CAD, LAD occlusion, ESRD - Discharge Diagnoses (1) GERD (gastroesophageal reflux disease) Status: Acute (2) Chest pain Status: Acute Core Measure Documentation - Palliative Care Palliative Care/ Comfort Measures: Not Applicable - Core Measures Any of the following diagnoses?: none Exam - Constitutional Vitals: Temp Pulse Resp BP Pulse Ox 98.0 F 68 20 137/64 98 01/07/21 04:28 01/07/21 04:28 01/07/21 04:28 01/07/21 04:28 01/07/21 04:28 General appearance: Present: no acute distress, well-nourished - EENT Eyes: Present: PERRL ENT: hearing intact, clear oral mucosa - Neck Neck: Present: supple, normal ROM - Respiratory Respiratory effort: normal Respiratory: bilateral: CTA - Cardiovascular Heart Sounds: Present: S1 & S2. Absent: rub, click - Extremities Extremities: pulses symmetrical, No edema Peripheral Pulses: within normal limits - Abdominal General gastrointestinal: Present: soft, non-tender, non-distended, normal bowel sounds Female genitourinary: Present: normal - Integumentary Integumentary: Present: clear, warm, dry - Musculoskeletal Musculoskeletal: gait normal, strength equal bilaterally - Psychiatric Psychiatric: appropriate mood/affect, intact judgment & insight - Neurologic Neurologic: CNII-XII intact, moves all extremities Plan Activity: advance as tolerated Weight Bearing Status: Weight Bear as Tolerated Diet: low fat, low cholesterol, renal Follow up with: ZA DURON MD [Primary Care Provider] - 3-5 Days Prescriptions: Aspirin EC [Ecotrin] 325 mg PO QDAY #30 tablet hydrALAZINE 25 mg PO BID #60 ISOSORBIDE MONOnitrate [Imdur ER] 30 mg PO QDAY #60 tablet AtorvaSTATin [Lipitor] 40 mg PO QHS #30 tablet Metoprolol [Lopressor TAB] 25 mg PO Q8H #90 tablet polyethylene glycoL 3350 [Miralax 3350] 17 gm PO QDAY #30 Montelukast Sodium 10 mg PO DAILY #30 Calcium Acetate [Phoslo] 667 mg PO DAILY #30 cap Clopidogrel [Plavix] 75 mg PO QDAY #30 tablet Pantoprazole [Protonix TAB] 40 mg PO QDAY #30 Rosuvastatin Calcium 5 mg PO DAILY #30
[2021-01-07] MEDS ORDERED: diphenhydrAMINE 25 MG CAP PO PRN (08:00)
[2021-01-07] MEDS: METOCLOPRAMIDE 10 MG TAB PO SCH ×3 (08:09→17:06)
[2021-01-07] MEDS: SEVELAMER CARBONATE 800 MG TAB PO SCH ×3 (08:12→17:06)
--- NOTE | 2021-01-07 08:38 | XRay Report ---
CHEST 1 VIEW INDICATION: post pci. COMPARISON: 01/03/2021 FINDINGS: Support devices: None. Heart: Normal. Lungs/Pleura: No acute pulmonary or pleural findings. IMPRESSION: 1. No acute findings. Signer Name: Kuldip Teresa MD Signed: 01/07/2021 8:33 AM Workstation Name: [id number]
[2021-01-07] MEDS: ARFORMOTEROL 15 MCG/2 ML NEBU IH SCH ×2 (09:05→20:41)
[2021-01-07] MEDS: BUDESONIDE 0.5 MG/2 ML NEBU IH SCH ×2 (09:05→20:41)
--- NOTE | 2021-01-07 09:49 | Progress Note ---
Assessment and Plan This is a 60 year old woman who presents with chest pain # ESRD: HD today per MWF schedule, no issues so far including concern for cardiac chest pain on HD - daily labs - renally dose meds - avoid nephrotoxins - renal diet # Anemia: last hemoglobin at goal for ESRD, no indication for ESAs # HTN: UF as tolerated. BP reasonable # Secondary Hyperparathyroidism: continue home binders as needed # Chest Pain: management per primary/cardiology, history of CAD with stent placement in 2012. Per history, pain did not occur on HD but HD remains risk factor for cardiac stress. Follows with Dr. Gonzalez outpatient. Note findings from cath, appreciated, no issues with HD this AM Subjective Date of service: 01/07/21 Interval history: No acute issues noted, resting this AM, seen on HD, no dyspnea or chest pain noted Objective - Exam Narrative Exam: Constitutional: no acute distress Head: NC/AT Neck: supple Lungs: clear to auscultation CV: RRR, no M/R/G Abdomen: soft, non-tender, bowel sounds present Back: nontender Extremities: no edema, pulses WNL Skin: intact Neuro: no focal deficits, alert and oriented x4 - Vital Signs Vital signs: Vital Signs - 12hr 01/06/21 01/07/21 01/07/21 22:00 00:00 00:25 Temperature 98.0 F Pulse Rate 64 60 64 Respiratory 18 Rate Respiratory Rate [Chest] Blood Pressure 106/57 124/62 O2 Sat by Pulse 100 Oximetry 01/07/21 01/07/21 01/07/21 01:00 04:28 08:09 Temperature 98.0 F 97.7 F Pulse Rate 68 64 Respiratory 20 20 Rate Respiratory 20 Rate [Chest] Blood Pressure 137/64 121/38 O2 Sat by Pulse 98 98 Oximetry 01/07/21 01/07/21 09:15 09:30 Temperature 97.7 F Pulse Rate 62 59 L Respiratory 18 Rate Respiratory Rate [Chest] Blood Pressure 157/57 143/62 O2 Sat by Pulse Oximetry Seen on HD: Qb 350, UF goal 2.5L, BP stable - Lab 01/04/21 05:46 01/04/21 05:46 Most recent lab results Calcium 10.5 mg/dL (8.4-10.2) H 01/04/21 05:46 Medications & Allergies - Medications Allergies/Adverse Reactions: Allergies Penicillins Allergy (Severe, Verified 01/03/21 13:23) Anaphylaxis Calcium Channel Blocking Agent Dilt Allergy (Unknown, Verified 01/03/21 13:23) Unknown nifedipine Allergy (Unknown, Verified 01/03/21 13:23) Unknown JOHN Inhibitors Adverse Reaction (Unknown, Verified 01/03/21 13:23) Unknown Iodinated Contrast Media Adverse Reaction (Unknown, Verified 01/03/21 13:23) Unknown Home Medications: Home Medications Medication Instructions Recorded Confirmed Last Taken Type Renvela 800 mg PO AC 07/20/20 01/05/21 07/19/20 17:00 History Symbicort 160-4.5 Mcg Inhaler 2 puff INHALATION BID PRN 07/20/20 01/05/21 07/17/20 09:00 History Aspirin EC [Ecotrin] 325 mg PO QDAY #30 tablet 01/07/21 Unknown Rx AtorvaSTATin [Lipitor] 40 mg PO QHS #30 tablet 01/07/21 Unknown Rx Budesonide [Pulmicort Respules] 0.5 mg IH Q12HRT nebu 01/07/21 Unknown Rx Calcium Acetate [Phoslo] 667 mg PO DAILY #30 cap 01/07/21 Unknown Rx Clopidogrel [Plavix] 75 mg PO QDAY #30 tablet 01/07/21 Unknown Rx ISOSORBIDE MONOnitrate [Imdur ER] 30 mg PO QDAY #60 tablet 01/07/21 Unknown Rx Metoprolol [Lopressor TAB] 25 mg PO Q8H #90 tablet 01/07/21 Unknown Rx Montelukast Sodium 10 mg PO DAILY #30 01/07/21 Unknown Rx Pantoprazole [Protonix TAB] 40 mg PO QDAY #30 01/07/21 Unknown Rx Rosuvastatin Calcium 5 mg PO DAILY #30 01/07/21 Unknown Rx hydrALAZINE 25 mg PO BID #60 01/07/21 Unknown Rx polyethylene glycoL 3350 [Miralax 17 gm PO QDAY #30 01/07/21 Unknown Rx 3350] Active Medications: Generic Name Dose Route Start Last Admin Trade Name Freq PRN Reason Stop Dose Admin Acetaminophen 650 mg 01/03/21 22:13 Acetaminophen 325 Mg Tab PO Q4H PRN Pain MILD(1-3)/Fever >100.5/BROWN Arformoterol Tartrate 15 mcg 01/04/21 08:00 01/07/21 09:05 Arformoterol 15 Mcg/2 Ml Nebu IH Not Given Q12HRT [facility] Aspirin 325 mg 01/04/21 10:00 01/06/21 10:32 Aspirin Ec 325 Mg Tab PO 325 mg QDAY [facility] Administration Atorvastatin Calcium 40 mg 01/06/21 22:00 01/06/21 23:06 Atorvastatin 40 Mg Tab PO 40 mg QHS [facility] Administration Budesonide 0.5 mg 01/04/21 17:14 01/07/21 09:05 Budesonide 0.5 Mg/2 Ml Nebu IH Not Given Q12HRT [facility] Calcitriol 0.5 mcg 01/04/21 10:00 01/06/21 23:06 Calcitriol 0.5 Mcg Cap PO 0.5 mcg BID [facility] Administration Cholecalciferol 2,000 unit 01/04/21 10:00 01/06/21 16:07 Cholecalciferol (Vit D3) 1000 Unit (25 Mcg) Tab PO 2,000 unit DAILY [facility] Administration Clopidogrel Bisulfate 75 mg 01/07/21 10:00 Clopidogrel 75 Mg Tab PO QDAY [facility] Diphenhydramine HCl 25 mg 01/07/21 08:00 01/07/21 08:09 Diphenhydramine 25 Mg Cap PO 25 mg Q6H PRN Administration Itching Heparin Sodium (Porcine) 5,000 unit 01/04/21 06:00 01/07/21 06:30 Heparin 5,000 Unit/1 Ml Vial SUB-Q Not Given Q8HR [facility] Hydralazine HCl 25 mg 01/04/21 10:00 01/06/21 22:00 Hydralazine 25 Mg Tab PO Not Given BID [facility] Sodium Chloride 100 mls @ 999 mls/hr 01/04/21 21:35 Nacl 0.9% IV LUIS E PRN Hypotension Isosorbide Mononitrate 30 mg 01/06/21 14:00 01/06/21 16:23 Isosorbide Mononitrate Er 30 Mg Tab PO 30 mg QDAY [facility] Administration Magnesium Hydroxide 30 ml 01/03/21 22:13 Magnesium Hydroxide (Mom) Oral Liqd Udc PO Q4H PRN Constipation Metoclopramide HCl 5 mg 01/04/21 07:30 01/07/21 08:09 Metoclopramide 10 Mg Tab PO 5 mg TIDAC THERESE Administration Metoprolol Tartrate 25 mg 01/06/21 14:00 01/07/21 06:30 Metoprolol Tartrate 25 Mg Tab PO Not Given Q8H THERESE Morphine Sulfate 2 mg 01/03/21 22:13 Morphine 4 Mg/1 Ml Inj IV Q5MIN PRN Chest Pain Nitroglycerin 0.4 mg 01/03/21 22:13 Nitroglycerin 0.4 Mg Tab Subl SL Q5M PRN Chest Pain Ondansetron HCl 4 mg 01/03/21 22:13 Ondansetron 4 Mg/2 Ml Inj IV Q8H PRN Nausea And Vomiting Pantoprazole Sodium 40 mg 01/04/21 10:00 01/06/21 16:08 Pantoprazole 40 Mg Tab PO 40 mg DAILY THERESE Administration Promethazine HCl 25 mg 01/04/21 01:24 Promethazine 25 Mg Rect Supp DE Q6HR PRN Vomiting Sevelamer Carbonate 800 mg 01/04/21 07:30 01/07/21 08:12 Sevelamer Carbonate 800 Mg Tab PO 800 mg AC THERESE Administration Sodium Bicarbonate 650 mg 01/04/21 10:00 01/06/21 23:06 Sodium Bicarbonate 650 Mg Tab PO 650 mg BID THERESE Administration Sodium Chloride 10 ml 01/04/21 10:00 01/06/21 23:44 Sodium Chloride 0.9% 10 Ml Flush Syringe IV 10 ml BID THERESE Administration Sodium Chloride 10 ml 01/03/21 22:13 Sodium Chloride 0.9% 10 Ml Flush Syringe IV PRN PRN LINE FLUSH Tramadol HCl 50 mg 01/03/21 22:13 Tramadol 50 Mg Tab PO Q6H PRN Pain, Moderate (4-6) Zolpidem Tartrate 5 mg 01/04/21 22:00 01/06/21 23:08 Zolpidem 5 Mg Tab PO 5 mg QHS THERESE Administration
--- NOTE | 2021-01-07 10:14 | Electrocardiograph Report ---
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
--- NOTE | 2021-01-07 10:35 | Electrocardiograph Report ---
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
[2021-01-07] MEDS: CLOPIDOGREL 75 MG TAB PO SCH (12:36)
[2021-01-07] MEDS: METOPROLOL TARTRATE 5 MG/5 ML INJ IV ONE ×2 (12:36→13:22)
[2021-01-07] MEDS: SODIUM BICARBONATE 650 MG TAB PO SCH ×2 (12:37→21:27)
[2021-01-07] MEDS: hydrALAZINE 25 MG TAB PO SCH ×2 (12:37→21:28)
[2021-01-07] MEDS: PANTOPRAZOLE 40 MG TAB PO SCH (12:37)
[2021-01-07] MEDS: ASPIRIN EC 325 MG TAB PO SCH (12:37)
[2021-01-07] MEDS: CALCITRIOL 0.5 MCG CAP PO SCH ×2 (12:38→21:28)
[2021-01-07] MEDS: CHOLECALCIFEROL (VIT D3) 1000 UNIT (25 mcg) TAB PO SCH (12:38)
[2021-01-07] MEDS: AMIODARONE 200 MG TAB PO SCH (13:38)
[2021-01-07 13:56] LABS: Basophils # (Auto) 0.1 K/mm3 (0.0-0.1); Basophils % (Auto) 0.6 % (0.0-1.8); Eosinophils # (Auto) 0.3 K/mm3 (0.0-0.4); Eosinophils % (Auto) 3.9 % (0.0-4.3); Hematocrit 35.1 % (30.3-42.9); Hemoglobin 11.4 gm/dl (10.1-14.3); Lymphocytes % (Auto) 23.8 % (13.4-35.0); Mean Corpuscular HGB Conc 32 % (30-34); Mean Corpuscular Volume 96 fl (79-97); Monocytes # (Auto) 0.9 K/mm3 (0.0-0.8); Monocytes % (Auto) 10.5 % (0.0-7.3); Platelet Count 157 K/mm3 (140-440); Red Blood Count 3.67 M/mm3 (3.65-5.03); Red Cell Distribution Width 15.9 % (13.2-15.2)
[2021-01-07] MEDS ORDERED: AMIODARONE 300 MG in DEXTROSE 5% IN WATER 100 ML IV ONE (14:00)
--- NOTE | 2021-01-07 14:17 | Progress Note ---
Assessment and Plan - Patient Problems (1) Chest pain Current Visit: Yes Status: Acute Plan to address problem: Patient was admitted with chest pain, Lexiscan thallium stress was abnormal, ultimately underwent cardiac catheterization with coronary stenting of a distal LAD stenosis. 2.25 to 2.5 mm drug-eluting stents were implanted with an excellent angiographic result. We will continue guideline directed medical therapy including dual oral antiplatelet therapy with Plavix. (2) Paroxysmal atrial tachycardia Current Visit: Yes Status: Acute Plan to address problem: Patient developed paroxysmal atrial tachycardia today during dialysis, may likely be related to fluid and electrolyte shifts. We will treat the patient with addition of amiodarone to regimen, check potassi um levels and check magnesium levels. Hold discharge today. Subjective Date of service: 01/07/21 Interval history: Today, the patient was at hemodialysis when she developed a burst of nonsustained ventricular tachycardia, followed by a sustained narrow complex tachycardia that appeared to be an atrial tachycardia. She was ordered for 5 mg intravenous metoprolol, but tachycardia resolved spontaneously with cessation of dialysis. Her potassium level was 4.3 on yesterday's labs, not yet repeated today. She otherwise feels well, with no chest pain or shortness of breath. It will be recalled that she had successful coronary angioplasty and stenting of the distal LAD stenosis yesterday, and left ventricular systolic function was well- preserved with ejection fraction greater than 55%. Objective Vital Signs Temp Pulse Resp Resp BP BP Pulse Ox 01/07/21 11:30 72 145/70 01/07/21 11:15 67 127/84 01/07/21 11:00 65 155/55 01/07/21 10:45 64 153/72 01/07/21 10:30 62 162/91 01/07/21 10:15 60 170/87 01/07/21 10:00 65 150/59 01/07/21 09:45 64 162/62 01/07/21 09:30 59 L 143/62 01/07/21 09:15 97.7 F 62 18 157/57 01/07/21 08:09 97.7 F 64 20 121/38 98 01/07/21 04:28 98.0 F 68 20 137/64 98 01/07/21 01:00 20 01/07/21 00:25 98.0 F 64 18 124/62 100 01/07/21 00:00 60 04/01/21 22:00 64 106/57 01/06/21 21:17 98.0 F 64 18 106/57 99 01/06/21 19:30 98.4 F 63 20 92/32 99 01/06/21 17:40 100 01/06/21 16:23 86 01/06/21 16:19 86 01/06/21 16:15 86 01/06/21 15:45 97.6 F 86 20 122/43 100 01/06/21 15:08 97.2 F L 73 16 109/42 01/06/21 14:30 80 14 137/50 99 01/06/21 14:15 84 13 144/37 98 - Physical Examination General: No Apparent Distress HEENT: Positive: PERRL Neck: Positive: neck supple Cardiac: Positive: Reg Rate and Rhythm Lungs: Positive: clear to auscultation Neuro: Positive: Grossly Intact Abdomen: Positive: Soft Skin: Positive: Clear Extremities: Absent: edema - Labs and Meds CBC 01/07/21 Range/Units 13:23 WBC 8.5 (4.5-11.0) K/mm3 RBC 3.67 (3.65-5.03) M/mm3 Hgb 11.4 (10.1-14.3) gm/dl Hct 35.1 (30.3-42.9) % Plt Count 157 (140-440) K/mm3 Lymph # (Auto) 2.0 (1.2-5.4) K/mm3 [place] # (Auto) 0.9 H (0.0-0.8) K/mm3 Eos # (Auto) 0.3 (0.0-0.4) K/mm3 Baso # (Auto) 0.1 (0.0-0.1) K/mm3
--- NOTE | 2021-01-07 14:41 | Electrocardiograph Report ---
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
--- NOTE | 2021-01-07 14:46 | Electrocardiograph Report ---
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
--- NOTE | 2021-01-07 14:50 | Electrocardiograph Report ---
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
[2021-01-07 18:03] LABS: Calcium 8.6 mg/dL (8.4-10.2)
[2021-01-07] MEDS: ZOLPIDEM 5 MG TAB PO SCH (21:28)
[2021-01-08] MEDS: HEPARIN 5,000 UNIT/1 ML VIAL SUB-Q SCH ×2 (05:45→13:58)
[2021-01-08] MEDS: METOPROLOL TARTRATE 25 MG TAB PO SCH ×2 (07:39→14:01)
[2021-01-08] MEDS: BUDESONIDE 0.5 MG/2 ML NEBU IH SCH (08:16)
[2021-01-08] MEDS: ARFORMOTEROL 15 MCG/2 ML NEBU IH SCH (08:16)
[2021-01-08] MEDS: SEVELAMER CARBONATE 800 MG TAB PO SCH ×2 (08:49→11:31)
[2021-01-08] MEDS: METOCLOPRAMIDE 10 MG TAB PO SCH ×2 (08:50→11:34)
[2021-01-08] MEDS: hydrALAZINE 25 MG TAB PO SCH (09:17)
--- NOTE | 2021-01-08 09:32 | Progress Note ---
Assessment and Plan Assessment and plan: Patient is a 60-year-old woman with end-stage renal disease on hemodialysis, referred to the emergency room for chest pain evaluation. She states that she had some left-sided chest pain which occurred at rest, associated with some shortness of breath, in the emergency room ECG was normal sinus rhythm with no ST or T wave abnormalities, normal ECG. Chest x-ray revealed a normal-sized cardiac silhouette and clear lungs. The troponin levels x3 were negative. She was referred for a Lexiscan thallium stress test which was abnormal The patient gave history of coronary artery disease and states that she had a coronary stent implantation in 2008, but there are no records available to review the details of this coronary intervention. An echocardiogram done in this hospital just 3 months ago reported normal left ventricular systolic function with ejection fraction 55 to 60%. Cardiology recommended for cardiac catheterization Coronary artery disease. Chest pain ESRD on hemodialysis. Hypertension. 01/05/2021. Cardiology plans for a cardiac catheterization on tomorrow for abnormal MPI and chest pain. Nephrology following for hemodialysis. Patient underwent hemodialysis today. 01/06/2021. Patient undergo cardiac catheterization today. Await results and further recommendations per cardiology. Continue hemodialysis per nephrology 01/07/2021. While at hemodialysis today, patient developed a burst of nonsustained ventricular tachycardia, followed by a sustained narrow complex tachycardia that appeared to be an atrial tachycardia. She was ordered for 5 mg intravenous metoprolol, but tachycardia resolved spontaneously with cessation of dialysis. Her discharge orders were discontinued. Cardiology initiated amiodarone. Patient will be monitored on telemetry overnight - Patient Problems (1) GERD (gastroesophageal reflux disease) Current Visit: Yes Status: Acute (2) Chest pain Current Visit: Yes Status: Acute History Interval history: No new issues overnight. Hospitalist Physical - Constitutional Vitals: Temp Pulse Resp BP Pulse Ox 97.8 F 69 18 96/39 100 01/08/21 07:43 01/08/21 09:18 01/08/21 08:21 01/08/21 09:18 01/08/21 07:43 General appearance: Present: no acute distress, well-nourished - EENT Eyes: Present: PERRL, EOM intact ENT: hearing intact, clear oral mucosa, dentition normal - Neck Neck: Present: supple, normal ROM - Respiratory Respiratory effort: normal Respiratory: bilateral: CTA - Cardiovascular Rhythm: regular Heart Sounds: Present: S1 & S2. Absent: gallop, rub - Extremities Extremities: no ischemia, No edema, Full ROM - Abdominal General gastrointestinal: soft, non-tender, non-distended, normal bowel sounds - Integumentary Integumentary: Present: clear, warm, dry - Neurologic Neurologic: CNII-XII intact, moves all extremities HEART Score - HEART Score EKG: Non-specific Age: 45-65 Risk factors: 1-2 risk factors Troponin: Troponin T 0.088 ng/mL (0.00-0.029) H D 01/07/21 16:42 Troponin: < normal limit Results - Labs CBC & Chem 7: 01/07/21 13:23 01/07/21 16:42 Labs: Laboratory Last Values WBC 8.5 K/mm3 (4.5-11.0) 01/07/21 13:23 RBC 3.67 M/mm3 (3.65-5.03) 01/07/21 13:23 Hgb 11.4 gm/dl (10.1-14.3) 01/07/21 13:23 Hct 35.1 % (30.3-42.9) 01/07/21 13:23 MCV 96 fl (79-97) 01/07/21 13:23 MCH 31 pg (28-32) 01/07/21 13:23 MCHC 32 % (30-34) 01/07/21 13:23 RDW 15.9 % (13.2-15.2) H 01/07/21 13:23 Plt Count 157 K/mm3 (140-440) 01/07/21 13:23 Lymph % (Auto) 23.8 % (13.4-35.0) 01/07/21 13:23 [place] % (Auto) 10.5 % (0.0-7.3) H 01/07/21 13:23 Eos % (Auto) 3.9 % (0.0-4.3) 01/07/21 13:23 Baso % (Auto) 0.6 % (0.0-1.8) 01/07/21 13:23 Lymph # (Auto) 2.0 K/mm3 (1.2-5.4) 01/07/21 13:23 [place] # (Auto) 0.9 K/mm3 (0.0-0.8) H 01/07/21 13:23 Eos # (Auto) 0.3 K/mm3 (0.0-0.4) 01/07/21 13:23 Baso # (Auto) 0.1 K/mm3 (0.0-0.1) 01/07/21 13:23 Seg Neutrophils % 61.2 % (40.0-70.0) 01/07/21 13:23 Seg Neutrophils # 5.2 K/mm3 (1.8-7.7) 01/07/21 13:23 PT 13.5 Sec. (12.2-14.9) 01/04/21 05:46 INR 1.04 (0.87-1.13) 01/04/21 05:46 Activated Clotting Time 224 (74-137) H 01/06/21 13:17 Sodium 129 mmol/L (137-145) L 01/07/21 16:42 Potassium 4.1 mmol/L (3.6-5.0) 01/07/21 16:42 Chloride 88.4 mmol/L (98-107) L 01/07/21 16:42 Carbon Dioxide 26 mmol/L (22-30) 01/07/21 16:42 Anion Gap 19 mmol/L 01/07/21 16:42 BUN 26 mg/dL (7-17) H 01/07/21 16:42 Creatinine 5.1 mg/dL (0.6-1.2) H 01/07/21 16:42 Estimated GFR 10 ml/min 01/07/21 16:42 BUN/Creatinine Ratio 5 % 01/07/21 16:42 Glucose 81 mg/dL (65-100) 01/07/21 16:42 POC Glucose 136 mg/dL (70-105) H 01/06/21 05:30 Calcium 8.6 mg/dL (8.4-10.2) D 01/07/21 16:42 Magnesium 1.80 mg/dL (1.7-2.3) 01/07/21 16:42 Total Bilirubin 0.30 mg/dL (0.1-1.2) 01/03/21 14:01 AST 26 units/L (5-40) 01/03/21 14:01 ALT 16 units/L (7-56) 01/03/21 14:01 Alkaline Phosphatase 75 units/L (35-129) 01/03/21 14:01 Troponin T 0.088 ng/mL (0.00-0.029) H D 01/07/21 16:42 Total Protein 7.6 g/dL (6.3-8.2) 01/03/21 14:01 Albumin 3.7 g/dL (3.9-5) L 01/03/21 14:01 Albumin/Globulin Ratio 0.9 % 01/03/21 14:01 Triglycerides 61 mg/dL (2-149) 01/04/21 05:46 Cholesterol 150 mg/dL (50-199) 01/04/21 05:46 LDL Cholesterol Direct 64 mg/dL (50-130) 01/04/21 05:46 HDL Cholesterol 80 mg/dL (40-59) H 01/04/21 05:46 Cholesterol/HDL Ratio 1.87 % 01/04/21 05:46 Hepatitis A IgM Ab Non-reactive (NonReactive) 01/05/21 15:59 Hep Bs Antigen Non-reactive (Negative) 01/05/21 15:59 Hep B Core IgM Ab Non-reactive (NonReactive) 01/05/21 15:59 Hepatitis C Antibody Non-reactive (NonReactive) 01/05/21 15:59 [place]/IV: Voiding Method Toilet Active Medications - Current Medications Current Medications: Generic Name Dose Route Start Last Admin Trade Name Freq PRN Reason Stop Dose Admin Acetaminophen 650 mg 01/03/21 22:13 Acetaminophen 325 Mg Tab PO Q4H PRN Pain MILD(1-3)/Fever >100.5/BROWN Amiodarone HCl 200 mg 01/07/21 14:00 01/07/21 13:38 Amiodarone 200 Mg Tab PO 200 mg QDAY THERESE Administration Arformoterol Tartrate 15 mcg 01/04/21 08:00 01/08/21 08:16 Arformoterol 15 Mcg/2 Ml Nebu IH 15 mcg Q12HRT THERESE Administration Aspirin 325 mg 01/04/21 10:00 01/07/21 12:37 Aspirin Ec 325 Mg Tab PO 325 mg QDAY THERESE Administration Atorvastatin Calcium 40 mg 01/06/21 22:00 01/07/21 21:28 Atorvastatin 40 Mg Tab PO 40 mg QHS THERESE Administration Budesonide 0.5 mg 01/04/21 17:14 01/08/21 08:16 Budesonide 0.5 Mg/2 Ml Nebu IH 0.5 mg Q12HRT [facility] Administration Calcitriol 0.5 mcg 01/04/21 10:00 01/07/21 21:28 Calcitriol 0.5 Mcg Cap PO 0.5 mcg BID [facility] Administration Cholecalciferol 2,000 unit 01/04/21 10:00 01/07/21 12:38 Cholecalciferol (Vit D3) 1000 Unit (25 Mcg) Tab PO Not Given DAILY [facility] Clopidogrel Bisulfate 75 mg 01/07/21 10:00 01/07/21 12:36 Clopidogrel 75 Mg Tab PO 75 mg QDAY [facility] Administration Diphenhydramine HCl 25 mg 01/07/21 08:00 01/07/21 08:09 Diphenhydramine 25 Mg Cap PO 25 mg Q6H PRN Administration Itching Heparin Sodium (Porcine) 5,000 unit 01/04/21 06:00 01/08/21 05:45 Heparin 5,000 Unit/1 Ml Vial SUB-Q 5,000 unit Q8HR [facility] Administration Hydralazine HCl 25 mg 01/04/21 10:00 01/08/21 09:17 Hydralazine 25 Mg Tab PO Not Given BID [facility] Sodium Chloride 100 mls @ 999 mls/hr 01/04/21 21:35 Nacl 0.9% IV LUIS E PRN Hypotension Isosorbide Mononitrate 30 mg 01/06/21 14:00 01/08/21 09:18 Isosorbide Mononitrate Er 30 Mg Tab PO Not Given QDAY [facility] Magnesium Hydroxide 30 ml 01/03/21 22:13 Magnesium Hydroxide (Mom) Oral Liqd Udc PO Q4H PRN Constipation Metoclopramide HCl 5 mg 01/04/21 07:30 01/08/21 08:50 Metoclopramide 10 Mg Tab PO 5 mg TIDAC [facility] Administration Metoprolol Tartrate 25 mg 01/06/21 14:00 01/08/21 07:39 Metoprolol Tartrate 25 Mg Tab PO Not Given Q8H [facility] Morphine Sulfate 2 mg 01/03/21 22:13 Morphine 4 Mg/1 Ml Inj IV Q5MIN PRN Chest Pain Nitroglycerin 0.4 mg 01/03/21 22:13 Nitroglycerin 0.4 Mg Tab Subl SL Q5M PRN Chest Pain Ondansetron HCl 4 mg 01/03/21 22:13 Ondansetron 4 Mg/2 Ml Inj IV Q8H PRN Nausea And Vomiting Pantoprazole Sodium 40 mg 01/04/21 10:00 01/07/21 12:37 Pantoprazole 40 Mg Tab PO Not Given DAILY THERESE Promethazine HCl 25 mg 01/04/21 01:24 Promethazine 25 Mg Rect Supp GA Q6HR PRN Vomiting Sevelamer Carbonate 800 mg 01/04/21 07:30 01/08/21 08:49 Sevelamer Carbonate 800 Mg Tab PO 800 mg AC THERESE Administration Sodium Bicarbonate 650 mg 01/04/21 10:00 01/07/21 21:27 Sodium Bicarbonate 650 Mg Tab PO 650 mg BID THERESE Administration Sodium Chloride 10 ml 01/04/21 10:00 01/08/21 05:48 Sodium Chloride 0.9% 10 Ml Flush Syringe IV 10 ml BID THERESE Administration Sodium Chloride 10 ml 01/03/21 22:13 Sodium Chloride 0.9% 10 Ml Flush Syringe IV PRN PRN LINE FLUSH Tramadol HCl 50 mg 01/03/21 22:13 Tramadol 50 Mg Tab PO Q6H PRN Pain, Moderate (4-6) Zolpidem Tartrate 5 mg 01/04/21 22:00 01/07/21 21:28 Zolpidem 5 Mg Tab PO 5 mg QHS THERESE Administration Nutrition/Malnutrition Assess - Dietary Evaluation Nutrition/Malnutrition Findings: Nutrition Notes Start: 01/07/21 14:08 Freq: Status: Active Protocol: Document 01/07/21 14:08 CW (Rec: 01/07/21 14:17 [id number]) Nutrition Notes Need for Assessment generated from: MD Order,Education Initial or Follow up Brief Note Current Diagnosis CKD (stage V CKD),Coronary Artery Disease,Hypertension Other Pertinent Diagnosis GERD, on HD MWF, Current Diet Cardiac Diet Weight Status Obese Subjective/Other Information MD consult r/t heart healthy diet. Pt reports having good knowledge of heart healthy diet. Pt was able to describe ways in which to follow a heart healthy diet and explaind the methods/ precautions she has taken already. Pt still accepted diet education handout. Current % PO Good (75-100%) Nutrition Intervention Teaching Recipient Patient Learning Readiness Good Teaching Methods Discussion,Handout Response to Teaching Return demonstration,Verbalize understanding Education Handouts Provided Heart healthy nutrition therapy RD phone number provided Yes Patient aware of follow up options Yes Anticipated Discharge Needs: heart healthy Renal Diet Revisit per MD consult or patient Sign Off request: Additional Comments S/O for good intake and understanding of heart healthy requirements
--- NOTE | 2021-01-08 09:35 | Progress Note ---
Assessment and Plan Assessment and plan: Patient is a 60-year-old woman with end-stage renal disease on hemodialysis, referred to the emergency room for chest pain evaluation. She states that she had some left-sided chest pain which occurred at rest, associated with some shortness of breath, in the emergency room ECG was normal sinus rhythm with no ST or T wave abnormalities, normal ECG. Chest x-ray revealed a normal-sized cardiac silhouette and clear lungs. The troponin levels x3 were negative. She was referred for a Lexiscan thallium stress test which was abnormal The patient gave history of coronary artery disease and states that she had a coronary stent implantation in 2008, but there are no records available to review the details of this coronary intervention. An echocardiogram done in this hospital just 3 months ago reported normal left ventricular systolic function with ejection fraction 55 to 60%. Cardiology recommended for cardiac catheterization Coronary artery disease. Chest pain ESRD on hemodialysis. Hypertension. 01/05/2021. Cardiology plans for a cardiac catheterization on tomorrow for abnormal MPI and chest pain. Nephrology following for hemodialysis. Patient underwent hemodialysis today. 01/06/2021. Patient undergo cardiac catheterization today. Await results and further recommendations per cardiology. Continue hemodialysis per nephrology 01/07/2021. While at hemodialysis today, patient developed a burst of nonsustained ventricular tachycardia, followed by a sustained narrow complex tachycardia that appeared to be an atrial tachycardia. She was ordered for 5 mg intravenous metoprolol, but tachycardia resolved spontaneously with cessation of dialysis. Her discharge orders were discontinued. Cardiology initiated amiodarone. Patient will be monitored on telemetry overnight 01/08/2021. Continue amiodarone per cardiology recommendations. Anticipate discharge today if okay with cardiology. - Patient Problems (1) GERD (gastroesophageal reflux disease) Current Visit: Yes Status: Acute (2) Chest pain Current Visit: Yes Status: Acute History Interval history: No new issues overnight. Hospitalist Physical - Constitutional Vitals: Temp Pulse Resp BP Pulse Ox 97.8 F 69 18 96/39 100 01/08/21 07:43 01/08/21 09:18 01/08/21 08:21 01/08/21 09:18 01/08/21 07:43 General appearance: Present: no acute distress, well-nourished - EENT Eyes: Present: PERRL, EOM intact ENT: hearing intact, clear oral mucosa, dentition normal - Neck Neck: Present: supple, normal ROM - Respiratory Respiratory effort: normal Respiratory: bilateral: CTA - Cardiovascular Rhythm: regular Heart Sounds: Present: S1 & S2. Absent: gallop, rub - Extremities Extremities: no ischemia, No edema, Full ROM - Abdominal General gastrointestinal: soft, non-tender, non-distended, normal bowel sounds - Integumentary Integumentary: Present: clear, warm, dry - Neurologic Neurologic: CNII-XII intact, moves all extremities HEART Score - HEART Score EKG: Non-specific Age: 45-65 Risk factors: 1-2 risk factors Troponin: Troponin T 0.088 ng/mL (0.00-0.029) H D 01/07/21 16:42 Troponin: < normal limit Results - Labs CBC & Chem 7: 01/07/21 13:23 01/07/21 16:42 Labs: Laboratory Last Values WBC 8.5 K/mm3 (4.5-11.0) 01/07/21 13:23 RBC 3.67 M/mm3 (3.65-5.03) 01/07/21 13:23 Hgb 11.4 gm/dl (10.1-14.3) 01/07/21 13:23 Hct 35.1 % (30.3-42.9) 01/07/21 13:23 MCV 96 fl (79-97) 01/07/21 13:23 MCH 31 pg (28-32) 01/07/21 13:23 MCHC 32 % (30-34) 01/07/21 13:23 RDW 15.9 % (13.2-15.2) H 01/07/21 13:23 Plt Count 157 K/mm3 (140-440) 01/07/21 13:23 Lymph % (Auto) 23.8 % (13.4-35.0) 01/07/21 13:23 Ware % (Auto) 10.5 % (0.0-7.3) H 01/07/21 13:23 Eos % (Auto) 3.9 % (0.0-4.3) 01/07/21 13:23 Baso % (Auto) 0.6 % (0.0-1.8) 01/07/21 13:23 Lymph # (Auto) 2.0 K/mm3 (1.2-5.4) 01/07/21 13:23 Ware # (Auto) 0.9 K/mm3 (0.0-0.8) H 01/07/21 13:23 Eos # (Auto) 0.3 K/mm3 (0.0-0.4) 01/07/21 13:23 Baso # (Auto) 0.1 K/mm3 (0.0-0.1) 01/07/21 13:23 Seg Neutrophils % 61.2 % (40.0-70.0) 01/07/21 13:23 Seg Neutrophils # 5.2 K/mm3 (1.8-7.7) 01/07/21 13:23 PT 13.5 Sec. (12.2-14.9) 01/04/21 05:46 INR 1.04 (0.87-1.13) 01/04/21 05:46 Activated Clotting Time 224 (74-137) H 01/06/21 13:17 Sodium 129 mmol/L (137-145) L 01/07/21 16:42 Potassium 4.1 mmol/L (3.6-5.0) 01/07/21 16:42 Chloride 88.4 mmol/L (98-107) L 01/07/21 16:42 Carbon Dioxide 26 mmol/L (22-30) 01/07/21 16:42 Anion Gap 19 mmol/L 01/07/21 16:42 BUN 26 mg/dL (7-17) H 01/07/21 16:42 Creatinine 5.1 mg/dL (0.6-1.2) H 01/07/21 16:42 Estimated GFR 10 ml/min 01/07/21 16:42 BUN/Creatinine Ratio 5 % 01/07/21 16:42 Glucose 81 mg/dL (65-100) 01/07/21 16:42 POC Glucose 136 mg/dL (70-105) H 01/06/21 05:30 Calcium 8.6 mg/dL (8.4-10.2) D 01/07/21 16:42 Magnesium 1.80 mg/dL (1.7-2.3) 01/07/21 16:42 Total Bilirubin 0.30 mg/dL (0.1-1.2) 01/03/21 14:01 AST 26 units/L (5-40) 01/03/21 14:01 ALT 16 units/L (7-56) 01/03/21 14:01 Alkaline Phosphatase 75 units/L (35-129) 01/03/21 14:01 Troponin T 0.088 ng/mL (0.00-0.029) H D 01/07/21 16:42 Total Protein 7.6 g/dL (6.3-8.2) 01/03/21 14:01 Albumin 3.7 g/dL (3.9-5) L 01/03/21 14:01 Albumin/Globulin Ratio 0.9 % 01/03/21 14:01 Triglycerides 61 mg/dL (2-149) 01/04/21 05:46 Cholesterol 150 mg/dL (50-199) 01/04/21 05:46 LDL Cholesterol Direct 64 mg/dL (50-130) 01/04/21 05:46 HDL Cholesterol 80 mg/dL (40-59) H 01/04/21 05:46 Cholesterol/HDL Ratio 1.87 % 01/04/21 05:46 Hepatitis A IgM Ab Non-reactive (NonReactive) 01/05/21 15:59 Hep Bs Antigen Non-reactive (Negative) 01/05/21 15:59 Hep B Core IgM Ab Non-reactive (NonReactive) 01/05/21 15:59 Hepatitis C Antibody Non-reactive (NonReactive) 01/05/21 15:59 Burnett/IV: Voiding Method Toilet Active Medications - Current Medications Current Medications: Generic Name Dose Route Start Last Admin Trade Name Freq PRN Reason Stop Dose Admin Acetaminophen 650 mg 01/03/21 22:13 Acetaminophen 325 Mg Tab PO Q4H PRN Pain MILD(1-3)/Fever >100.5/BROWN Amiodarone HCl 200 mg 01/07/21 14:00 01/07/21 13:38 Amiodarone 200 Mg Tab PO 200 mg QDAY THERESE Administration Arformoterol Tartrate 15 mcg 01/04/21 08:00 01/08/21 08:16 Arformoterol 15 Mcg/2 Ml Nebu IH 15 mcg Q12HRT THERESE Administration Aspirin 325 mg 01/04/21 10:00 01/07/21 12:37 Aspirin Ec 325 Mg Tab PO 325 mg QDAY THERESE Administration Atorvastatin Calcium 40 mg 01/06/21 22:00 01/07/21 21:28 Atorvastatin 40 Mg Tab PO 40 mg QHS [facility] Administration Budesonide 0.5 mg 01/04/21 17:14 01/08/21 08:16 Budesonide 0.5 Mg/2 Ml Nebu IH 0.5 mg Q12HRT [facility] Administration Calcitriol 0.5 mcg 01/04/21 10:00 01/07/21 21:28 Calcitriol 0.5 Mcg Cap PO 0.5 mcg BID [facility] Administration Cholecalciferol 2,000 unit 01/04/21 10:00 01/07/21 12:38 Cholecalciferol (Vit D3) 1000 Unit (25 Mcg) Tab PO Not Given DAILY [facility] Clopidogrel Bisulfate 75 mg 01/07/21 10:00 01/07/21 12:36 Clopidogrel 75 Mg Tab PO 75 mg QDAY [facility] Administration Diphenhydramine HCl 25 mg 01/07/21 08:00 01/07/21 08:09 Diphenhydramine 25 Mg Cap PO 25 mg Q6H PRN Administration Itching Heparin Sodium (Porcine) 5,000 unit 01/04/21 06:00 01/08/21 05:45 Heparin 5,000 Unit/1 Ml Vial SUB-Q 5,000 unit Q8HR [facility] Administration Hydralazine HCl 25 mg 01/04/21 10:00 01/08/21 09:17 Hydralazine 25 Mg Tab PO Not Given BID [facility] Sodium Chloride 100 mls @ 999 mls/hr 01/04/21 21:35 Nacl 0.9% IV LUIS E PRN Hypotension Isosorbide Mononitrate 30 mg 01/06/21 14:00 01/08/21 09:18 Isosorbide Mononitrate Er 30 Mg Tab PO Not Given QDAY [facility] Magnesium Hydroxide 30 ml 01/03/21 22:13 Magnesium Hydroxide (Mom) Oral Liqd Udc PO Q4H PRN Constipation Metoclopramide HCl 5 mg 01/04/21 07:30 01/08/21 08:50 Metoclopramide 10 Mg Tab PO 5 mg TIDAC [facility] Administration Metoprolol Tartrate 25 mg 01/06/21 14:00 01/08/21 07:39 Metoprolol Tartrate 25 Mg Tab PO Not Given Q8H [facility] Morphine Sulfate 2 mg 01/03/21 22:13 Morphine 4 Mg/1 Ml Inj IV Q5MIN PRN Chest Pain Nitroglycerin 0.4 mg 01/03/21 22:13 Nitroglycerin 0.4 Mg Tab Subl SL Q5M PRN Chest Pain Ondansetron HCl 4 mg 01/03/21 22:13 Ondansetron 4 Mg/2 Ml Inj IV Q8H PRN Nausea And Vomiting Pantoprazole Sodium 40 mg 01/04/21 10:00 01/07/21 12:37 Pantoprazole 40 Mg Tab PO Not Given DAILY [facility] Promethazine HCl 25 mg 01/04/21 01:24 Promethazine 25 Mg Rect Supp AR Q6HR PRN Vomiting Sevelamer Carbonate 800 mg 01/04/21 07:30 01/08/21 08:49 Sevelamer Carbonate 800 Mg Tab PO 800 mg AC THERESE Administration Sodium Bicarbonate 650 mg 01/04/21 10:00 01/07/21 21:27 Sodium Bicarbonate 650 Mg Tab PO 650 mg BID [facility]ER[facility] Administration Sodium Chloride 10 ml 01/04/21 10:00 01/08/21 05:48 Sodium Chloride 0.9% 10 Ml Flush Syringe IV 10 ml BID THERESE Administration Sodium Chloride 10 ml 01/03/21 22:13 Sodium Chloride 0.9% 10 Ml Flush Syringe IV PRN PRN LINE FLUSH Tramadol HCl 50 mg 01/03/21 22:13 Tramadol 50 Mg Tab PO Q6H PRN Pain, Moderate (4-6) Zolpidem Tartrate 5 mg 01/04/21 22:00 01/07/21 21:28 Zolpidem 5 Mg Tab PO 5 mg QHS [facility]ER[facility] Administration Nutrition/Malnutrition Assess - Dietary Evaluation Nutrition/Malnutrition Findings: Nutrition Notes Start: 01/07/21 14:08 Freq: Status: Active Protocol: Document 01/07/21 14:08 CW (Rec: 01/07/21 14:17 CW [id number]) Nutrition Notes Need for Assessment generated from: MD Order,Education Initial or Follow up Brief Note Current Diagnosis CKD (stage V CKD),Coronary Artery Disease,Hypertension Other Pertinent Diagnosis GERD, on HD MWF, Current Diet Cardiac Diet Weight Status Obese Subjective/Other Information MD consult r/t heart healthy diet. Pt reports having good knowledge of heart healthy diet. Pt was able to describe ways in which to follow a heart healthy diet and explaind the methods/ precautions she has taken already. Pt still accepted diet education handout. Current % PO Good (75-100%) Nutrition Intervention Teaching Recipient Patient Learning Readiness Good Teaching Methods Discussion,Handout Response to Teaching Return demonstration,Verbalize understanding Education Handouts Provided Heart healthy nutrition therapy RD phone number provided Yes Patient aware of follow up options Yes Anticipated Discharge Needs: heart healthy Renal Diet Revisit per MD consult or patient Sign Off request: Additional Comments S/O for good intake and understanding of heart healthy requirements
--- NOTE | 2021-01-08 09:50 | Discharge Summary ---
Providers - Providers Date of Admission: 01/03/21 21:38 Date of discharge: 01/08/21 Attending physician: EVELINA ROSENBAUM 01/03/21 Consult to Cardiac Rehabilitation [CONS] Routine Reason For Exam: Phase I 01/03/21 22:13 Consult to Cardiology [CONS] Routine Consulting Provider: JORGE BISHOP Reason For Exam: chest pain 01/04/21 08:37 Consult to Physician [CONS] Routine Comment: Consulting Provider: DOMINGA BUTLER Physician Instructions: Reason For Exam: ESRD oN HD 01/06/21 Consult to Cardiac Rehabilitation [CONS] Routine Reason For Exam: post pci 01/07/21 08:36 Consult to Dietitian/Nutrition [CONS] Routine Physician Instructions: Reason For Exam: Heart Healthy Diet Education Reason for Consult: Diet education Primary care physician: ZA DURON Hospitalization Reason for admission: cp Condition: Stable Hospital course: 60-year-old -[place] female with known history of coronary artery disease with stent in the past, hypertension, COPD, GERD TIA, end-stage renal disease on dialysis on Sunday, Sunday and Sunday presenting to the emergency room yesterday complaining of chest pain. The patient was admitted with diagnosis of chest pain. EKG revealed normal sinus rhythm with no ST-T wave changes. Troponin was found to be normal. However, pt had an abnormal MPI and underwent cardiac cath at recommendations of Cardiology. The cath revealed greater than 99% stenosis of the distal LAD, we performed successful angioplasty with coronary stenting using drug-eluting stents. Excellent postprocedure result. Patient will be started on dual oral antiplatelet therapy with Plavix, and observed post intervention overnight. Anticipated discharge on 01/07 after her routine hemodialysis. However, While at hemodialysis, patient developed a burst of nonsustained ventricular tachycardia, followed by a sustained narrow complex tachycardia that appeared to be an atrial tachycardia. She was ordered for 5 mg intravenous metoprolol, but tachycardia resolved spontaneously with cessation of dialysis. Her discharge orders were discontinued. Cardiology initiated amiodarone. Patient was monitored on telemetry overnight and had no other episodes. Cardiology felt pt was stable for d/c. D/C time 35 minutes. Disposition: TO HOME OR SELFCARE - Discharge Diagnoses (1) GERD (gastroesophageal reflux disease) Status: Acute (2) Chest pain Status: Acute Core Measure Documentation - Palliative Care Palliative Care/ Comfort Measures: Not Applicable - Core Measures Any of the following diagnoses?: none Exam - Constitutional Vitals: Temp Pulse Resp BP Pulse Ox 97.8 F 69 18 96/39 100 01/08/21 07:43 01/08/21 09:18 01/08/21 08:21 01/08/21 09:18 01/08/21 07:43 General appearance: Present: no acute distress, well-nourished - EENT Eyes: Present: PERRL ENT: hearing intact, clear oral mucosa - Neck Neck: Present: supple, normal ROM - Respiratory Respiratory effort: normal Respiratory: bilateral: CTA - Cardiovascular Heart Sounds: Present: S1 & S2. Absent: rub, click - Extremities Extremities: pulses symmetrical, No edema Peripheral Pulses: within normal limits - Abdominal General gastrointestinal: Present: soft, non-tender, non-distended, normal bowel sounds Female genitourinary: Present: normal - Integumentary Integumentary: Present: clear, warm, dry - Musculoskeletal Musculoskeletal: gait normal, strength equal bilaterally - Psychiatric Psychiatric: appropriate mood/affect, intact judgment & insight - Neurologic Neurologic: CNII-XII intact, moves all extremities Plan Activity: advance as tolerated Weight Bearing Status: Weight Bear as Tolerated Diet: low fat, low cholesterol, low salt Follow up with: ZA DURON MD [Primary Care Provider] - 3-5 Days Prescriptions: Amiodarone [Cordarone 200 MG TAB] 200 mg PO DAILY #30 tablet Aspirin EC [Ecotrin] 325 mg PO QDAY #30 tablet hydrALAZINE 25 mg PO BID #60 ISOSORBIDE MONOnitrate [Imdur ER] 30 mg PO QDAY #60 tablet AtorvaSTATin [Lipitor] 40 mg PO QHS #30 tablet Metoprolol [Lopressor TAB] 25 mg PO Q8H #90 tablet polyethylene glycoL 3350 [Miralax 3350] 17 gm PO QDAY #30 Montelukast Sodium 10 mg PO DAILY #30 Calcium Acetate [Phoslo] 667 mg PO DAILY #30 cap Clopidogrel [Plavix] 75 mg PO QDAY #30 tablet Pantoprazole [Protonix TAB] 40 mg PO QDAY #30 Rosuvastatin Calcium 5 mg PO DAILY #30
[2021-01-08] MEDS: ASPIRIN EC 325 MG TAB PO SCH (10:08)
[2021-01-08] MEDS: PANTOPRAZOLE 40 MG TAB PO SCH (10:08)
[2021-01-08] MEDS: CALCITRIOL 0.5 MCG CAP PO SCH (10:08)
[2021-01-08] MEDS: AMIODARONE 200 MG TAB PO SCH (10:08)
[2021-01-08] MEDS: SODIUM BICARBONATE 650 MG TAB PO SCH (10:08)
[2021-01-08] MEDS: CLOPIDOGREL 75 MG TAB PO SCH (10:08)
--- NOTE | 2021-01-08 11:07 | Progress Note ---
Assessment and Plan #CAD s/p distal LAD stent 01/06/21 #Paroxysmal SVT, possibly AT #Lightheadedness #ESRD on HD -No further occurrence of SVT on telemetry monitoring overnight. -Continue amiodarone and metoprolol for SVT suppression. -BP low and patient intermittently lightheaded. Will d/c imdur and hydralazine. -Counseled on importance of medication compliance. Continue ASA, plavix, atorvastatin. -Patient may be discharged from cardiac stand point. Subjective Date of service: 01/08/21 Interval history: No complaints. No CP/SOB. Intermittent lightheadedness. Tele - reviewed, SR, no recurrence of SVT Objective Vital Signs Temp Pulse Pulse Resp Resp BP Pulse Ox 01/08/21 09:18 69 96/39 01/08/21 09:17 69 96/39 01/08/21 08:21 65 18 01/08/21 07:43 97.8 F 69 16 96/39 100 01/08/21 04:06 97.8 F 72 18 126/33 99 01/07/21 23:50 98.0 F 64 18 115/46 100 01/07/21 22:00 95 H 01/07/21 21:28 69 123/53 01/07/21 19:29 98.0 F 20 123/53 01/07/21 17:00 108/40 01/07/21 16:58 97.3 F L 61 20 111/36 99 01/07/21 12:15 98.0 F 156 H 18 152/94 01/07/21 11:50 156 H 152/94 01/07/21 11:30 72 145/70 01/07/21 11:15 67 127/84 - Physical Examination Narrative exam: Gen-NAD, resting in bed Neck-supple, no JVD HEENT-atraumatic, MMM CV-RRR, no murmur Lungs-CTAB, no wheezing Abd-soft/nt/nd Ext-no edema, warm to touch Neuro-alert and oriented, no facial droop General: No Apparent Distress Neuro: Positive: Grossly Intact Abdomen: Positive: Soft Skin: Positive: Clear Extremities: Absent: edema - Labs and Meds CBC 01/07/21 Range/Units 13:23 WBC 8.5 (4.5-11.0) K/mm3 RBC 3.67 (3.65-5.03) M/mm3 Hgb 11.4 (10.1-14.3) gm/dl Hct 35.1 (30.3-42.9) % Plt Count 157 (140-440) K/mm3 Lymph # (Auto) 2.0 (1.2-5.4) K/mm3 Bates # (Auto) 0.9 H (0.0-0.8) K/mm3 Eos # (Auto) 0.3 (0.0-0.4) K/mm3 Baso # (Auto) 0.1 (0.0-0.1) K/mm3 Comprehensive Metabolic Panel 01/07/21 Range/Units 16:42 Sodium 129 L (137-145) mmol/L Potassium 4.1 (3.6-5.0) mmol/L Chloride 88.4 L (98-107) mmol/L Carbon Dioxide 26 (22-30) mmol/L BUN 26 H (7-17) mg/dL Creatinine 5.1 H (0.6-1.2) mg/dL Glucose 81 (65-100) mg/dL Calcium 8.6 D (8.4-10.2) mg/dL
[2021-01-08] MEDS: CHOLECALCIFEROL (VIT D3) 1000 UNIT (25 mcg) TAB PO SCH (11:30)
[2021-01-08 12:10] VITALS: BP 124/82
== END 2021-01-08 15:40 | disposition home or self-care (01) ==
LOC: ED 13:17 → 4A 21:38
PROVIDERS: ADMIT Internal Medicine Geriatric Medicine; ATTEND Hospitalist
DX: R07.89 Other chest pain (principal); I25.10 Atherosclerotic heart disease of native coronary artery without angina pectoris; I12.0 Hypertensive chronic kidney disease with stage 5 chronic kidney disease or end stage renal disease; N18.6 End stage renal disease; D63.1 Anemia in chronic kidney disease; M19.90 Unspecified osteoarthritis, unspecified site; I47.1 Supraventricular tachycardia; I25.2 Old myocardial infarction; K21.9 Gastro-esophageal reflux disease without esophagitis; J44.9 Chronic obstructive pulmonary disease, unspecified; N25.81 Secondary hyperparathyroidism of renal origin; Z90.49 Acquired absence of other specified parts of digestive tract; Z99.2 Dependence on renal dialysis; Z95.1 Presence of aortocoronary bypass graft; Z98.84 Bariatric surgery status; Z98.890 Other specified postprocedural states; Z79.82 Long term (current) use of aspirin
CPT/HCPCS: 36415; 71045; 71046; 78452; 80048; 80053; 80061; 80074; 82962; 83735; 84484; 85025; 85347; 85610; 93005; 93017; 93458; 94640; 96365; 96372; 99285; A9270; A9502; C1725; C1760; C1769; C1874; C1887; C9600; G0257; G0378; J0282; J1200; J1644; J1720; J2250; J2785; J3010; J7040; J7512; 92928; Q9967